=== PATIENT | female | born 1985 | race Caucasian/White ===

== ENCOUNTER → 2018-11-24 16:16 | Outpatient (CLI) | payer SELFPAY ==
[2018-10-25 13:57] VITALS: BMI 22.2
--- NOTE | 2018-11-24 16:20 | US_ITS ---
STUDY: SECOND AND THIRD TRIMESTER OBSTETRICAL ULTRASOUND REASON FOR EXAM: Female, 33 years old. 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 LMP: July 03, 2018. TECHNIQUE: Transabdominal TECHNICAL QUALITY: Adequate. PRIOR ULTRASOUND: None. FINDINGS: There is a single intrauterine fetus. The fetus is in a transverse lie with the head on the maternal right side. There is demonstrated cardiac activity with a heart rate of 167 bpm. There is a normal amniotic fluid volume. The placenta is posterior in location and is not low lying. There are Grade 0 placental changes. The cervix measures 4.6 cm in length. The bilateral adnexal regions are normal. BIOMETRY: BPD: 4.88 cm: 20 weeks, 6 days HC: 18.32 cm: 20 weeks, 5 days AC: 15.75 cm: 21 weeks, 0 days FL: 3.58 cm: 21 weeks, 3 days CI: FL/BPD: 73 FL/HC: FL/AC: 23 HC/AC: 1.16 age by current US: 21 weeks, 0 days. KASHIF by current US: April 06, 2019. Estimated weight: 395 grams, +/- 58 grams, 71 %. Age by LMP: 20 weeks, 4 days. KASHIF by LMP: April 09, 2019. ANATOMY: Gender: Male Cranium: Normal lateral ventricles. Normal choroid plexus. Normal cerebellum. Normal cisterna magna. Normal face, nose and lips. Chest: Normal 4-chamber heart. Abdomen/Pelvis: Normal diaphragm. Normal stomach. Normal abdominal wall. Normal cord insertion. Normal 3 vessel cord. Normal kidneys. Normal bladder. Spine: Normal cervical spine. Normal thoracic spine. Normal lumbar spine. Normal sacrum. Extremities: Normal bilateral upper extremities. Normal bilateral lower extremities. US/OB Anatomy Scan IMPRESSION: 1. Live single intrauterine at 21 weeks, 0 days. KASHIF is April 06, 2019. 2. EFW 395 g. 3. Anterior grade 0 placenta. 4. Adequate amniotic fluid. 5. Transverse lie with head to maternal right. 6. No visualized anatomic abnormality. Electronically Signed: Richard Enlgand DO at 9:47 EDT Tel [phone], Service support ,
== END ==
PROVIDERS: Referring Provider Nurse Practitioner Women's Health; Visit Provider Nurse Practitioner Women's Health
DX: Z34.02 Encounter for supervision of normal first pregnancy, second trimester (principal)
CPT/HCPCS: 76805

== ENCOUNTER → 2019-01-21 | Outpatient (CLI) | payer SELFPAY ==
[2019-01-21 10:27] VITALS: BMI 22.2
[2019-01-21 11:51] LABS: Absolute Neutrophil Count 7.5 X10^3/uL (2.0-7.7); Basophil# 0.02 X10^3/uL; Basophil% 0.2 % (0-1); Eosinophil# 0.29 X10^3/uL; Eosinophils% 2.9 % (0-5); Hematocrit 33.1 % (37-47); Hemoglobin 11.2 g/dl (12.0-15.0); Lymphocyte % 14.2 % (19-41); Mean Corp Hgb Conc 33.8 g/gl (32-36); Mean Corpuscular Hgb 30.4 pg (27.0-32.0); Mean Corpuscular Volume 89.7 fL (81-99); Mean Platelet Vol. 9.2 fl (6.2-12.0); Monocyte# 0.63 X10^3/uL; Monocyte% 6.4 % (0-10); Neutrophil # 7.52 X10^3/uL (2.7-7.7); Platelet Count 285 K/mm3 (150-450); RBC Distribution Width CV 12.8 % (11.6-14.6); RBC Distribution Width SD 41.1 fl (35.1-43.9); Red Blood Count 3.69 M/mm3 (4.2-5.4); White Blood Count 9.9 K/mm3 (4.4-11.0)
[2019-01-21 11:56] LABS: POSITIVE COUNT NO; POSITIVE DIFFERENTIAL NO; POSITIVE MORPHOLOGY NO
[2019-01-21 12:05] LABS: Glucose Challenge Gest 1H 50g 90 mg/dL (70-140)
[2019-01-22 12:33] LABS: HEPATITIS B SURFACE AG Negative (Negative)
[2019-01-28 01:44] LABS: Rapid Plasmin Reagin (RPR) NONREACTIVE (NONREACTIVE)
== END | disposition home or self-care (01) ==
LOC: LAB 10:36
PROVIDERS: Referring Provider Nurse Practitioner Women's Health; Visit Provider Nurse Practitioner Women's Health
DX: Z34.90 Encounter for supervision of normal pregnancy, unspecified, unspecified trimester (principal)
CPT/HCPCS: 36415; 82950; 85025; 86592; 87340

== ENCOUNTER → 2019-03-16 | Outpatient (CLI) | payer SELFPAY ==
[2019-03-16 11:36] VITALS: BMI 22.2
== END | disposition home or self-care (01) ==
PROVIDERS: Referring Provider Obstetrics & Gynecology; Visit Provider Obstetrics & Gynecology
DX: Z34.90 Encounter for supervision of normal pregnancy, unspecified, unspecified trimester (principal)
CPT/HCPCS: 87081

== ENCOUNTER 2019-04-04 05:23 | Inpatient (IN) | payer SELFPAY ==
[2018-10-25 13:57] VITALS: BMI 22.2
[2019-03-30 12:02] VITALS: BMI 22.2
--- NOTE | 2019-04-04 05:50 | HP.PCM_ITS ---
- Problem List (1) Active labor at term Status: Acute (2) Susceptible to varicella (non-immune), currently Status: Acute Comment: had disease as a child, negative immunity, discussed avoidance (3) Rubella non-immune status, antepartum Status: Acute Comment: can't maintain immunity, given vaccine (4) Status: Acute Qualifiers: Comment: carrier screening negative, normal anatomy, reviewed [facility] records (5) Supervision of normal Status: Acute Qualifiers: Comment: PRR KASHIF 04/09/19 Arvind History Date of Admission: 04/04/19 Final KASHIF: 04/09/19 Gestational age: 39 Weeks and 2 Days History of this : This is a 33 year-old, , at 39w2d weeks gestational age comes in active labor 5 cm dilated. She has had some bloody show and regular contractions since 3 AM. Patient denies any loss of fluid and admits good movement. Patient has had an uncomplicated so far with a history of infertility.. Medical History: Medical History (Last Reviewed 03/23/19 @ 11:49 by Alondra Alston) Infertility Surgical History: Surgical History (Last Reviewed 03/23/19 @ 11:49 by Alondra Alston) H/O wisdom tooth extraction K08.409 History of hysteroscopy Z98.890 Allergies No Known Allergies Allergy (Verified 03/23/19 11:48) Home Medications: Home Medications vitamin#30 30 mg iron-10 mg iron-folic acid 1 mg-omg3 capsule cap PO cap 03/02/19 Smoking Status: Never smoker Alcohol: None Number of Fetus(es): 1 Heart Tracing: fht 130 moderate variability reactive no decelerations category I tracing [facility]: regular History Past Pregnancies: Past Pregnancies Delivery Date Name GA/Weeks Outcome Route Weight Gender Labor Length Anesthesia Delivery Location Provider FOB Labs: Social History Smoking Status Never smoker Expected Delivery Method: Spontaneous Vaginal Review of Systems Constitutional: Denies: Fever, Malaise Eyes: Denies: Blurred vision, Vision Change HEENT: Denies: Head Aches, Visual Changes Cardiovascular: Denies: Chest Pain, Palpitations Respiratory: Denies: Cough, Shortness of Breath, Wheezing Gastrointestinal: Denies: Abdominal Pain, Diarrhea, Nausea, Vomiting Genitourinary: Denies: Dysuria, Hematuria Musculoskeletal: Denies: Joint Pain, Muscle pain Skin: Denies: Lesions, Rash Neurological: Denies: Blurred vision, Focal weakness, Headaches Psychiatric: Denies: Anxiety, Depression Endocrine: Denies: Heat/ Cold Intolerance Hematologic/ Lymphatic: Denies: Easy Bruising, Easy Bleeding Physical Exam General: Alert, Cooperative, No apparent distress HEENT: Atraumatic, Normocephalic. Negative for: Thyromegaly, Lymphadenopathy Cardiovascular: Regular rate Lungs: Normal air movement Abdomen: Soft, Non Tender, Gravid Neurological: Deep Tendon Reflexes 2+/4 and Symmetrical, Neuro grossly intact. 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 Negative for: Vulvar lesions Estimated gestational size: Appropriate for gestational size Presentation: Cephalic Cervix Dilation (cm): 5 Station: 0 Effacement (%): 80 Assessment/Plan All Active Problems (Last Reviewed 03/23/19 @ 11:49 by Alondra Alston) Active labor at term (Acute) Susceptible to varicella (non-immune), currently (Acute) Rubella non-immune status, antepartum (Acute) (Acute) Supervision of normal (Acute) This is a 33 year-old, , at 39 weeks gestational age presents IAL. Patient presents IAL, plan expectant management for , pitocin/AROM PRN if needed. Pain management: Prefers minimal intervention but open . GBS negative. Management of any complications: None I have reviewed the [facility] and made any clinically relevant updates.
[2019-04-04 05:53] VITALS: BMI 27.1
[2019-04-04] MEDS: Lactated Ringers 1,000 ML 50 ML IV ×2 (05:56→07:06)
[2019-04-04 06:19] LABS: Absolute Lymphocyte Count 2.01 X10^3/uL (0.83-4.51); Absolute Neutrophil Count 6.4 X10^3/uL (2.0-7.7); Basophil# 0.04 X10^3/uL; Basophil% 0.4 % (0-1); Eosinophil# 0.32 X10^3/uL; Eosinophils% 3.4 % (0-5); Hematocrit 37.3 % (37-47); Hemoglobin 12.8 g/dL (12.0-15.0); Lymphocyte # 2.01 X10^3/ul (4.0); Lymphocyte % 21.2 % (19-41); Mean Corp Hgb Conc 34.3 g/dL (32-36); Mean Corpuscular Hgb 31.6 pg (27.0-32.0); Mean Corpuscular Volume 92.1 fL (81-99); Monocyte# 0.69 X10^3/uL; Monocyte% 7.3 % (0-10); NRBC Flagged by Analyzer 0 % (0-5); Neutrophil # 6.35 X10^3/uL (2.7-7.7); Neutrophil % 67.2 % (47-70); Platelet Count 247 K/mm3 (150-450); RBC Distribution Width CV 12.3 % (11.6-14.6); Red Blood Count 4.05 M/mm3 (4.2-5.4); White Blood Count 9.5 K/mm3 (4.4-11.0)
[2019-04-04] MEDS: Nalbuphine 10 MG/ML Ampul IV (07:06)
[2019-04-04] MEDS: 0.9% Saline Lock 10 ML Syringe IV (07:06)
[2019-04-04] MEDS: Oxytocin 30 units/NS 500 ml 30 UNITS/500 ML IV.SOLN 334 UNITS IV (10:05)
--- NOTE | 2019-04-04 10:31 | OP.PCM_ITS ---
Problem List (1) Active labor at term Status: Acute (2) Susceptible to varicella (non-immune), currently Status: Acute Comment: had disease as a child, negative immunity, discussed avoidance (3) Rubella non-immune status, antepartum Status: Acute Comment: can't maintain immunity, given vaccine (4) Status: Acute Qualifiers: Comment: carrier screening negative, normal anatomy, reviewed [facility] records (5) Supervision of normal Status: Acute Qualifiers: Comment: PRR KASHIF 04/09/19 Arvind Vaginal Delivery Maternal Presentation: Active Labor ial 39 weeks Amniotic Membrane Rupture Type: Spontaneous Amniotic Fluid Description: Clear Final KASHIF: 04/09/19 Gestational age: 39 Weeks and 2 Days Date of Procedure: 04/04/19 Pre-Operative Diagnosis: ial Post-Operative Diagnosis: same Surgery/ Procedure Performed: Spontaneous Vaginal Delivery Type of Anesthesia: Local with 1% lidocaine Description of Procedure: Patient began pushing and delivered the head in the LIZ presentation. The head was delivered atraumatically. The anterior and posterior shoulders delivered without complication followed by the rest of the infant and the was placed on the maternal abdomen. Delayed cord clamping was employed for approximately 60 seconds. Cord was clamped and cut and gentle traction was applied to the cord and the placenta delivered spontaneously immediately following it was noted to be intact with three-vessel cord. The perineum and vagina were inspected and to have a second-degree perineal laceration was repair ed in the usual fashion with 3-0 Vicryl repeat. EBL was 100 cc. Patient and infant tolerated delivery well. Presentation: LIZ Placental Delivery Description: Spontaneous Cord Vessel Description: 3 Vessels Cord Entanglement: None Estimated Blood Loss: 100 A gender: Male Episiotomy Description: None Laceration: Perineal Extension/lac, 2nd degree Medications given after delivery: IV Pitocin Complications: None
[2019-04-04] MEDS: Oxytocin 30 units/NS 500 ml 30 UNITS/500 ML IV.SOLN 167 UNITS IV (10:35)
[2019-04-04] MEDS: Naproxen 250 MG Tablet 500 MG PO ×2 (12:05→21:43)
[2019-04-04 14:51] VITALS: BP 107/74; PULSE 85; RESP 16; TEMP 36.4; O2SAT 95
[2019-04-04 15:30] VITALS: BP 107/63; PULSE 78; RESP 15; TEMP 36.8
[2019-04-04 20:20] VITALS: BP 130/79; PULSE 75; RESP 16; TEMP 36.9; O2SAT 100
[2019-04-04 23:41] VITALS: BP 117/63; PULSE 67; RESP 16; TEMP 36.9; O2SAT 98
[2019-04-05 03:50] VITALS: BP 120/61; PULSE 74; RESP 18; TEMP 36.7; O2SAT 99
[2019-04-05 08:25] VITALS: BP 108/62; PULSE 69; RESP 16; TEMP 36.9; O2SAT 96
--- NOTE | 2019-04-05 09:49 | PCM.PN.OB ---
Patient Problems: Active and Suspected Problems (Last Reviewed 03/23/19 @ 11:49 by Alondra Alston) Active labor at term (Acute) Subjective: doing well no complaints pain controlled no CP SOB N V ambulating well tolerating po lochia moderate, going well - Physical Exam General: Alert, Oriented x3 Vital Signs Temp Pulse Resp BP Pulse Ox 98.4 F 69 16 108/62 96 04/05/19 08:25 04/05/19 08:25 04/05/19 08:25 04/05/19 08:25 04/05/19 08:25 Oxygen Delivery Method Room Air Weight: 162 lb 12.8 oz Body Mass Index (BMI) 27.1 Medical Necessity - Tobacco Use Smoking Status: Never smoker Assessment/Plan All Active Problems (Last Reviewed 03/23/19 @ 11:49 by Alondra Alston) Active labor at term (Acute) Susceptible to varicella (non-immune), currently (Acute) Rubella non-immune status, antepartum (Acute) (Acute) Supervision of normal (Acute) s/p PPD # 1 1. routine post delivery care 2. breast feeding- support given 3. rh positive 4. rubella vaccine and varicella vaccine to be given
[2019-04-05] MEDS: Naproxen 250 MG Tablet 500 MG PO (13:17)
[2019-04-05 13:43] VITALS: BP 101/69; PULSE 84; RESP 16; TEMP 36.9; O2SAT 97
[2019-04-05 20:23] VITALS: BP 105/75; PULSE 77; RESP 18; TEMP 36; O2SAT 97
[2019-04-05] MEDS: Acetaminophen 500 MG Tablet 1000 MG PO (20:28)
[2019-04-06 01:38] VITALS: BP 104/60; PULSE 69; RESP 16; TEMP 36.6; O2SAT 97
--- NOTE | 2019-04-06 07:38 | PCM.PN.OB ---
Patient Problems: Active and Suspected Problems (Last Reviewed 03/23/19 @ 11:49 by Alondra Alston) Active labor at term (Acute) Subjective: doing well no complaints pain controlled no CP SOB N V ambulating well tolerating po lochia moderate, going well with some assistance, baby is tongue-tied. Seeing ENT later today. - Physical Exam General: Alert, Oriented x3 Abdomen: Soft, Non Tender, - - FF below U Vital Signs Temp Pulse Resp BP Pulse Ox 97.9 F 69 16 104/60 97 04/06/19 01:38 04/06/19 01:38 04/06/19 01:38 04/06/19 01:38 04/06/19 01:38 Oxygen Delivery Method Room Air Weight: 162 lb 12.8 oz Body Mass Index (BMI) 27.1 Medical Necessity - Tobacco Use Smoking Status: Never smoker Assessment/Plan All Active Problems (Last Reviewed 03/23/19 @ 11:49 by Alondra Alston) Active labor at term (Acute) Susceptible to varicella (non-immune), currently (Acute) Rubella non-immune status, antepartum (Acute) (Acute) Supervision of normal (Acute) s/p PPD # 2 1. routine post delivery care 2. breast feeding- support given 3. rh positive 4. rubella nonimmune 5. 2nd degree perineal lac-enc stool softener 6. home today
--- NOTE | 2019-04-06 07:40 | DCINST_ITS ---
Additional Instructions: If you experience any of the following, contact your healthcare provider. * Bleeding that soaks a pad every hour for 2 hours * Fever 100.4 or higher * Unrelieved incision or abdominal pain * Swelling, redness, discharge or bleeding from your incision or episiotomy site * Your incision begins to separate * Problems urinating (including inability to urinate or burning while urinating). * Visual changes * Severe headache * Flu-like symptoms * Pain or redness in one of both of your breasts * Pain, warmth, tenderness or swelling in your legs, especially the calf area * Frequent nausea and vomiting * Symptoms of depression or anxiety If you experience any of the following, call 911 or go to the nearest Emergency Room. * Chest pain * Problems breathing * Seizure activity * Partial or complete paralysis of a body part, slurred speech, weakness or drooping of the face, or a sudden inability to walk or hold your balance Allergies/Adverse Reactions: Allergies No Known Allergies Allergy (Verified 04/04/19 05:54) Medications to take at Discharge vitamin#30 30 mg iron-10 mg iron-folic acid 1 mg-omg3 capsule 1 cap PO DAILY cap 03/02/19 Primary Care Physician: Care Physician,No Primary [Primary Care Provider] - Test Results: Test results from this visit will be discussed in further detail at your follow- up appointment, if applicable.
--- NOTE | 2019-04-06 07:40 | PCM.DCVAG ---
Additional Instructions: If you experience any of the following, contact your healthcare provider. Bleeding that soaks a pad every hour for 2 hours Fever 100.4 or higher Unrelieved incision or abdominal pain Swelling, redness, discharge or bleeding from your incision or episiotomy site Your incision begins to separate Problems urinating (including inability to urinate or burning while urinating). Visual changes Severe headache Flu-like symptoms Pain or redness in one of both of your breasts Pain, warmth, tenderness or swelling in your legs, especially the calf area Frequent nausea and vomiting Symptoms of depression or anxiety If you experience any of the following, call 911 or go to the nearest Emergency Room. Chest pain Problems breathing Seizure activity Partial or complete paralysis of a body part, slurred speech, weakness or drooping of the face, or a sudden inability to walk or hold your balance Allergies/Adverse Reactions: Allergies No Known Allergies Allergy (Verified 04/04/19 05:54) Medications to take at Discharge vitamin#30 30 mg iron-10 mg iron-folic acid 1 mg-omg3 capsule 1 cap PO DAILY cap 03/02/19 Primary Care Physician: Care Physician,No Primary [Primary Care Provider] - Test Results: Test results from this visit will be discussed in further detail at your follow-up appointment, if applicable.
[2019-04-06 08:40] VITALS: BP 113/70; PULSE 74; RESP 15; TEMP 36.9; O2SAT 96
[2019-04-06] MEDS: Senna/Docusate Sodium 1 Tablet PO (09:16)
[2019-04-06 13:38] VITALS: PULSE 74; RESP 15
== END 2019-04-06 13:25 | disposition home or self-care (01) | DRG 807 ==
PROVIDERS: Admitting Provider Obstetrics & Gynecology; Referring Provider Obstetrics & Gynecology; Visit Provider Obstetrics & Gynecology
DX: O70.1 Second degree perineal laceration during delivery (principal); Z37.0 Single live birth; Z3A.39 39 weeks gestation of pregnancy
CPT/HCPCS: 59025; 59050; 85025; 86850; 86900; 99218; J7120; 90716; A4216; G0378

== ENCOUNTER → 2019-05-24 | Outpatient (CLI) | payer SELFPAY ==
[2019-05-24 10:15] VITALS: BMI 27.1
[2019-05-29 13:36] LABS: HPV APTIMA, High Risk Negative (Negative)
== END | disposition home or self-care (01) ==
PROVIDERS: Referring Provider Obstetrics & Gynecology; Visit Provider Obstetrics & Gynecology
DX: Z12.4 Encounter for screening for malignant neoplasm of cervix (principal)
CPT/HCPCS: 87624; 88175; G0145

== ENCOUNTER → 2020-02-22 | Outpatient (CLI) | payer SELFPAY ==
[2020-02-22 12:07] VITALS: BMI 27.1
[2020-02-22 17:04] LABS: Amphetamine Urine VISTA NEGATIVE (<1000 ng/mL); Barbiturate Urine VISTA NEGATIVE (< 200 ng/mL); Benzodiazepine Urine VISTA NEGATIVE (< 200 ng/mL); Cocaine Urine VISTA NEGATIVE (< 300 ng/mL); Ecstacy Urine VISTA NEGATIVE (< 500 ng/mL); Methadone Urine VISTA NEGATIVE (< 300 ng/mL); PCP Urine VISTA NEGATIVE (< 25 ng/mL); THC Urine VISTA NEGATIVE (< 50 ng/mL); Vista UDS pH Range 6
[2020-02-22 18:59] LABS: Chlamydia Trachomatis by PCR Negative (Negative); Neisserai gonorrhoeae by PCR Negative (Negative); Probe Check PASS; Sample Adequacy Control PASS; Specimen Processing Control PASS
== END | disposition home or self-care (01) ==
LOC: LABSPEC 15:19
PROVIDERS: PCP Nurse Practitioner Family; Referring Provider Obstetrics & Gynecology; Visit Provider Obstetrics & Gynecology
DX: O09.90 Supervision of high risk pregnancy, unspecified, unspecified trimester (principal); Z3A.00 Weeks of gestation of pregnancy not specified
CPT/HCPCS: 80307; 87086; 87088; 87491; 87591

== ENCOUNTER → 2020-03-22 13:58 | Outpatient (CLI) | payer SELFPAY ==
[2020-03-22 13:51] VITALS: BMI 27.1
[2020-03-22 14:36] LABS: Absolute Lymphocyte Count 1.74 X10^3/uL (0.83-4.51); Absolute Neutrophil Count 6.4 X10^3/uL (2.0-7.7); Basophil# 0.03 X10^3/uL; Basophil% 0.3 % (0-1); Eosinophil# 0.28 X10^3/uL; Eosinophils% 3.1 % (0-5); Hematocrit 37.4 % (37-47); Hemoglobin 12.5 g/dL (12.0-15.0); Lymphocyte # 1.74 X10^3/ul (4.0); Lymphocyte % 19.4 % (19-41); Mean Corp Hgb Conc 33.4 g/dL (32-36); Mean Corpuscular Hgb 30.4 pg (27.0-32.0); Mean Platelet Vol. 9.1 fl (6.2-12.0); Monocyte# 0.49 X10^3/uL; Monocyte% 5.5 % (0-10); NRBC Flagged by Analyzer 0 % (0-5); Neutrophil % 71.4 % (47-70); Platelet Count 294 K/mm3 (150-450); RBC Distribution Width CV 12.3 % (11.6-14.6); RBC Distribution Width SD 40.3 fl (35.1-43.9); Red Blood Count 4.11 M/mm3 (4.2-5.4)
[2020-03-24 09:31] LABS: HIV - WCH Non-Reactive (Nonreactive); Hepatitis B Surface Antigen Non-Reactive (Nonreactive); Hepatitis C Antibody Non-Reactive (Nonreactive); Rubella IgG 16.4 IU/mL
[2020-03-29 02:01] LABS: Rapid Plasmin Reagin (RPR) NONREACTIVE (NONREACTIVE)
== END ==
PROVIDERS: PCP Nurse Practitioner Family; Referring Provider Obstetrics & Gynecology; Visit Provider Obstetrics & Gynecology
DX: O09.90 Supervision of high risk pregnancy, unspecified, unspecified trimester (principal); Z3A.00 Weeks of gestation of pregnancy not specified
CPT/HCPCS: 36415; 85025; 86592; 86703; 86762; 86803; 86850; 86900; 86901; 87340

== ENCOUNTER → 2020-05-03 15:51 | Outpatient (CLI) | payer SELFPAY ==
[2020-03-22 13:51] VITALS: BMI 27.1
[2020-04-19 13:55] VITALS: BMI 27.1
--- NOTE | 2020-05-03 15:54 | US_ITS ---
STUDY: SECOND AND THIRD TRIMESTER OBSTETRICAL ULTRASOUND REASON FOR EXAM: Female, 34 years old ANATOMY LMP: 12/20/2019 TECHNIQUE: Transabdominal TECHNICAL QUALITY: Adequate. PRIOR ULTRASOUND: None. FINDINGS: There is a single intrauterine fetus. The fetus is in a cephalic presentation. There is demonstrated cardiac activity with a heart rate of 156 bpm. There is a normal amniotic fluid volume. The largest amniotic fluid pocket measures 2.4 cm. The placenta is anterior in location and is not low lying. There are Grade 0 placental changes. Placental lakes are seen. The cervix measures 3.4 cm in length. The bilateral adnexal regions are normal. BIOMETRY: BPD: 4.3: 18 weeks, 6 days HC: 16.3: 19 weeks, 0 days AC: 13.9: 19 weeks, 1 days FL: 2.9: 18 weeks, 5 days CI: FL/BPD: FL/HC: FL/AC: HC/AC: age by current US: 19 weeks, 0 days. KASHIF by current US: 09/27/2020. Estimated weight: 271 grams, +/- grams, 48 %. age by prior US: weeks, days. KASHIF by prior US: . Age by LMP: 19 weeks, 2 days. KASHIF by LMP: 09/25/2020. ANATOMY: Gender: Male Cranium: Normal lateral ventricles. Normal choroid plexus. Normal cerebellum. Normal cisterna magna. Normal face, nose and lips. Chest: Normal 4-chamber heart. Abdomen/Pelvis: Normal diaphragm. Normal stomach. Normal abdominal wall. Normal cord insertion. Normal 3 vessel cord. Normal kidneys. Normal bladder. Spine: Normal cervical spine. Normal thoracic spine. Normal lumbar spine. Normal sacrum. Extremities: Normal bilateral upper extremities. Normal bilateral lower extremities. US/OB Anatomy Scan IMPRESSION: Single live fetus in a vertex presentation. No demonstrated anatomic abnormality. Placenta is grade 0 and is not low-lying. Cervix is closed. age by current US: 19 weeks, 0 days. KASHIF by current US: 09/27/2020. Estimated weight: 271 grams, +/- grams, 48 %. Electronically Signed: Angus Talley MD at 20:00 EDT , Service support ,
== END ==
LOC: OPUS 15:54 → US 15:56
PROVIDERS: PCP Nurse Practitioner Family; Referring Provider Nurse Practitioner Women's Health; Visit Provider Nurse Practitioner Women's Health
DX: O09.90 Supervision of high risk pregnancy, unspecified, unspecified trimester (principal); Z3A.00 Weeks of gestation of pregnancy not specified
CPT/HCPCS: 76805

== ENCOUNTER → 2020-06-21 12:32 | Outpatient (CLI) | payer SELFPAY ==
[2020-05-17 13:35] VITALS: BMI 27.1
[2020-06-21 13:36] LABS: Absolute Lymphocyte Count 1.55 X10^3/uL (0.83-4.51); Absolute Neutrophil Count 7.1 X10^3/uL (2.0-7.7); Basophil# 0.04 X10^3/uL; Basophil% 0.4 % (0-1); Eosinophil# 0.39 X10^3/uL; Hematocrit 35.7 % (37-47); Hemoglobin 11.5 g/dL (12.0-15.0); Lymphocyte # 1.55 X10^3/ul (4.0); Lymphocyte % 16.1 % (19-41); Mean Corp Hgb Conc 32.2 g/dL (32-36); Mean Corpuscular Hgb 30.2 pg (27.0-32.0); Mean Corpuscular Volume 93.7 fL (81-99); Mean Platelet Vol. 9.3 fl (6.2-12.0); Monocyte# 0.51 X10^3/uL; Monocyte% 5.3 % (0-10); NRBC Flagged by Analyzer 0 % (0-5); Neutrophil # 7.11 X10^3/uL (2.7-7.7); Neutrophil % 73.9 % (47-70); Platelet Count 275 K/mm3 (150-450); RBC Distribution Width CV 13.1 % (11.6-14.6); RBC Distribution Width SD 44.9 fl (35.1-43.9); Red Blood Count 3.81 M/mm3 (4.2-5.4); White Blood Count 9.6 K/mm3 (4.4-11.0)
[2020-06-21 13:52] LABS: Glucose Challenge Gest 1H 50g 89 mg/dL (70-140)
== END ==
PROVIDERS: Obstetrics & Gynecology; PCP Nurse Practitioner Family; Referring Provider Obstetrics & Gynecology; Visit Provider Obstetrics & Gynecology
DX: O09.90 Supervision of high risk pregnancy, unspecified, unspecified trimester (principal); Z13.1 Encounter for screening for diabetes mellitus; Z3A.00 Weeks of gestation of pregnancy not specified
CPT/HCPCS: 36415; 82950; 85025; 86850; 86900; 86901

== ENCOUNTER → 2020-08-28 | Outpatient (CLI) | payer SELFPAY ==
[2020-08-28 13:40] VITALS: BMI 27.0
== END | disposition home or self-care (01) ==
PROVIDERS: PCP Nurse Practitioner Family; Visit Provider Obstetrics & Gynecology
DX: O09.90 Supervision of high risk pregnancy, unspecified, unspecified trimester (principal); Z3A.00 Weeks of gestation of pregnancy not specified
CPT/HCPCS: 87077; 87081; 87186

== ENCOUNTER 2020-09-24 12:50 | Inpatient (IN) | payer SELFPAY ==
[2020-09-24] VITALS (28 sets, daily range): BP systolic 100–122; BP diastolic 56–72; PULSE 68–86; RESP 16; TEMP 36.6–37.4; O2SAT 93–100; BMI 27.6
[2020-09-24] MEDS: Lactated Ringers 1,000 ML 50 ML IV (13:15)
[2020-09-24 13:24] LABS: Absolute Lymphocyte Count 1.56 X10^3/uL (0.83-4.51); Basophil# 0.04 X10^3/uL; Basophil% 0.3 % (0-1); Eosinophil# 0.15 X10^3/uL; Eosinophils% 1.2 % (0-5); Hematocrit 37.2 % (37-47); Hemoglobin 12.5 g/dL (12.0-15.0); Lymphocyte # 1.56 X10^3/ul (4.0); Lymphocyte % 12.5 % (19-41); Mean Corp Hgb Conc 33.6 g/dL (32-36); Mean Corpuscular Hgb 30.9 pg (27.0-32.0); Mean Corpuscular Volume 91.9 fL (81-99); Mean Platelet Vol. 9.5 fl (6.2-12.0); Monocyte# 0.73 X10^3/uL; Monocyte% 5.8 % (0-10); NRBC Flagged by Analyzer 0 % (0-5); Neutrophil # 9.95 X10^3/uL (2.7-7.7); Neutrophil % 79.7 % (47-70); Platelet Count 269 K/mm3 (150-450); RBC Distribution Width CV 12.7 % (11.6-14.6); RBC Distribution Width SD 42.5 fl (35.1-43.9); Red Blood Count 4.05 M/mm3 (4.2-5.4); White Blood Count 12.5 K/mm3 (4.4-11.0)
[2020-09-24] MEDS: Lactated Ringers 500 ML 999 ML IV (14:17)
[2020-09-24] MEDS: Oxytocin 30 units/NS 500 ml 30 UNITS/500 ML IV.SOLN 334 UNITS IV (14:46)
[2020-09-24] MEDS: Naproxen 250 MG Tablet 500 MG PO (15:43)
[2020-09-24] MEDS: Acetaminophen 500 MG Tablet 1000 MG PO (20:04)
[2020-09-24] MEDS: Senna/Docusate Sodium 1 Tablet PO (20:05)
[2020-09-25] MEDS: Naproxen 250 MG Tablet 500 MG PO (02:30)
[2020-09-25 04:30] VITALS: BP 106/64; PULSE 70; RESP 16; TEMP 37.2; O2SAT 95
--- NOTE | 2020-09-25 08:01 | HP.PCM_ITS ---
- Problem List (1) Active labor at term Status: Acute (2) 37 weeks gestation of Status: Acute Comment: electronic test ordered 09/04/20 (scheduled 09/20/20 @ 9:40) (3) AMA (advanced maternal age) multigravida 35+ Status: Acute Qualifiers: Comment: genetic counseling provided and declined. Discussed growth at 36 weeks - patient undecided on if wants to have this done as she is self pay (4) GBS (group B Streptococcus carrier), +RV culture, currently Status: Acute Comment: GBS positive plan pcn (5) Status: Acute Qualifiers: Comment: declines carrier, ntd, and genetic screening. Anatomy US normal (6) Rubella non-immune status, antepartum Status: Acute Comment: can't maintain immunity, given vaccine in past, states had disease as a child. 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 Lisa Heard MD) adopted: No household members: spouse housing: house number of children: 1 pets and animals: No history of recent travel: Yes Smoking Status: Never smoker second hand exposure: No alcohol intake: never substance use type: does not use lorenzo/rastafarian: Mennonite seatbelt use: always do you feel safe at home: Yes additional social history: Arvind- works at a [employer] [place] Pregancy History 2 Elective abortions Hx Para 1 Spontaneous abortions Hx # Term Pregnancies Ectopic pregnancies Hx # Pregnancies Multiple births # of living children 1 Past Pregnancies Del. Date Name GA/Weeks Outcome Route Bth Weight Infant Gen Labor Lgth Anesthesia Del Locatn Provider FOB 04/04/19 Beau 39 live - full term 7lbs Male local [facility] Delivery Date: 04/04/19 2 degree laceration Digna Sampson HPI est ob PER SM 40w: Details: ALEJANDRA RUSH is a 35 year old G2, P1 at 39 weeks 6 days presents in active labor OB Visit KASHIF Calculator Estimated Delivery Date Method Current WG Current Estimate 09/25/20 LMP (Certain) 39w 6d Other Estimates 09/27/20 Ultrasound #1 39w 4d Expected Delivery Route/Plan by 41 weeks. Labor Preferences- labor support person: Arvind pain management options preferred: plan natural, open to epidural labor intervention preferences: open to standard interventions, considering tub or shower in labor cut cord/dad catch: cord : yes PP control planned: discussed possible routes of delivery and associated risks: special requests: none Specific Issue/Plans flu vaccine: given 06/21 tdap vaccine: declines rhogam: NA LARC form signed: 07/30 movement and labor precautions reviewed. Problem list reviewed and updated with the most current plan of care details and appropriate orders placed. Relevant counseling for the gestational age provided. Continue routine care and follow up unless otherwise noted in visit notes/problem list details Initial Weight: 138 lb Date EGA Weight BP Urine Prot Glucose FHR FuHt Pres Dilation Effaced St Visit Note 03/22/20 13w 2d 139 lb 4 oz (+1 lb 4 oz) 108/66 Negative Negative 165 MH-No VB, lof. Will get labs today. Mother in law with covid-she has not been with her. 04/19/20 17w 2d 141 lb (+3 lb) 120/64 Negative Negative 150 SM- no vb lof good fm no regular ctx 05/17/20 21w 2d 144 lb (+6 lb) 104/72 150 SM- no vb cramping had US 06/21/20 26w 2d 151 lb 8 oz (+13 lb 8 oz) 110/72 Negative Negative 155 26 GP - no cramping, LOF, VB, DFM. Denies complaints. Recently returned from trip to [place]. Glucose test done today. GP - no cramping, LOF, VB, DFM. Denies complaints. Recently returned from trip to [place]. GCT done today. 07/13/20 29w 3d 155 lb (+17 lb) 116/62 Negative Negative 150 SM- no vb lof good fm no regular ctx 07/30/20 31w 6d 162 lb (+24 lb) 100/70 Negative Negative 155 GP - no LOF, VB, DFM, ctx. Denies complaints. Discussed labor preferences. LARC form signed. 08/13/20 33w 6d 164 lb (+26 lb) 116/88 150 33 SM- no vb lof good fm no regular ctx 08/28/20 36w 0d 167 lb 6 oz (+29 lb 6 oz) 120/80 Negative Negative 145 36 Cephalic 2 60 -2 GP - no LOF, VB, DFM, ctx . GBS done today. Discussed growth for AMA - patient unsure if wants to have this done. Patient to discuss with . 09/03/20 36w 6d 167 lb (+29 lb) 100/70 Negative Negative 155 37 Cephalic SMno vb lof good fm no regular ctx 09/10/20 37w 6d 167 lb (+29 lb) 110/68 Negative Negative 150 38 Cephalic 3 60 Sm- no vb lof good fm no regular ctx 09/20/20 39w 2d 169 lb (+31 lb) 102/60 Negative Negative 145 38 Cephalic 4 70 -1 SM- no vb lof good fm no regular ctx, discussed expectant management at this time 09/24/20 39w 6d 171 lb (+33 lb) 100/72 Negative Negative 150 35 Cephalic 4 70 0 SM- no vb lof good fm no r egular ctx plan IOL tomorrow if no spontaneous labor bedside [facility] WNL ACOG First Trimester First Trimester: Diagnostics Diagnostics Diagnostics Blood Type B POSITIVE 09/24/20 Antibody Screen NEGATIVE 09/24/20 Glucose 1 Hr 50 gm 89 mg/dL (70-140) 06/21/20 Hgb 12.5 g/dL (12.0-15.0) 09/24/20 Hct 37.2 % (37-47) 09/24/20 Details: HIV: Urine Culture: Sequential Screen: NIPT Screen: ROS Const Reports system reviewed and no additional complaints, except as docu Card Reports system reviewed and no additional complaints, except as docu Resp Reports system reviewed and no additional complaints, except as docu GI Reports system reviewed and no additional complaints, except as docu, Reports nausea Reports system reviewed and no additional complaints, except as docu Musc Reports system reviewed and no additional complaints, except as docu Exam Const General: cooperative, healthy appearing, comfortable, anxious HENMT Head: normal to inspection Nose: external nose normal Face and sinus: normal facial exam Neck Neck: normal visual inspection, full ROM, no lymphadenopathy Thyroid: thyroid normal Chest Chest palpation & inspection: normal inspection of the chest Resp Effort & Inspection: normal respiratory effort GI Inspection: normal to inspection Palpation: soft, other (gravid uterus) Other: infant vertex and appropriate size for gestational age Other: Cervical Exam: Extrem General: pedal edema Results POC Urinalysis 2 Dip (Clinic) Office Urine Glucose Negative Last Edit by Alondra Alston on 09/24/20 08:2 9 Office Urine Protein Negative Last Edit by Alondra Alston on 09/24/20 08:2 9 Assessment & Plan Problems 1. Rubella non-immune status, antepartum O99.891; Z28.3 can't maintain immunity, given vaccine in past, states had disease as a child. recommend avoidance 2. Z34.90 declines carrier, ntd, and genetic screening. Anatomy US normal 3. AMA (advanced maternal age) multigravida 35+ O09.529 genetic counseling provided and declined. Discussed growth at 36 weeks - patient undecided on if wants to have this done as she is self pay 4. Supervision of high risk , antepartum O09.90 PRR KASHIF 09/25/2020 boy:[place] PC:Chadd Spouse: Arvind 5. GBS (group B Streptococcus carrier), +RV culture, currently O99.820 GBS positive plan pcn 6. 37 weeks gestation of Z3A.37 electronic test ordered 09/04/20 (scheduled 09/20/20 @ 9:40) Orders Orders: POC Urinalysis 2 Dip (Clinic) Today Coding Level of Care Code OB Routine Diagnoses Rubella non-immune status, antepartum O99.891; Z28.3 Z34.90 AMA (advanced maternal age) multigravida 35+ O09.529 Supervision of high risk , antepartum O09.90 GBS (group B Streptococcus carrier), +RV culture, currently O99.820 37 weeks gestation of Z3A.37 Patient presents IAL, plan expectant management for , pitocin/AROM PRN if needed. Pain management: Minimal intervention GBS positive plan IV PCN. Management of any complications: None I have reviewed the [facility] and made any clinically relevant updates.
--- NOTE | 2020-09-25 08:02 | PCM.OPRPT ---
Problem List (1) Active labor at term Status: Acute (2) 37 weeks gestation of Status: Acute Comment: electronic test ordered 09/04/20 (scheduled 09/20/20 @ 9:40) (3) AMA (advanced maternal age) multigravida 35+ Status: Acute Qualifiers: Comment: genetic counseling provided and declined. Discussed growth at 36 weeks - patient undecided on if wants to have this done as she is self pay (4) GBS (group B Streptococcus carrier), +RV culture, currently Status: Acute Comment: GBS positive plan pcn (5) Status: Acute Qualifiers: Comment: declines carrier, ntd, and genetic screening. Anatomy US normal (6) Rubella non-immune status, antepartum Status: Acute Comment: can't maintain immunity, given vaccine in past, states had disease as a child. recommend avoidance (7) Supervision of high risk , antepartum Status: Acute Comment: PRR KASHIF 09/25/2020 boy:[place] PC:Chadd Spouse: Arvind Vaginal Delivery Maternal Presentation: Active Labor Amniotic Membrane Rupture Type: Artificial Amniotic Fluid Description: Clear Final KASHIF: 09/25/20 Gestational age: 40 Weeks and 0 Days Date of Procedure: 09/24/20 Pre-Operative Diagnosis: ial Post-Operative Diagnosis: same Surgery/ Procedure Performed: Spontaneous Vaginal Delivery Type of Anesthesia: Local with 1% lidocaine Description of Procedure: Patient began pushing and delivered the head in the LIZ presentation. The head was delivered atraumatically. The anterior and posterior shoulders delivered without complication followed by the rest of the and the was placed on the maternal abdomen. Delayed cord clamping was employed for approximately 60 seconds. Cord was clamped and cut and gentle traction was applied to the cord and the placenta delivered spontaneously immediately following it was noted to be intact with three-vessel cord. The perineum and vagina were inspected and noted to have a second-degree perineal laceration that was injected with 1% lidocaine and repaired in the usual fashion with 3-0 Vicryl repeat. EBL was 100 cc. Patient and tolerated delivery well. Presentation: LIZ Placental Delivery Description: Spontaneous Placenta Disposition: [facility] Cord Vessel Description: 3 Vessels Cord Entanglement: None Estimated Blood Loss: 100 Infant A gender: Male Episiotomy Description: None Laceration: Perineal Extension/lac, 2nd degree Medications given after delivery: IV Pitocin Complications: None Multi Select Codes - Urinary/Genital Urinary/Genital CPT Codes: 89771 Vaginal Delivery [facility]
--- NOTE | 2020-09-25 08:04 | PCM.PN.OB ---
Patient Problems: Active and Suspected Problems (Last Reviewed 09/24/20 @ 08:25 by Alondra Alston) Active labor at term (Acute) 37 weeks gestation of (Acute) electronic test ordered 09/04/20 (scheduled 09/20/20 @ 9:40) GBS (group B Streptococcus carrier), +RV culture, currently (Acute) GBS positive plan pcn Supervision of high risk , antepartum (Acute) PRR KASHIF 09/25/2020 boy:[place] PC:Chadd Spouse: Arvind REECE (advanced maternal age) multigravida 35+ (Acute) genetic counseling provided and declined. Discussed growth at 36 weeks - patient undecided on if wants to have this done as she is self pay (Acute) declines carrier, ntd, and genetic screening. Anatomy US normal Rubella non-immune status, antepartum (Acute) can't maintain immunity, given vaccine in past, states had disease as a child. recommend avoidance Subjective: Patient doing well without complaints. Tolerating PO. Ambulating and voiding without difficulty. feeding well. Denies chest pain, shortness of breath, calf pain/swelling, fevers, chills, lightheadedness. - Physical Exam Vitals/I&O's: Vital Signs Temp Pulse Resp BP Pulse Ox 99.0 F 70 16 106/64 95 09/25/20 04:30 09/25/20 04:30 09/25/20 04:30 09/25/20 04:30 09/25/20 04:30 Oxygen Delivery Method Room Air Weight: 171 lb 6 oz Body Mass Index (BMI) 27.6 Intake and Output for Last 24 Hours 09/23/20 09/24/20 09/25/20 23:59 23:59 23:59 Intake Total 1008.43 / 1008.43 Output Total 600 / 600 Balance 408.43 / 408.43 General: Alert, Oriented x3 Microbiology Past 72 Hours 09/24/20 13:20 Mucosa - Nose SARS-CoV-2 Antigen (Rapid) - Final Laboratory Results 09/24/20 13:12: WBC 12.5 H, RBC 4.05 L, Hgb 12.5, Hct 37.2, MCV 91.9, MCH 30.9, MCHC 33.6, RDW Std Deviation 42.5, RDW Coeff of Sp 12.7, Plt Count 269, MPV 9.5, Immature Gran % (Auto) 0.500, Neut % (Auto) 79.7 H, Lymph % (Auto) 12.5 L, [place] % (Auto) 5.8, Eos % (Auto) 1.2, Baso % (Auto) 0.3, Absolute Neuts (auto) 10.0 H, Absolute Lymphs (auto) 1.56, Nucleated RBC % 0 09/24/20 13:12: Blood Type B POSITIVE, Antibody Screen NEGATIVE Current Medications Acetaminophen (Acetaminophen 500 Mg Tablet) 1,000 mg PO Q8H PRN PRN PRN Reason: Pain Score 1-3 Last Admin: 09/24/20 20:04 Dose: 1,000 mg Documented by: Bisacodyl (Bisacodyl 10 Mg Suppository) 10 mg RECTAL UD PRN PRN Reason: If no BM Dibucaine (Dibucaine 30 Gm Tube) 1 applic TOPICAL TID PRN PRN; Protocol PRN Reason: Discomfort Hydrocortisone (Hydrocortisone 2.5% Crm) 1 applic TOPICAL TID PRN PRN; Protocol PRN Reason: Discomfort Methylergonovine Maleate (Methylergonovine 0.2 Mg/Ml Ampul) 0.2 mg IM X1 PRN PRN Reason: Excess bleeding/uterine atony Naproxen (Naproxen 250 Mg Tablet) 500 mg PO Q8H PRN PRN PRN Reason: Pain Score 1-3 Last Admin: 09/25/20 02:30 Dose: 500 mg Documented by: Ondansetron HCl (Ondansetron 4 Mg/2 Ml Vial) 4 mg IV Q4H PRN PRN PRN Reason: Nausea Oxycodone HCl (Oxycodone 5 Mg Tablet) 5 - 10 mg PO Q4H PRN PRN PRN Reason: Pain Score 4-10 Senna/Docusate Sodium (Senna/Docusate Sodium 1 Tablet) 1 - 2 tablet PO DAILY PRN PRN PRN Reason: Constipation Last Admin: 09/24/20 20:05 Dose: 2 tablet Documented by: Simethicone (Simethicone 80 Mg Tablet) 80 mg PO PCHS PRN PRN Reason: Indigestion/Stomach pain Sodium Chloride (0.9% Saline Lock 10 Ml Syringe) 5 - 15 ml IV UD PRN PRN Reason: SALINE FLUSH Medical Necessity - Tobacco Use Smoking Status: Never smoker Assessment/Plan All Active Problems (Last Reviewed 09/24/20 @ 08:25 by Alondra Alston) Active labor at term (Acute) 37 weeks gestation of (Acute) GBS (group B Streptococcus carrier), +RV culture, currently (Acute) Supervision of high risk , antepartum (Acute) AMA (advanced maternal age) multigravida 35+ (Acute) (Acute) Rubella non-immune status, antepartum (Acute) Active labor at term (Resolved) Cellulitis (Resolved) Normal glucose level (Resolved) (Resolved) Supervision of normal (Resolved) Susceptible to varicella (non-immune), currently (Resolved) s/p PPD # 1 1. routine post delivery care 2. breast feeding- support given 3. rh positive 4. rubella immune
--- NOTE | 2020-09-25 08:05 | DCINST_ITS ---
Discharge Diet: No Restrictions Discharge Activity: Return to Normal Activity, May not drive while taking narcotic pain medications., May Shower May resume sexual activity in: 4-6 weeks Call your doctor if your incision/area has: Continuous Slow Oozing, Sudden Increased Bleeding, Increased Pain/ Swelling, Increased Redness, Foul Smelling Discharge Additional Instructions: If you experience any of the following, contact your healthcare provider. * Bleeding that soaks a pad every hour for 2 hours * Fever 100.4 or higher * Unrelieved incision or abdominal pain * Swelling, redness, discharge or bleeding from your incision or episiotomy site * Your incision begins to separate * Problems urinating (including inability to urinate or burning while urinating). * Visual changes * Severe headache * Flu-like symptoms * Pain or redness in one of both of your breasts * Pain, warmth, tenderness or swelling in your legs, especially the calf area * Frequent nausea and vomiting * Symptoms of depression or anxiety If you experience any of the following, call 911 or go to the nearest Emergency Room. * Chest pain * Problems breathing * Seizure activity * Partial or complete paralysis of a body part, slurred speech, weakness or drooping of the face, or a sudden inability to walk or hold your balance Allergies/Adverse Reactions: Allergies No Known Allergies Allergy (Verified 09/24/20 08:25) Medications to take at Discharge vitamin#30 30 mg iron-10 mg iron-folic acid 1 mg-omg3 capsule 1 cap PO DAILY cap 03/02/19 Naproxen [Naprosyn] 250 - 500 mg PO Q8H PRN PRN #30 tab 09/25/20 The following prescriptions were given: Naproxen [Naprosyn] 250 - 500 mg PO Q8H PRN PRN #30 tab PRN Reason: MILD PAIN Transmission Status: Pending to [facility] Please Follow Up With: Lisa Heard MD - [phone] When: Call to make an appointment with your doctor in 6 weeks. If you had elevated Blood pressure or 4th degree laceration you will need to be seen in 2 weeks. Primary Care Physician: Aster Starr MEDICAL TRANSLATOR, MEDICAL TRANSLATOR-C [Primary Care Provider] - Test Results: Test results from this visit will be discussed in further detail at your follow- up appointment, if applicable.
--- NOTE | 2020-09-25 08:05 | PCM.DCVAG ---
Discharge Diet: No Restrictions Discharge Activity: Return to Normal Activity, May not drive while taking narcotic pain medications., May Shower May resume sexual activity in: 4-6 weeks Call your doctor if your incision/area has: Continuous Slow Oozing, Sudden Increased Bleeding, Increased Pain/ Swelling, Increased Redness, Foul Smelling Discharge Additional Instructions: If you experience any of the following, contact your healthcare provider. Bleeding that soaks a pad every hour for 2 hours Fever 100.4 or higher Unrelieved incision or abdominal pain Swelling, redness, discharge or bleeding from your incision or episiotomy site Your incision begins to separate Problems urinating (including inability to urinate or burning while urinating). Visual changes Severe headache Flu-like symptoms Pain or redness in one of both of your breasts Pain, warmth, tenderness or swelling in your legs, especially the calf area Frequent nausea and vomiting Symptoms of depression or anxiety If you experience any of the following, call 911 or go to the nearest Emergency Room. Chest pain Problems breathing Seizure activity Partial or complete paralysis of a body part, slurred speech, weakness or drooping of the face, or a sudden inability to walk or hold your balance Allergies/Adverse Reactions: Allergies No Known Allergies Allergy (Verified 09/24/20 08:25) Medications to take at Discharge vitamin#30 30 mg iron-10 mg iron-folic acid 1 mg-omg3 capsule 1 cap PO DAILY cap 03/02/19 Naproxen [Naprosyn] 250 - 500 mg PO Q8H PRN PRN #30 tab 09/25/20 The following prescriptions were given: Naproxen [Naprosyn] 250 - 500 mg PO Q8H PRN PRN #30 tab PRN Reason: MILD PAIN Transmission Status: Pending to [facility] Please Follow Up With: Lisa Heard MD - [phone] When: Call to make an appointment with your doctor in 6 weeks. If you had elevated Blood pressure or 4th degree laceration you will need to be seen in 2 weeks. Primary Care Physician: Aster Starr TWITCHELL OPERATOR, TWITCHELL OPERATOR-C [Primary Care Provider] - Test Results: Test results from this visit will be discussed in further detail at your follow-up appointment, if applicable.
[2020-09-25 08:31] VITALS: BP 105/63; PULSE 76; RESP 16; TEMP 36.9; O2SAT 94
[2020-09-25 12:27] VITALS: BP 106/63; PULSE 73; RESP 16; TEMP 36.6; O2SAT 96
[2020-09-25 17:44] VITALS: BP 117/70; PULSE 68; RESP 15; TEMP 36.7
[2020-09-25 20:29] VITALS: BP 112/64; PULSE 80; RESP 16; TEMP 36.9; O2SAT 95
[2020-09-26 01:33] VITALS: BP 101/56; PULSE 76; RESP 18; TEMP 36.4
--- NOTE | 2020-09-26 07:33 | PCM.PN.OB ---
Patient Problems: Active and Suspected Problems (Last Reviewed 09/25/20 @ 10:59 by Lee Ann Sims) Rubella non-immune status, antepartum (Acute) can't maintain immunity, given vaccine in past, states had disease as a child. recommend avoidance Subjective: Patient doing well without complaints. Tolerating PO. Ambulating and voiding without difficulty. Breast feeding well. Denies chest pain, shortness of breath, calf pain/swelling, fevers, chills, lightheadedness. - Physical Exam Vitals/I&O's: Vital Signs Temp Pulse Resp BP Pulse Ox 97.5 F L 76 18 101/56 L 95 09/26/20 01:33 09/26/20 01:33 09/26/20 01:33 09/26/20 01:33 09/25/20 20:29 Oxygen Delivery Method Room Air Weight: 171 lb 6 oz Body Mass Index (BMI) 27.6 Intake and Output for Last 24 Hours 09/24/20 09/25/20 09/26/20 23:59 23:59 23:59 Intake Total 1008.43 / 1008.43 Output Total 600 / 600 Balance 408.43 / 408.43 General: Alert, Oriented x3 Abdomen: Soft, Non Tender, - - FF below U Microbiology Past 72 Hours 09/24/20 13:20 Mucosa - Nose SARS-CoV-2 Antigen (Rapid) - Final Current Medications Acetaminophen (Acetaminophen 500 Mg Tablet) 1,000 mg PO Q8H PRN PRN PRN Reason: Pain Score 1-3 Last Admin: 09/24/20 20:04 Dose: 1,000 mg Documented by: Bisacodyl (Bisacodyl 10 Mg Suppository) 10 mg RECTAL UD PRN PRN Reason: If no BM Dibucaine (Dibucaine 30 Gm Tube) 1 applic TOPICAL TID PRN PRN; Protocol PRN Reason: Discomfort Hydrocortisone (Hydrocortisone 2.5% Crm) 1 applic TOPICAL TID PRN PRN; Protocol PRN Reason: Discomfort Methylergonovine Maleate (Methylergonovine 0.2 Mg/Ml Ampul) 0.2 mg IM X1 PRN PRN Reason: Excess bleeding/uterine atony Naproxen (Naproxen 250 Mg Tablet) 500 mg PO Q8H PRN PRN PRN Reason: Pain Score 1-3 Last Admin: 09/25/20 02:30 Dose: 500 mg Documented by: Ondansetron HCl (Ondansetron 4 Mg/2 Ml Vial) 4 mg IV Q4H PRN PRN PRN Reason: Nausea Oxycodone HCl (Oxycodone 5 Mg Tablet) 5 - 10 mg PO Q4H PRN PRN PRN Reason: Pain Score 4-10 Senna/Docusate Sodium (Senna/Docusate Sodium 1 Tablet) 1 - 2 tablet PO DAILY PRN PRN PRN Reason: Constipation Last Admin: 09/24/20 20:05 Dose: 2 tablet Documented by: Simethicone (Simethicone 80 Mg Tablet) 80 mg PO PCHS PRN PRN Reason: Indigestion/Stomach pain Sodium Chloride (0.9% Saline Lock 10 Ml Syringe) 5 - 15 ml IV UD PRN PRN Reason: SALINE FLUSH Medical Necessity - Tobacco Use Smoking Status: Never smoker Assessment/Plan All Active Problems (Last Reviewed 09/25/20 @ 10:59 by Lee Ann Sims) Rubella non-immune status, antepartum (Acute) 37 weeks gestation of (Resolved) AMA (advanced maternal age) multigravida 35+ (Resolved) Active labor at term (Resolved) GBS (group B Streptococcus carrier), +RV culture, currently (Resolved) (Resolved) Supervision of high risk , antepartum (Resolved) Active labor at term (Resolved) Cellulitis (Resolved) Normal glucose level (Resolved) (Resolved) Supervision of normal (Resolved) Susceptible to varicella (non-immune), currently (Resolved) s/p PPD # 2 1. routine post delivery care 2. breast feeding- support given 3. rh positive 4. rubella nonimmune 5. home today
[2020-09-26 07:41] VITALS: BP 108/63; PULSE 76; RESP 16; TEMP 36.7; O2SAT 99
== END 2020-09-26 11:45 | disposition home or self-care (01) | DRG 807 ==
LOC: WPOUT 12:52 → WP 12:52
PROVIDERS: Admitting Provider Obstetrics & Gynecology; PCP Nurse Practitioner Family; Referring Provider Obstetrics & Gynecology; Visit Provider Obstetrics & Gynecology
DX: O99.824 Streptococcus B carrier state complicating childbirth (principal); Z37.0 Single live birth; Z3A.40 40 weeks gestation of pregnancy; O70.1 Second degree perineal laceration during delivery
CPT/HCPCS: 59025; 59050; 85025; 86850; 86900; 86901; 87426; 99218; J7120; G0378

== ENCOUNTER → 2023-05-14 | Outpatient (CLI) | payer SELFPAY ==
[2023-05-19 08:11] LABS: Chlamydia By Nucleic Acid AMP Negative (Negative); Gonococcus By Nucleic Acid AMP Negative (Negative)
[2023-05-19 15:08] LABS: HPV APTIMA, High Risk Negative (Negative)
== END | disposition home or self-care (01) ==
PROVIDERS: PCP Nurse Practitioner Family; Referring Provider Advanced Practice Midwife; Visit Provider Advanced Practice Midwife
DX: Z34.90 Encounter for supervision of normal pregnancy, unspecified, unspecified trimester (principal)
CPT/HCPCS: 87086; 87088; 87491; 87591; 87624; 88175; G0145

== ENCOUNTER → 2023-05-14 | Outpatient (CLI) | payer SELFPAY ==
[2023-05-14 14:45] LABS: Absolute Lymphocyte Count 2.15 X10^3/uL (0.83-4.51); Absolute Neutrophil Count 6.8 X10^3/uL (2.0-7.7); Basophil# 0.04 X10^3/uL; Basophil% 0.4 % (0-1); Eosinophil# 0.27 X10^3/uL; Eosinophils% 2.7 % (0-5); Hematocrit 39.2 % (37-47); Hemoglobin 12.8 g/dL (12.0-15.0); Lymphocyte # 2.15 X10^3/ul (0.83-4.51); Lymphocyte % 21.6 % (19-41); Mean Corp Hgb Conc 32.7 g/dL (32-36); Mean Corpuscular Hgb 29.4 pg (27.0-32.0); Mean Corpuscular Volume 90.1 fL (81-99); Mean Platelet Vol. 8.7 fl (6.2-12.0); Monocyte# 0.66 X10^3/uL; Monocyte% 6.6 % (0-10); NRBC Flagged by Analyzer 0 % (0-5); Neutrophil % 68.5 % (47-70); Platelet Count 362 K/mm3 (150-450); RBC Distribution Width SD 39.5 fl (35.1-43.9); Red Blood Count 4.35 M/mm3 (4.2-5.4); White Blood Count 9.9 K/mm3 (4.4-11.0)
[2023-05-14 15:42] LABS: HIV - WCH Non-Reactive (Nonreactive); Hepatitis B Surface Antigen Non-Reactive (Nonreactive); Hepatitis C Antibody Non-Reactive (Nonreactive); Rubella IgG Equiv (Nonreactive); Syphilis Antibodies Non-reactive
== END | disposition home or self-care (01) ==
PROVIDERS: PCP Nurse Practitioner Family; Referring Provider Advanced Practice Midwife; Visit Provider Advanced Practice Midwife
DX: Z34.90 Encounter for supervision of normal pregnancy, unspecified, unspecified trimester (principal)
CPT/HCPCS: 36415; 85025; 86703; 86762; 86780; 86803; 86850; 86900; 86901; 87340

== ENCOUNTER → 2023-07-16 | Outpatient (CLI) | payer SELFPAY ==
--- NOTE | 2023-07-16 12:21 | US_ITS ---
INDICATION: supervision of high risk EXAMINATION: Ultrasound US OB Greater Than 14 Weeks TECHNIQUE: Transabdominal pelvic ultrasound was performed. COMPARISON: No relevant prior comparison study available LMP: 03/02/2023. Beta-hCG: Unknown. Provided EGA: None. FINDINGS: INTRAUTERINE GESTATION(s): Single. HEART MOTION is 152 bpm. BIOMETRIC MEASUREMENTS: HEAD CIRCUMFERENCE: Extreme 0.2 cm which corresponds to 19 weeks. BIPARIETAL DIAMETER: 4.3 cm which corresponds to 19 weeks and 1 day. ABDOMINAL CIRCUMFERENCE: 14 cm which corresponds to 19 weeks and 3 days. FEMORAL LENGTH: 3 cm which corresponds to 19 weeks and 1 day. ESTIMATED DUE DATE (KASHIF): 12/08/2023 ESTIMATED WEIGHT: 282 g +/- 42 g. PRESENTATION: Transverse presentation with the head on the maternal right side. AMNIOTIC FLUID INDEX (LUKE): Within normal limits. Largest pocket measures 5.8 cm. BIOPHYSICAL PROFILE (BPP): Not assessed. PLACENTA: Posterior. There is no placenta previa or abruption. CERVIX: The cervix is closed measuring about 3.3 cm in length. MATERNAL OVARIES: Not seen. FREE FLUID: None. ANATOMY: LATERAL VENTRICLES: Not dilated. CHOROID PLEXUS: Choroid plexus cyst seen measuring about 5 mm. MIDLINE FALX: Visualized. CAVUM SEPTUM PELLUCIDI: Not visualized. CEREBELLUM: Unremarkable CISTERNA MAGNA: 5 mm. UPPER LIP: Grossly intact. FOUR CHAMBER HEART VIEW: Visualized. STOMACH: Visualized. KIDNEYS: Visualized, no hydronephrosis. URINARY BLADDER: Visualized. UMBILICAL CORD INSERTION into the abdomen: Unremarkable. UMBILICAL CORD vessel number: Normal three vessel cord. SPINE: Grossly unremarkable. No posterior spinal defect observed. UPPER AND LOWER EXTREMITIES: Present. GENDER: Male. IMPRESSION: 1. Single live intrauterine with an estimated gestational age of 19 weeks and 2 days. The KASHIF is 12/08/2023. 2. Choroid plexus cyst. Follow-up exam is recommended. Electronically Signed: Tamir Galindo MD at 10:55 [facility] , INDICATION: supervision of high risk EXAMINATION: Ultrasound US OB Greater Than 14 Weeks TECHNIQUE: Transabdominal pelvic ultrasound was performed. COMPARISON: No relevant prior comparison study available LMP: 03/02/2023. Beta-hCG: Unknown. Provided EGA: None. FINDINGS: INTRAUTERINE GESTATION(s): Single. HEART MOTION is 152 bpm. BIOMETRIC MEASUREMENTS: HEAD CIRCUMFERENCE: Extreme 0.2 cm which corresponds to 19 weeks. BIPARIETAL DIAMETER: 4.3 cm which corresponds to 19 weeks and 1 day. ABDOMINAL CIRCUMFERENCE: 14 cm which corresponds to 19 weeks and 3 days. FEMORAL LENGTH: 3 cm which corresponds to 19 weeks and 1 day. ESTIMATED DUE DATE (KASHIF): 12/08/2023 ESTIMATED WEIGHT: 282 g +/- 42 g. PRESENTATION: Transverse presentation with the head on the maternal right side. AMNIOTIC FLUID INDEX (LUKE): Within normal limits. Largest pocket measures 5.8 cm. BIOPHYSICAL PROFILE (BPP): Not assessed. PLACENTA: Posterior. There is no placenta previa or abruption. CERVIX: The cervix is closed measuring about 3.3 cm in length. MATERNAL OVARIES: Not seen. FREE FLUID: None. ANATOMY: LATERAL VENTRICLES: Not dilated. CHOROID PLEXUS: Choroid plexus cyst seen measuring about 5 mm. MIDLINE FALX: Visualized. CAVUM SEPTUM PELLUCIDI: Not visualized. CEREBELLUM: Unremarkable CISTERNA MAGNA: 5 mm. UPPER LIP: Grossly intact. FOUR CHAMBER HEART VIEW: Visualized. STOMACH: Visualized. KIDNEYS: Visualized, no hydronephrosis. URINARY BLADDER: Visualized. UMBILICAL CORD INSERTION into the abdomen: Unremarkable. UMBILICAL CORD vessel number: Normal three vessel cord. SPINE: Grossly unremarkable. No posterior spinal defect observed. UPPER AND LOWER EXTREMITIES: Present. GENDER: Male. US/OB Anatomy w/ Transvaginal IMPRESSION: 1. Single live intrauterine with an estimated gestational age of 19 weeks and 2 days. The KASHIF is 12/08/2023. 2. Choroid plexus cyst. Follow-up exam is recommended. Electronically Signed: Tamir Galindo MD at 10:55 EST ,
== END | disposition home or self-care (01) ==
PROVIDERS: PCP Nurse Practitioner Family; Referring Provider Registered Nurse; Visit Provider Registered Nurse
DX: O09.90 Supervision of high risk pregnancy, unspecified, unspecified trimester (principal); Z3A.00 Weeks of gestation of pregnancy not specified
CPT/HCPCS: 76805; 76817

== ENCOUNTER → 2023-09-11 | Outpatient (CLI) | payer SELFPAY ==
[2023-09-11 11:48] LABS: Absolute Lymphocyte Count 1.83 X10^3/uL (0.83-4.51); Absolute Neutrophil Count 7.4 X10^3/uL (2.0-7.7); Basophil# 0.02 X10^3/uL; Basophil% 0.2 % (0-1); Eosinophil# 0.13 X10^3/uL; Eosinophils% 1.3 % (0-5); Hematocrit 34.5 % (37-47); Hemoglobin 11.6 g/dL (12.0-15.0); Lymphocyte # 1.83 X10^3/ul (0.83-4.51); Lymphocyte % 18.5 % (19-41); Mean Corp Hgb Conc 33.6 g/dL (32-36); Mean Corpuscular Hgb 30.8 pg (27.0-32.0); Mean Corpuscular Volume 91.5 fL (81-99); Mean Platelet Vol. 8.8 fl (6.2-12.0); Monocyte# 0.48 X10^3/uL; Monocyte% 4.8 % (0-10); NRBC Flagged by Analyzer 0 % (0-5); Neutrophil # 7.41 X10^3/uL (2.7-7.7); Neutrophil % 74.9 % (47-70); Platelet Count 294 K/mm3 (150-450); RBC Distribution Width CV 13.3 % (11.6-14.6); Red Blood Count 3.77 M/mm3 (4.2-5.4); White Blood Count 9.9 K/mm3 (4.4-11.0)
--- OUTSIDE RECORDS SUMMARY | 2023-09-11 11:50 | XMS RPT_ITS | CCD ---
Author Name Unknown Address [address] [place] [address] Organization [facility] Care Team Providers Care Envelope Sealing Machine Operator Name Role Phone CAMILO TORRES Unavailable Unavailable CAMILO TORRES Unavailable Unavailable CAMILO TORRES Unavailable Unavailable LORAINE FORD Unavailable Unavailable LORAINE FORD Unavailable Unavailable Problems Problem Classification Problem Date Documented Da te Episodic/Chronic Contraceptive and procreative management (2 sources) Encounter for other general counseling and advice on procreation; Translations: [Encounter for other general counseling and advice on procreation] Onset: 11-11-2017 Episodic Unclassified (2 sources) Encounter for screening for malignant neoplasm of cervix; Translations: [Encounter for screening for malignant neoplasm of cervix] Onset: 11-11-2017 Episodic Results Test Name Value Interpretation Reference Range Facil ity Encounters Encounter Date Encounter Type Care Provider Facility Start: 02-02-2018 End: 02-02-2018 Ambulatory CAMILO TORRES [facility] ital Start: 11-11-2017 End: 11-16-2017 Ambulatory LORAINE FORD Facility:[facility] Payers Date Payer Category Payer Self-pay 1959 Unknown [id number] Summary Purpose Family History No Family History Records FoundNo Family History Records Found Advance Directives No Advanced Directives Records FoundNo Advanced Directives Records Found Additional Source Comments INFORMATION SOURCE (unrecogn ized section and content) DATE CREATED AUTHOR AUTHOR'S ORGANIZ ATION 02/19/[facility] FOR RECORDS PERTAINING TO PATIENTS WHO ARE OR HAVE BEEN ENROLLED IN A CHEMICAL DEPENDENCY/SUBSTANCEABUSE PROGRAM, SOME INFORMATION MAY BE OMITTED. This clinical summary was aggregated from multiple sources. Caution should be exercised in using it in the provision of clinical care. This summary normalizes information from multiple sources, and as a consequence, information in this document may materially change the coding, format and clinical context of patient data. In addition, data may be omitted in some cases. CLINICAL DECISIONS SHOULD BE BASED ON THE PRIMARY CLINICAL RECORDS. [facility] [place] [facility]. provides no warranty or guarantee of the accuracy or completeness of information in this document.
[2023-09-11 12:22] LABS: Glucose Challenge Gest 1H 50g 129 mg/dL (70-140)
[2023-09-11 12:56] LABS: HIV - WCH Non-Reactive (Nonreactive); Syphilis Antibodies Non-reactive
== END | disposition home or self-care (01) ==
LOC: PAVLAB 11:25
PROVIDERS: PCP Nurse Practitioner Family; Referring Provider Obstetrics & Gynecology; Visit Provider Obstetrics & Gynecology
DX: O09.90 Supervision of high risk pregnancy, unspecified, unspecified trimester (principal); Z13.1 Encounter for screening for diabetes mellitus; Z3A.22 22 weeks gestation of pregnancy
CPT/HCPCS: 36415; 82950; 85025; 86703; 86780

== ENCOUNTER → 2023-11-05 | Outpatient (CLI) | payer SELFPAY ==
--- NOTE | 2023-11-05 09:25 | US_ITS ---
STUDY: SECOND AND THIRD TRIMESTER OBSTETRICAL ULTRASOUND - LIMITED REASON FOR EXAM: Female, 38 years old AMA, GROWTH LMP: PRIOR ULTRASOUND: 07/16/2023. TECHNIQUE: Transabdominal TECHNICAL QUALITY: Adequate. FINDINGS: There is a single intrauterine fetus. The fetus is in a cephalic presentation. There is demonstrated cardiac activity with a heart rate of 130 bpm. There is a normal amniotic fluid volume. The largest amniotic fluid pocket measures 5.6 cm. The amniotic fluid index (LUKE) is 14.9 cm. The placenta is posterior in location and is not low lying. There are Grade 1 placental changes. The cervix is not visualized BIOMETRY: BPD: 9.2: 37 weeks, 1 days HC: 32.6: 36 weeks, 6 days AC: 31.8: 35 weeks, 5 days FL: 7.0: 35 weeks, 5 days Age by LMP: 35 weeks, 3 days. KASHIF by LMP: 12/07/2023. age by prior US: weeks, days. KASHIF by prior US: . age by current US: 36 weeks, 2 days. KASHIF by current US: 12/01/2023. Estimated weight: 2854 grams, +/- 428 grams, 68 percentile. Gender: US/OB Limited With Biometrics IMPRESSION: Single live fetus in a vertex presentation. survey not performed on this exam. Placenta is grade 1 and is not low-lying. Cervix is closed. age by current US: 36 weeks, 2 days. KASHIF by current US: 12/01/2023. Estimated weight: 2854 grams, +/- 428 grams, 68 percentile. Electronically Signed: Angus Talley MD at 16:29 EST ,
--- OUTSIDE RECORDS SUMMARY | 2023-11-05 10:13 | XMS RPT_ITS | CCD ---
Author Name Unknown Address [address] [place] [address] Organization [facility] Care Team Providers Care Production Broacher Name Role Phone CAMILO TORRES Unavailable Unavailable [...] Start: 02-02-2018 End: 02-02-2018 Ambulatory CAMILO TORRES [facility] Start: 11-11-2017 End: 11-16-2017 Ambulatory LORAINE АНДРЕЙZAHNE Facility:[facility] Payers Date Payer Category Payer Self-pay 1959 Unknown [id number] Summary Purpose Family History No Family History Records FoundNo Family History Records Found Advance Directives No Advanced Directives Records FoundNo Advanced Directives Records Found Additional Source Comments INFORMATION SOURCE (unrecogn ized section and content) DATE CREATED AUTHOR AUTHOR'S ORGANIZ ATION 02/19/2018 [facility]DS PERTAINING TO [...] BE BASED ON THE PRIMARY CLINICAL RECORDS. [facility]. provides no warranty or guarantee of the accuracy or completeness of information in this document.
== END | disposition home or self-care (01) ==
LOC: US 09:24
PROVIDERS: PCP Nurse Practitioner Family; Referring Provider Advanced Practice Midwife; Visit Provider Advanced Practice Midwife
DX: O09.529 Supervision of elderly multigravida, unspecified trimester (principal); Z3A.00 Weeks of gestation of pregnancy not specified
CPT/HCPCS: 76816

== ENCOUNTER → 2023-11-17 | Outpatient (CLI) | payer SELFPAY | END | disposition home or self-care (01) | LOC: LABSPEC 12:04 | PROVIDERS: PCP Nurse Practitioner Family; Referring Provider Advanced Practice Midwife; Visit Provider Advanced Practice Midwife | DX: Z34.90 Encounter for supervision of normal pregnancy, unspecified, unspecified trimester (principal) | CPT/HCPCS: 87081 ==

== ENCOUNTER 2023-12-08 07:15 | Inpatient (IN) | payer SELFPAY ==
[2023-12-08] VITALS (16 sets, daily range): BP systolic 105–137; BP diastolic 56–79; PULSE 78–100; RESP 16–18; TEMP 36.1–37.3; O2SAT 97–98; BMI 28.8
[2023-12-08 08:15] LABS: Absolute Neutrophil Count 6.9 X10^3/uL (2.0-7.7); Basophil# 0.03 X10^3/uL; Basophil% 0.3 % (0-1); Eosinophil# 0.18 X10^3/uL; Eosinophils% 1.9 % (0-5); Hematocrit 35.5 % (37-47); Hemoglobin 11.7 g/dL (12.0-15.0); Lymphocyte % 17.9 % (19-41); Mean Corpuscular Hgb 29.6 pg (27.0-32.0); Mean Corpuscular Volume 89.9 fL (81-99); Mean Platelet Vol. 9.3 fl (6.2-12.0); Monocyte% 6.3 % (0-10); NRBC Flagged by Analyzer 0 % (0-5); Neutrophil # 6.93 X10^3/uL (2.7-7.7); Neutrophil % 73.1 % (47-70); Platelet Count 286 K/mm3 (150-450); RBC Distribution Width CV 13.3 % (11.6-14.6); RBC Distribution Width SD 43.8 fl (35.1-43.9); Red Blood Count 3.95 M/mm3 (4.2-5.4); White Blood Count 9.5 K/mm3 (4.4-11.0)
[2023-12-08] MEDS: Oxytocin 15 Units/NS 250ml 15 UNITS/250 ML IV.SOLN 2 UNITS IV (08:44)
[2023-12-08] MEDS: Lactated Ringers 1,000 ML 50 ML IV (08:44)
--- NOTE | 2023-12-08 09:08 | HP.PCM.OB_ITS ---
HPI - General General Date of Admission: 12/08/23 HPI Narrative ALEJANDRA RUSH, is a 38 F who presents for IOL secondary to AMA and postdates. she denies any bleeding or LOF admits good fm. irregular ctx Maternal Data Information KASHIF Calculator Estimated Delivery Date Method Current WG Current Estimate 12/07/23 Ultrasound #1 40w 1d Other Estimates 12/14/23 LMP (Certain) [address] [facility] Medical History Choroid plexus cyst Infertility Home Medications vitamin#30 30 mg iron-10 mg iron-folic acid 1 mg-omg3 capsule 1 cap PO DAILY 03/02/19 [History Last Taken 04/03/19 08:00] ondansetron 4 mg disintegrating tablet 4 mg PO Q8H nausea #20 tabs 06/11/23 [Rx Last Taken Unknown] Allergy/AdvReac Type Severity Reaction Status Date / Time No Known Allergies Allergy Verified 12/08/23 08:05 Family History Father Anxiety Surgical History H/O wisdom tooth extraction History of hysteroscopy Social History adopted: No household members: spouse housing: house number of children: 2 pets and animals: No history of recent travel: Yes sexually active: Yes Smoking Status: Never smoker second hand exposure: No alcohol intake: never substance use type: does not use caffeine: No lorenzo/baptist: Mennonite seatbelt use: always do you feel safe at home: Yes additional social history: Arvind- works at a [employer] History 3 Elective abortions Hx Para 2 Spontaneous abortions Hx # Term Pregnancies Ectopic pregnancies Hx # Pregnancies Multiple births # of living children 2 Past Pregnancies Del. Date Name GA/Weeks Outcome Route Bth Weight Gen Labor Lgth Anesthesia Del Locatn Provider FOB 04/04/19 Beau 39 live - full term 7lbs Male [facility] AMBAR 09/25/20 [place] 39 live - full term Male [facility] Félix Delivery Date: 04/04/19 Last Updated by: Digna Sampson 2 degree laceration Delivery Date: 09/25/20 Last Updated by: Maria E Lang IOL Visit Details Expected Delivery Route/Plan Labor Preferences- CB/BF classes: [] labor support person: [] labor intervention preferences: [] pain management options preferred: [] cut cord/dad catch: [] : [] PP control planned: [] discussed possible routes of delivery and associated risks: [] special requests: [] Plans Covid status: declined Flu vaccine: got at health dept Tdap vaccine: [] Rhogam: [] LARC form signed: [] Problem list reviewed and updated with the most current plan of care details and appropriate orders placed. Relevant counseling for the gestational age provided. Continue routine care and follow up unless otherwise noted in visit notes/problem list details OB Flowsheet Initial Weight: 159 lb Date -?-?-?-?-?-?-?-?-?-?-?-?- EGA Weight BP Urine Prot -?-?-?-?-?-?-?-?-?-?-?-?- Glucose FHR FuHt Pres Dilation -?-?-?-?-?-?-?-?-?-?-?-?- Effaced St Visit Note 05/14/23 -?-?-?-?-?-?-?-?-?-?-?-?- 10w 3d 159 lb (+0 oz) 130/83 -?-?-?-?-?-?-?-?-?-?-?-?- 175 -?-?-?-?-?-?-?-?-?-?-?-?- KW-CRL not cons with LMP. reviewed with SM. KASHIF changed 06/11/23 -?-?-?-?-?-?-?-?-?-?-?-?- 14w 3d 157 lb 6 oz (-1 lb 10 oz) 91/64 Trace -?-?-?-?-?-?-?-?-?-?-?-?- Negative 155 -?-?-?-?-?-?-?-?-?-?-?-?- LC- no vb/crampi ng. declines afp. anatomy ordered. 07/08/23 -?-?-?-?-?-?-?-?-?-?-?-?- 18w 2d 161 lb 6 oz (+2 lb 6 oz) 121/73 Negative -?-?-?-?-?-?-?-?-?-?-?-?- Negative 153 -?-?-?-?-?-?-?-?-?-?-?-?- JV- no lof, vagi nal bleeding, or cramping. wants flu shot but will get at health department. 08/06/23 -?-?-?-?-?-?-?-?-?-?-?-?- 22w 3d 168 lb 4 oz (+9 lb 4 oz) 119/79 -?-?-?-?-?-?-?-?-?-?-?-?- 145 -?-?-?-?-?-?-?-?-?-?-?-?- SM- no vb lof go od fm no regualr ctx 09/11/23 -?-?-?-?-?-?-?-?-?-?-?-?- 27w 4d 171 lb (+12 lb) 110/66 110/66 Negative -?-?-?-?-?-?-?-?-?-?-?-?- Negative 145 27 -?-?-?-?-?-?-?-?-?-?-?-?- SM- no vb lof go od fm nor egular ctx cbc gct today and pending 10/05/23 -?-?-?-?-?-?-?-?-?-?-?-?- 31w 0d 173 lb 8 oz (+14 lb 8 oz) 119/75 Negative -?-?-?-?-?-?-?-?-?-?-?-?- Negative 140 31 -?-?-?-?-?-?-?-?-?-?-?-?- KW- no vb/crampi ng. good fm. getting Tdap at health department. LARC done. may want PP tubal. KW- no vb/cramping. good fm. getting Tdap at health department. LARC done. may want PP tubal. 36 week growth US ordered 10/21/23 -?-?-?-?-?-?-?-?-?-?-?-?- 33w 2d 175 lb 4 oz (+16 lb 4 oz) 104/74 Negative -?-?-?-?-?-?-?-?-?-?-?-?- Negative 145 33 -?-?-?-?-?-?-?-?-?-?-?-?- JV- having some stress at home due to not communicating well. 11/05/23 -?-?-?-?-?-?-?-?-?-?-?-?- 35w 3d 175 lb (+16 lb) 119/82 Negative -?-?-?-?-?-?-?-?-?-?-?-?- Negative 140 35 -?-?-?-?-?-?-?-?-?-?-?-?- SM- no vb lof go od fm n oregular ctx 11/17/23 -?-?-?-?-?-?-?-?-?-?-?-?- 37w 1d 178 lb 2 oz (+19 lb 2 oz) 125/76 -?-?-?-?-?-?-?-?-?-?-?-?- 140 37 -?-?-?-?-?-?-?-?--?-?-?-?- KW- no vb/lof/ct x. good fm. GBS today. labor precautions 11/24/23 -?-?-?-?-?-?-?-?-?-?-?-?- 38w 1d 178 lb (+19 lb) 112/78 Negative -?-?-?-?-?-?-?-?-?-?-?-?- Negative 140 37 -?-?-?-?-?-?-?-?-?-?-?-?- SM- no vb lof go od fm no regular ctx 12/03/23 -?-?-?-?-?-?-?-?-?-?--?-?- 39w 3d 177 lb (+18 lb) 115/80 -?-?-?-?-?-?-?-?-?-?-?-?- 140 39 Cephalic 4 -?-?-?-?-?-?-?-?-?-?-?-?- 60 -1 SM- no vb lof good fm no regualr ctx discussed IOL NST FHR Rate Baby A Baseline: 130 Variability:: Moderate Accelerations:: 15 x 15 Decelerations:: None NST Reactive:: Yes FHR Category:: Category I Uterine Activity:: irregular ROS Constitutional Constitutional: Reports systems reviewed and no addt'l complaints, except as documented Eyes Eyes: Denies change in vision ENT HEENT: Reports systems reviewed and no addt'l complaints, except as documented; Denies headache(s) Cardiovascular Cardiovascular: Reports systems reviewed and no addt'l complaints, except as documented; Denies chest pain or dyspnea Respiratory/Chest Respiratory/Chest: Reports systems reviewed and no addt'l complaints, except as documented Gastrointestinal Gastrointestinal: Reports systems reviewed and no addt'l complaints, except as documented; Denies abdominal pain Genitourinary Genitourinary: Reports systems reviewed and no addt'l complaints, except as documented, contractions Details: present (irregular) and movement Details: present; Denies dysuria or genital lesions Musculoskeletal Musculoskeletal: Reports systems reviewed and no addt'l complaints, except as documented Neurologic Neurologic: Reports systems reviewed and no addt'l complaints, except as documented Endocrine Endocrinology: Reports systems reviewed and no addt'l complaints, except as documented Vital Signs Vital Signs Vital Signs: 12/08/23 07:39 12/08/23 07:39 Pulse Rate 93 Blood Pressure 124/61 H BP Systolic 124 BP Diastolic 61 Weight Weight: 179 lb 4 oz Body Mass Index (BMI) 28.8 Physical Exam Const alert, oriented x3, no apparent distress and healthy appearing HEENT normocephalic and moist oral mucous membranes Head and Scalp: atraumatic Neck full ROM, no lymphadenopathy, supple and thyroid normal General: trachea midline Lymph Lymphatic: no lymphadenopathy noted Chest inspection of chest normal Resp normal respiratory effort Cardio regular rate GI normal to inspection, nondistended, normoactive bowel sounds, soft to palpation and non-tender Inspection: gravid external exam normal Manual OB Exam: estimated gestational size appropriate, presentation cephalic, dilated, effaced and station Extremity normal to inspection General Extremity: Negative for edema Skin no rashes or lesions noted Neuro no focal motor deficits and deep tendon reflexes 2+ bilaterally Motor Exam: strength 5/5 throughout and clonus absent Psych mental status grossly normal Labs Labs Labs: Blood Type B POSITIVE Antibody Screen NEGATIVE Hct 35.5 % (37-47) L Hgb 11.7 g/dL (12.0-15.0) L Obstetrics Ultrasound Syphilis Total Ab Non-reactive Rubella IgG Antibody Equiv (Nonreactive) Hep Bs Antigen Non-Reactive (Nonreactive) Hepatitis C Antibody Non-Reactive (Nonreactive) Chlamydia DNA (ANDREA) Negative (Negative) N.gonorrhoeae DNA (ANDREA) Negative (Negative) HIV 1&2 Antibody Non-Reactive (Nonreactive) Glucose 1 Hr 50 gm 129 mg/dL (70-140) Rhogam given: No Assessment & Plan (1) Choroid plexus cyst: COMMENT: offered NIPT, patient declined. (2) Family history of hemophilia: COMMENT: update peds at delivery father in law has it, FOB not affected (3) AMA (advanced maternal age) multigravida 35+: COMMENT: genetic counseling provided and will consider, growth US at 36 weeks. (68%) (4) Supervision of high risk , antepartum: COMMENT: PRR KASHIF 12/18/2023 boy PC: [place] Florentino Spouse: Arvind (5) : QUALIFIERS: Weeks of gestation: 39 weeks Qualified Code(s): Z3A.39 - 39 weeks gestation of COMMENT: GBS neg, Discussed NIPT, afp and carrier screening declined. anatomy reveiwed. (6) Rubella non-immune status, antepartum: COMMENT: can't maintain immunity, given vaccine in past, states had disease as a child. recommend avoidance PLAN: Plan Patient presents IOL, plan management for with pitocin/AROM. Pain management: minimal intervention. GBS negative. Management of any complications: ama I have reviewed the [facility] and made any clinically relevant updates.
[2023-12-08 09:42] LABS: Syphilis Antibodies Non-reactive
[2023-12-08] MEDS: Oxytocin 15 Units/NS 250ml 15 UNITS/250 ML IV.SOLN 83 UNITS IV (15:30)
--- NOTE | 2023-12-08 17:39 | EX.PCM.OBRPT ---
Assessment & Plan (1) Choroid plexus cyst: COMMENT: offered NIPT, patient declined. (2) Family history of hemophilia: COMMENT: update peds at delivery father in law has it, FOB not affected (3) AMA (advanced maternal age) multigravida 35+: COMMENT: genetic counseling provided and will consider, growth US at 36 weeks. (68%) (4) Supervision of high risk , antepartum: COMMENT: PRR KASHIF 12/18/2023 boy PC: [place] Florentino Spouse: Arvind (5) : QUALIFIERS: Weeks of gestation: 39 weeks Qualified Code(s): Z3A.39 - 39 weeks gestation of COMMENT: GBS neg, Discussed NIPT, afp and carrier screening declined. anatomy reveiwed. (6) Rubella non-immune status, antepartum: COMMENT: can't maintain immunity, given vaccine in past, states had disease as a child. recommend avoidance (7) Vaginal delivery: COMMENT: boy Madi SM 40 IOL AMA Maternal Data Information KASHIF Calculator Estimated Delivery Date Method Current WG Current Estimate 12/07/23 Ultrasound #1 40w 1d Other Estimates 12/14/23 LMP (Certain) 39w 1d Vaginal Delivery Operative Information Pre-Operative Diagnosis: see a/p diagnoses Post-Operative Diagnosis: same Surgery / Procedure Performed: Spontaneous Vaginal Delivery Type of Anesthesia: Local with 1% Lidocaine Special Medications: none Estimated Blood Loss: 200 Fluids Replaced: crystalloid Findings Description of Procedure: Patient began pushing and delivered the head in the LIZ presentation. The head was delivered atraumatically . The anterior and posterior shoulders delivered without complication followed by the rest of the infant and the was placed on the maternal abdomen. Delayed cord clamping was employed for approximately 60 seconds. Cord was clamped and cut and gentle traction was applied to the cord and the placenta delivered spontaneously immediately following it was noted to be intact with three-vessel cord. The perineum and vagina were inspected and noted to have a first degree perineal laceration which was repaired in the usual fashion after injecting with lidocaine with 3-0 vicryl rapide. EBL was 200 cc. Patient and infant tolerated delivery well. Amniotic Fluid Description: Clear Placental Delivery Description: Spontaneous Placenta Disposition: [facility] Cord Vessel Description: 3 Vessels Cord Entanglement: None Delayed Cord Clamping: Yes Post Vaginal Delivery Medications Given After Delivery: IV Pitocin Episiotomy Description: None Complication Complications: None Procedures Urinary/Genital [id number]: [id number] Vaginal Delivery [facility]
--- NOTE | 2023-12-08 17:41 | DCINST_ITS ---
Discharge Instructions Diet Discharge Diet: No restrictions Activity Discharge Activity: Return to Normal Activity, May Not Drive (while taking narcotic pain medications.) and May Shower May resume sexual activity in: 4-6 weeks Dressing / Incision Call your doctor if your incision/area has: Continuous Slow Oozing, Sudden Increased Bleeding, Increased Pain/ Swelling, Increased Redness and Foul Smelling Discharge Follow Up Care Please Follow Up With: Lisa Heard MD When: Call [phone] to make an appointment with your doctor in 6 weeks. If you had elevated blood pressure or 4th degree laceration, you will need to be seen in 2 weeks. Test Results: Test results from this visit will be discussed in further detail at your follow- up appointment, if applicable. Discharge Plan Admission Admit Date/Time: 12/08/23 07:15 Attending Provider: Lisa Heard Primary Care Provider: Aster Starr NP Discharge Orders/Prescriptions Prescriptions: No Action vitamin#30 30 mg iron-10 mg iron-folic acid 1 mg-omg3 capsule 30 mg iron-10 mg iron-1 mg capsule 1 cap PO DAILY ondansetron 4 mg tablet,disintegrating 4 mg PO Q8H Qty: 20 0RF Hold Instructions: pt not using] Referrals / Follow Up: Aster Starr NP, [employer] [Primary Care Provider] - Disposition Disposition (needs filled in before D/C Order can be placed): Home, Self Care
[2023-12-08] MEDS: Naproxen 500 MG Tablet PO (22:18)
[2023-12-09] VITALS (8 sets, daily range): BP systolic 108–125; BP diastolic 58–76; PULSE 77–85; RESP 14–16; TEMP 36.6–37.2; O2SAT 96–99
--- NOTE | 2023-12-09 00:03 | NURSING ---
Provider states in patient chart patient cannot maintain immunity, given vaccine in past, states had disease as a child. recommend avoidance. MMR not given
--- NOTE | 2023-12-09 08:20 | PCM.PN.OB ---
Subjective Subjective Patient doing well without complaints. Tolerating PO. Ambulating and voiding without difficulty. Feeding well. Denies chest pain, shortness of breath, calf pain/swelling, fevers, chills, lightheadedness. Objective Data Objective Data Vital Signs: Vital Signs Temp Pulse Resp BP Pulse Ox O2 Del Method 98.5 F 83 16 112/58 L 97 Room Air 12/09/23 04:32 12/09/23 04:32 12/09/23 04:32 12/09/23 04:32 12/09/23 04:32 12/09/23 04:32 Oxygen Delivery Method Room Air Weight: 179 lb 4 oz Body Mass Index (BMI) 28.8 Intake & Output: Intake and Output for Last 24 Hours 12/07/23 12/08/23 12/09/23 23:59 23:59 23:59 Intake Total 1500.00 / 1500.00 Output Total 600 / 600 Balance 900.00 / 900.00 Lab / Micro Data 12/08/23 08:00 Labs: Laboratory Results - last 24 hr 12/08/23 08:00: Syphilis Total Ab Non-reactive, Blood Type B POSITIVE, Antibody Screen NEGATIVE Assessment & Plan (1) Vaginal delivery: COMMENT: ron Madi SM 40 IOL AMA PLAN: s/p PPD # 1 1. routine post delivery care 2. breast feeding- support given 3. rh positive 4. rubella immune 5. considering d/c today.
== END 2023-12-09 17:00 | disposition home or self-care (01) | DRG 806 ==
PROVIDERS: Admitting Provider Obstetrics & Gynecology; PCP Nurse Practitioner Family; Referring Provider Obstetrics & Gynecology; Visit Provider Obstetrics & Gynecology
DX: O48.0 Post-term pregnancy (principal); Z37.0 Single live birth; O99.354 Diseases of the nervous system complicating childbirth; G93.0 Cerebral cysts; O70.0 First degree perineal laceration during delivery; Z83.2 Family history of diseases of the blood and blood-forming organs and certain disorders involving the immune mechanism; Z3A.40 40 weeks gestation of pregnancy
CPT/HCPCS: 59025; 59050; 85025; 86780; 86850; 86900; 86901; 99221; J7120; G0378

== ENCOUNTER → 2025-01-26 | Outpatient (CLI) | payer SELFPAY ==
[2025-01-26 12:14] LABS: Absolute Neutrophil Count 3.3 X10^3/uL (2.0-7.7); Basophil# 0.04 X10^3/uL; Basophil% 0.7 % (0-1); Eosinophil# 0.13 X10^3/uL; Eosinophils% 2.4 % (0-5); Hematocrit 41.1 % (37-47); Hemoglobin 13.6 g/dL (12.0-15.0); Mean Corp Hgb Conc 33.1 g/dL (32-36); Mean Corpuscular Hgb 29.8 pg (27.0-32.0); Mean Corpuscular Volume 90.1 fL (81-99); Mean Platelet Vol. 8.8 fl (6.2-12.0); Monocyte% 7.5 % (0-10); NRBC Flagged by Analyzer 0 % (0-5); Neutrophil # 3.26 X10^3/uL (2.7-7.7); Platelet Count 324 K/mm3 (150-450); RBC Distribution Width CV 12.4 % (11.6-14.6); RBC Distribution Width SD 40.6 fl (35.1-43.9); Red Blood Count 4.56 M/mm3 (4.2-5.4); White Blood Count 5.4 K/mm3 (4.4-11.0)
[2025-01-26 13:05] LABS: Thyroid Stim Hormone (TSH) 0.963 uIU/mL (0.300-4.200)
== END | disposition home or self-care (01) ==
PROVIDERS: PCP Nurse Practitioner Family; Referring Provider Obstetrics & Gynecology; Visit Provider Obstetrics & Gynecology
DX: Z00.00 Encounter for general adult medical examination without abnormal findings (principal); Z13.29 Encounter for screening for other suspected endocrine disorder
CPT/HCPCS: 36415; 84443; 85025

== ENCOUNTER → 2025-06-21 | Outpatient (CLI) | payer SELFPAY ==
--- NOTE | 2025-06-21 10:30 | BI_ITS ---
EXAM: SCRN MAMM (CAD)W/ELGIN BILAT DATE: 06/21/2025 CLINICAL HISTORY: F, Age 40 y/o , SCREENING MAMMOGRAM No family history. TECHNIQUE: Procedure Code: BISMWCADBTOM Modality: MG Procedure: SCRN MAMM (CAD)W/ELGIN BILAT COMPARISON: Baseline examination. FINDINGS: TISSUE DENSITY: The breasts are extremely dense, which lowers the sensitivity of mammography. Bilateral Breast Mammographic Findings: No significant masses, calcifications or other abnormalities are identified. No suspicious masses, areas of developing architectural distortion, or suspicious calcifications. BI/SCRN MAMM (CAD)W/ELGIN BILAT IMPRESSION: Unremarkable bilateral screening mammogram. OVERALL FINAL ASSESSMENT BI-RADS 1: NEGATIVE. RECOMMENDATION: Routine annual follow-up in 1 Year Additional Recommendation none A letter with findings and recommendations will be mailed to the patient. Reading Location: [place] [id number]
--- NOTE | 2025-06-21 10:30 | BI_ITS ---
EXAM: SCRN MAMM (CAD)W/ELGIN BILAT DATE: 06/21/2025 CLINICAL HISTORY: F, Age 40 y/o , SCREENING MAMMOGRAM No family history. TECHNIQUE: Procedure Code: BISMWCADBTOM Modality: MG Procedure: SCRN MAMM (CAD)W/ELGIN BILAT COMPARISON: Baseline examination. FINDINGS: TISSUE DENSITY: The breasts are extremely dense, which lowers the sensitivity of mammography. Bilateral Breast Mammographic Findings: No significant masses, calcifications or other abnormalities are identified. No suspicious masses, areas of developing architectural distortion, or suspicious calcifications. BI/SCRN MAMM (CAD)W/ELGIN BILAT IMPRESSION: Unremarkable bilateral screening mammogram. OVERALL FINAL ASSESSMENT BI-RADS 1: NEGATIVE. RECOMMENDATION: Routine annual follow-up in 1 Year Additional Recommendation none A letter with findings and recommendations will be mailed to the patient. Reading Location: [place] [id number]
--- OUTSIDE RECORDS SUMMARY | 2025-06-21 10:42 | XMS RPT_ITS | CCD ---
Author Organization [facility] Care Team Providers Care Assistant Hvac Mechanic Name Role Phone CAMILO JAMES Unavailable Unavailable CAMILO JAMES Unavailable Unavailable CAMILO JAMES Unavailable Unavailable ASTER FORD Unavailable Unavailable ASTER FORD Unavailable Unavailable [place] MOLDING PROCESS TECHNICIAN, MOLDING PROCESS TECHNICIAN-C Aster Primary Care Provider [place] MOLDING PROCESS TECHNICIAN, MOLDING PROCESS TECHNICIAN-C Aster Referring Provider [phone] ) SANDHYA Macario Attending Provider 1(330) [place] MOLDING PROCESS TECHNICIAN, MOLDING PROCESS TECHNICIAN-C Aster Primary Care Provider [place] MOLDING PROCESS TECHNICIAN, MOLDING PROCESS TECHNICIAN-C Aster Referring Provider 1(330 ) SANDHYA Macario Attending Provider 1(330) SANDHYA Hanson Attending Provider 1(330) Dr. Lissa Wu Attending Provider [phone] [place] MOLDING PROCESS TECHNICIAN, MOLDING PROCESS TECHNICIAN-C Aster Primary Care Provider [phone] [place] MOLDING PROCESS TECHNICIAN, MOLDING PROCESS TECHNICIAN-C Aster Referring Provider 1(330 ) Dr. Lisa Heard Attending Provider 1(330 ) SANDHYA Macario Attending Provider 1(330) Dr. Lissa Wu Attending Provider [phone] Matty MOLDING PROCESS TECHNICIAN, MOLDING PROCESS TECHNICIAN-C Aster Primary Care Provider [phone] [place] MOLDING PROCESS TECHNICIAN, MOLDING PROCESS TECHNICIAN-C Aster Referring Provider 1(330 ) Dr. Lisa Heard Attending Provider 1(330 ) SANDHYA Macario Admit Provider 1(330) SANDHYA Macario Referring Provider 1(330) SANDHYA Macario Other Provider 1(330) Dr. Lisa Heard Admit Provider [phone] Dr. Lisa Heard Referring Provider [phone] Dr. Lisa Heard Other Provider [phone] SANDHYA Hanson Attending Provider [phone] Matty MOLDING PROCESS TECHNICIAN-C, [place] Primary Care Provider [phone] Matty MOLDING PROCESS TECHNICIAN-C, Aster Referring Provider [phone] Félix SERVIN, Dr. Gonzalez Attending Provider Dr. Lisa Heard MD Referring Provider [phone] Lisa Heard Attending Unavailable Matty MOLDING PROCESS TECHNICIAN, [place] Primary Care Unavailable Matty MOLDING PROCESS TECHNICIAN, Aster Referring Unavailable Lisa Heard Attending Unavailable Lisa Heard Referring Unavailable Matty MOLDING PROCESS TECHNICIAN, [place] Primary Care Unavailable Lisa Heard Attending Unavailable Lisa Heard Referring Unavailable Matty MOLDING PROCESS TECHNICIAN, [facility] Care Unavailable Medications Current Medications Medication Drug Class(es) Dates Sig (Normalized) Sig (Original) citalopram 20 mg oral tablet (2 sources) Serotonin Reuptake Inhibitor Start: 01-26-2025 take 1 tablet by mouth once daily Citalopram 20 mg tablet Active 20 mg PO DAILY January 26, 2025 12:00am Pnv #[id number] Acid-Omega3 30 mg iron-10 mg iron-1 mg capsule (2 sources) Start: 03-02-2019 Pnv #[id number] Acid-Omega3 30 mg iron-10 mg iron-1 mg capsule Active 1 NMA PO DAILY March 02, 2019 12:00am vitamin#30 30 mg iron-10 mg iron-folic acid 1 mg-omg3 capsule (6 sources) Start: 03-02-2019 take 1 capsule by mouth once daily vitamin#30 30 mg iron-10 mg iron-folic acid 1 mg-omg3 capsule Active 1 CAP PO DAILY March 01, 2019 11:00pm Start: 03-02-2019 take 1 capsule by [facility] once daily vitamin#30 30 mg iron-10 mg iron-folic acid 1 mg-omg3 capsule Active 1 CAP PO DAILY March 02, 2019 12:00am Completed/Discontinued Medications Medication Drug Class(es) Dates Sig (Normalized) Sig (Original) cephalexin 500 mg oral capsule (8 sources) Cephalosporin Antibacterial Start: 04-19-2020 End: 05-03-2020 take 1 capsule by mouth three times daily Cephalexin (Keflex) 500 mg capsule Discontinued 500 mg PO THREE TIMES A DAY April 19, 2020 12:00am May 02, 2020 12:00am May 03, 2020 12:02am space evenly during waking hours Norgestimate-Ethi nyl Estradiol (8 sources) Progestin, Estrogen Start: 04-03-2022 End: 05-14-2023 Norgestimate-Ethin yl Estradiol (Sprintec (28)) 0.25-35 mg-mcg tablet Discontinued 1 {tbl} PO DAILY April 03, 2022 12:00am May 14, 2023 1:28pm Start: 04-03-2022 End: 05-14-2023 take 1 tablet by mouth once daily Norgestimate-Ethinyl Estradiol (Sprintec (28)) 0.25-35 mg-mcg tablet Discontinued 1 TABLET PO DAILY April 02, 2022 11:00pm May 14, 2023 12:28pm Start: 04-03-2022 End: 05-14-2023 take 1 tablet by mouth once daily Norgestimate-Ethinyl Estradiol (Sprintec (28)) 0.25-35 mg-mcg tablet Discontinued 1 TABLET PO DAILY April 03, 2022 12:00am May 14, 2023 1:28pm naproxen 250 mg oral tablet (8 sources) Nonsteroidal Anti-inflammatory Drug Start: 09-25-2020 End: 11-08-2020 take 250-500 mg by mouth every eight hours as needed for pain Naproxen 250 MG tablet Discontinued 250 - 500 mg PO EVERY 8 HOURS NEEDED as needed for MILD PAIN September 25, 2020 1:00am November 08, 2020 3:28pm norethindrone 0.35 mg oral tablet (20 sources) Start: 11-08-2020 End: 05-14-2023 take 1 tablet by mouth once daily Norethindrone (Contraceptive) (Ortho Micronor) 0.35 mg tablet Discontinued 0.35 mg PO DAILY December 24, 2021 5:45am May 14, 2023 1:28pm start day 1 of menstrual cycle ondansetron 4 mg disintegrating oral tablet (14 sources) Serotonin-3 Receptor Antagonist Start: 04-24-2023 End: 01-26-2024 take 1 tablet by mouth every eight hours Ondansetron 4 mg tablet,disintegra ting Discontinued 4 mg PO Q8H June 11, 2023 11:05am January 26, 2024 10:06am On Hold: pt not using] Problems Active Problems Problem Classification Problem Date Documented Date Episodic/Chronic Other complications of (8 sources) Rubella non-immune; Translations: [Supervision of other high risk pregnancies, unspecified trimester] 02-23-2020 Episodic Comment on above: can't maintain immun ity, given vaccine in past, states had disease as a child. recommend avoidance Other complications of (8 sources) Multigravida of advanced maternal age; Translations: [Supervision of elderly multigravida, unspecified trimester] 05-14-2023 Episodic Comment on above: genetic counseling p rovided and will consider, growth US at 36 weeks. (68%) Other complications of (8 sources) High risk ; Translations: [Supervision of high risk , unspecified, unspecified trimester] 05-14-2023 Episodic Comment on above: PRR KASHIF 12/18/19 24 boy PC: Israel Florentino Spouse: Arvind Other complications of (8 sources) Varicella non-immune; Translations: [Supervision of other high risk pregnancies, unspecified trimester] 02-22-2020 Episodic Comment on above: had disease as a chi ld, negative immunity, discussed avoidance Other complications of (8 sources) Group B Streptococcus carrier; Translations: [Streptococcus B carrier state complicating ] 09-25-2020 Episodic Comment on above: GBS positive plan pc n Other complications of (20 sources) Supervision of elderly multigravida, unspecified trimester; Translations: [Elderly multigravida, unspecified as to episode of care or not applicable] 05-14-2023 Episodic Other complications of (20 sources) Supervision of other high risk pregnancies, unspecified trimester; Translations: [Other specified complications of , antepartum condition or complication] 05-14-2023 Episodic Other complications of (20 sources) Supervision of high risk , unspecified, unspecified trimester; Translations: [Supervision of unspecified high-risk ] 05-14-2023 Episodic Other nervous system disorders (5 sources) Choroid plexus cyst; Translations: [Cerebral cysts] 08-06-2023 Chronic Comment on above: offered NIPT, patien t declined. Other nervous system disorders (20 sources) Cerebral cysts; Translations: [Cerebral cysts] 08-06-2023 Chronic Other and delivery including normal (20 sources) Normal ; Translations: [Encounter for supervision of normal , unspecified, unspecified trimester] 02-22-2020 Episodic Comment on above: boy Madi SM 40 IOL AMA PRR KASHIF 04/09/19 Arvind carrier screening ne gative, normal anatomy, reviewed [facility] records declines carrier, nt d, and genetic screening. Anatomy US normal GBS neg, Discussed N IPT, afp and carrier screening declined. anatomy reveiwed. Residual codes; unclassified (8 sources) Gestation period, 37 weeks; Translations: [37 weeks gestation of ] 09-25-2020 Episodic Comment on above: electronic test orde red 09/04/20 (scheduled 09/20/20 @ 9:40) Residual codes; unclassified (6 sources) FH: Hemophilia; Translations: [Family history of diseases of the blood and blood-forming organs and certain disorders involving the immune mechanism] 07-08-2023 Episodic Comment on above: update [facility] father in law has it, FOB not affected Residual codes; unclassified (20 sources) Family history of diseases of the blood and blood-forming organs and certain disorders involving the immune mechanism; Translations: [Family history of other blood disorders] 08-06-2023 Episodic Skin and subcutaneous tissue infections (8 sources) Cellulitis; Translations: [Cellulitis, unspecified] 09-25-2020 Episodic Comment on above: keflex 14 days. Unclassified (5 sources) Encounter for screening for malignant neoplasm of cervix; Translations: [Encounter for screening mammogram for malignant neoplasm of breast] Onset: 11-11-2017 Episodic Past or Other Problems Problem Classification Problem Date Documented Da te Episodic/Chronic Contraceptive and procreative management (2 sources) Encounter for other general counseling and advice on procreation; Translations: [Encounter for other general counseling and advice on procreation] Onset: 11-11-2017 Episodic Unclassified (12 sources) Normal labor; Translations: [Active labor at term] 09-25-2020 Unclassified (8 sources) Normal glucose level; Translations: [Normal glucose level] 07-13-2020 Results Test Name Value Interpretation Reference Range Facility Absolute lymphocyte countOrd ered By: Lisa Heard on 01-26-2025 Lymphocytes Auto (Unsp spec) [#/Vol] 1.50 10*3/uL 0.83-4.51 [facility] Absolute neutrophil countOrd ered By: Lisa Heard on 01-26-2025 Neutrophils (Bld) [#/Vol] 3.3 10*3/uL 2.0-7.7 [facility] Automated lymphocyte count a s percentage of total leukocytesOrdered By: Lisa Heard on 01-26-2025 Lymphocytes/100 WBC Auto (Unsp spec) 28.0 % 19-41 [facility] Basophil percentageOrdered B y: Lisa Heard on 01-26-2025 Basophils/100 WBC (Bld) 0.7 % 0-1 [facility] CBC W/Diff, Automatedon 12-30 Absolute Lymph 1.50 X10 3/uL Normal 0.83-4.51 [facility] Comment on above: Performed By: #### L [id number], L100.0100 #### [facility] [address] [place], [address] Absolute Neut 3.3 X10 3/uL Normal 2.0-7.7 [facility] Comment on above: Performed By: #### L [id number], [id number] #### [facility] [address] [facility] [place], [address] Basophils/100 WBC (Bld) 0.7 % Normal 0-1 [facility] Comment on above: Performed By: #### L [id number], [id number] #### [facility] [address] [facility] [place], [address] Eosinophils/100 WBC (Bld) 2.4 % Normal 0-5 [facility] Comment on above: Performed By: #### L [id number], [id number] #### [facility] [address] [place], [address] Erythrocyte distribution width (RBC) [Ratio] 12.4 % Normal 11.6-14.6 [facility] Comment on above: Performed By: #### L [id number], [id number] #### [facility] [address] [place], [address] Hematocrit (Bld) [Volume fraction] 41.1 % Normal 37-47 [facility] Comment on above: Performed By: #### L [id number], [id number] #### [facility] [address] [place], [address] Hemoglobin (Bld) [Mass/Vol] 13.6 g/dL Normal 12.0-15.0 [facility] Comment on above: Performed By: #### L [id number], L100.0100 #### [facility] [address] [place], [address] IG% 0.400 Normal 0.0-0.9 [facility] Comment on above: Result Comment: IG% - Immature Granulocytes (promyelocytes, myelocytes and metamyelocytes) > 1% indicates that a LEFT SHIFT is Present. Performed By: #### L [id number], L100.0100 #### [facility] [address] [place], [address] Lymphocytes/100 WBC (Bld) 28.0 % Normal 19-41 [facility] Comment on above: Performed By: #### L [id number], L100.0100 #### [facility] [address] [place], [address] MCH (RBC) [Entitic mass] 29.8 pg Normal 27.0-32.0 [facility] Comment on above: Performed By: #### L [id number], [id number] #### [facility] [address] [place], [address] MCHC (RBC) [Mass/Vol] 33.1 g/dL Normal 32-36 [facility] Comment on above: Performed By: #### L [id number], L100.0100 #### [facility] [address] [place], [address] MCV (RBC) [Entitic vol] 90.1 fL Normal 81-99 [facility] Comment on above: Performed By: #### L [id number], [id number] #### [facility] [address] [place], [address] Monocytes/100 WBC (Bld) 7.5 % Normal 0-10 [facility] Comment on above: Performed By: #### L 501.95, L100.0100 #### [facility] [address] [place], [address] Neutrophils/100 WBC (Bld) 61.0 % Normal 47-70 [facility] Comment on above: Performed By: #### L [id number], [id number] #### [facility] [address] [place], [address] Nucleated RBC (Bld) [#/Vol] 0 10*3/uL Normal 0-5 [facility] Comment on above: Performed By: #### L [id number], [id number] #### [facility] [address] [place], [address] Platelet mean volume (Bld) [Entitic vol] 8.8 fL Normal 6.2-12.0 [facility] Comment on above: Performed By: #### L [id number], L100.0100 #### [facility] [address] [place], [address] Platelets (Bld) [#/Vol] 324 10*3/uL Normal 150-450 [facility] Comment on above: Performed By: #### L [id number], [id number] #### [facility] [address] [place], [address] RBC (Bld) [#/Vol] 4.56 10*6/uL Normal 4.2-5.4 [facility] Comment on above: Performed By: #### L [id number], [id number] #### [facility] [address] [place], [address] RDW SD 40.6 fl Normal 35.1-43.9 [facility] Comment on above: Performed By: #### L [id number], [id number] #### [facility] [address] [place], [address] WBC (Bld) [#/Vol] 5.4 10*3/uL Normal 4.4-11.0 [facility] Comment on above: Performed By: #### L [id number], [id number] #### [facility] [address] [place], [address] Eosinophil percentageOrdered By: Lisa Heard on 01-26-2025 Eosinophils/100 WBC (Bld) 2.4 % 0-5 [facility] Erythrocyte distribution wid th ratioOrdered By: Lisa Heard on 01-26-2025 Erythrocyte distribution width (RBC) [Ratio] 12.4 % 11.6-14.6 [facility] Erythrocyte distribution wid th standard deviationOrdered By: Lisa Heard on 01-26-2025 Erythrocyte distribution width (RBC) [Ratio] 40.6 fl 35.1-43.9 [facility] Hematocrit Auto (Bld) [Volum e fraction]Ordered By: Lisa Heard on 01-26-2025 Hematocrit (Bld) [Volume fraction] 41.1 % 37-47 [facility] Hemoglobin measurementOrdere d By: Lisa Heard on 01-26-2025 Hemoglobin (Bld) [Mass/Vol] 13.6 g/dL 12.0-15.0 [facility] Immature granulocytes/100 WB C Auto (Bld)Ordered By: Lisa Heard on 01-26-2025 Immature granulocytes/100 WBC (Bld) 0.400 % 0.0-0.9 [facility] Comment on above: IG% - Immature Granu locytes (promyelocytes, myelocytes and metamyelocytes) > 1% indicates that a LEFT SHIFT is Present. MCV (mean corpuscular volume ) determinationOrdered By: Lisa Heard on 01-26-2025 MCV (RBC) [Entitic vol] 90.1 fL 81-99 [facility] Mean corpuscular hemoglobin (MCH) determinationOrdered By: Lisa Heard on 01-26-2025 MCH (RBC) [Entitic mass] 29.8 pg 27.0-32.0 [facility] Mean corpuscular hemoglobin concentration (MCHC) determinationOrdered By: Lisa Heard on 01-26-2025 MCHC (RBC) [Mass/Vol] 33.1 g/dL 32-36 [facility] Mean platelet volume determi nationOrdered By: Lisa Heard on 01-26-2025 Platelet mean volume (Bld) [Entitic vol] 8.8 fL 6.2-12.0 [facility] Monocyte percentageOrdered B y: Lisa Heard on 01-26-2025 Monocytes/100 WBC (Bld) 7.5 % 0-10 [facility] Neutrophil percentageOrdered By: Lisa Heard on 01-26-2025 Neutrophils/100 WBC (Bld) 61.0 % 47-70 [facility] Nucleated red blood cell per centageOrdered By: Lisa Heard on 01-26-2025 Nucleated RBC/100 WBC (Bld) [Ratio] 0 % 0-5 [facility] Senior Litigation Paralegal Office Visit Reporton 01-26-2025 Senior Litigation Paralegal Office Visit Report [facility]'[address], [address] [place] [address] OFFICE VISIT Date of Service: 01/26/25 MR#: [id number] Acct: [id number] Name: ALEJANDRA RUSH Rep #: [id number] : 1985 Provider: Dr. 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 Nurse Required: No Is patient in pain?: Yes (left leg aching during the night) Allergies No Known Allergies Allergy (Verified 01/26/25 11:15) Medications ???Medication ???Instructions ???Recorded ???Confirmed ???Type vitamin#30 30 mg iron-10 1 cap PO DAILY 03/02/19 01/26/25 History mg iron-folic acid 1 mg-omg3 capsule citalopram 20 mg tablet 20 mg PO DAILY #30 tabs 01/26/25 0 01/26/25 Rx Is last menstrual period known: Yes Last Menstrual Period: 01/23/25 Post menopausal: No Patient : No : No PFSH Medical History Vaginal delivery Choroid plexus cyst Infertility Surgical History History of hysteroscopy H/O wisdom tooth extraction Family History Father Anxiety Social History adopted: No household members: spouse housing: house number of children: 3 pets and animals: No history of recent travel: Yes sexually active: Yes Smoking Status: Never smoker second hand exposure: No alcohol intake: never substance use type: does not use caffeine: No lorenzo/catholic: Mennonite seatbelt use: always do you feel safe at home: Yes additional social history: Arvind- works at a [employer] History 3 Elective abortions Hx Para 3 Spontaneous abortions Hx # Term Pregnancies Ectopic pregnancies Hx # Pregnancies Multiple births # of living children 3 Past Pregnancies Del. Date Name GA/Weeks Outcome Route Bth Weight Gen Labor Lgth Anesthesia Del Locatn Provider FOB 04/04/19 Beau 39 live - full term 7lbs Male [facility] AMBAR 09/25/20 Israel 39 live - full term Male [facility] Uriel nya 12/08/23 Madi 40 live - full term 8#4 Male [facility] Uriel fay Delivery Date: 04/04/19 Last Updated by: Digna Sampson 2 degree laceration Delivery Date: 09/25/20 Last Updated by: Maria E HOWARD Delivery Date: 12/08/23 Last Updated by: Maria E GREEN AMSamina HPI Encounter for routine gynecological examination Details: ALEJANDRA RUSH is a 39 year old who presents for 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 she is feeling fatigued, her son is waking her up at night and this may be contributing Last PAP: 05/14/2023 - normal History of abnormal PAP: Last mammogram: due this year - order placed History of abnormal mammogram: Colon cancer screening: not due Other preventative health care screenings: PCP [facility] [place] Female Reproductive History Last Menstrual Period: 01/23/25 Cycle Length: 21-35 Bleeding Duration: 5 Questions: metorrhagia: No, sexually active: Yes, dyspareunia: No and PCB: No Menopausal Symptoms: No hot flashes, No night sweats, No weight change, No mood changes, No difficulty concentrating, No sleep problems and No change in libido ROS Const Constitutional: Reports as per HPI, fatigue and increased appetite; Denies poor appetite, night sweats, weight gain or weight loss Cardio Card: Denies chest pain Resp Resp: Denies cough or dyspnea GI GI: Reports as per HPI; Denies abdominal pain, bloating, constipation, nausea or vomiting : Reports as per HPI, nipple discharge (breast feeding) and other; Denies difficulty voiding, dysuria, hematuria, hot flashes, pelvic pain, prolapse symptoms, urinary frequency, urinary incontinence, urinary urgency, vaginal discharge, vaginal dryness, vaginal odor or vaginal pruritus Skin Skin/Breast: Reports nipple discharge (breast feeding); Denies changing lesions, breast mass, breast pain or breast skin changes Psych Psych: Reports depression; Denies anxiety, change in libido or difficulty concentrating Exam Const General: cooperative, healthy appearing, comfortable, no acute distress, well developed and well groomed [facility] Head: normal to inspection and normocephalic Ears: hearing grossly normal bilaterally and external ears normal Nose: external nose normal Face and sinus: normal facial exam Neck Neck: normal visual inspection, full ROM and no lymphadenopathy Thyroid: thyroid normal Chest Chest palpation inspection: normal inspecti (more content not included)... Normal [facility] Platelet countOrdered By: Vivi Heard on 01-26-2025 Platelets (Bld) [#/Vol] 324 10*3/uL 150-450 [facility] RBC Auto (Bld) [#/Vol]Ordere d By: Lisa Heard on 01-26-2025 RBC (Bld) [#/Vol] 4.56 10*6/uL 4.2-5.4 [facility] TSH DL <= 0.005 mIU/L QnOrde red By: Lisa Heard on 01-26-2025 TSH Qn 0.963 uIU/mL 0.300-4.200 [facility] Thyroid Stim Hormone (TSH)on 01-26-2025 TSH 0.963 uIU/mL Normal 0.300-4.200 [facility] Comment on above: Performed By: #### L [id number], L100.0100 #### [facility] [address] [place], [place], [id number] White blood cell (WBC) count Ordered By: Lisa Heard on 01-26-2025 WBC (Bld) [#/Vol] 5.4 10*3/uL 4.4-11.0 [facility] Absolute lymphocyte countOrd ered By: Lisa Heard on 12-08-2023 Lymphocytes Auto (Unsp spec) [#/Vol] 1.70 10*3/uL 0.83-4.51 [facility] Automated lymphocyte count a s percentage of total leukocytesOrdered By: Lisa Heard on 12-08-2023 Lymphocytes/100 WBC Auto (Unsp spec) 17.9 % 19-41 [facility] Basophil percentageOrdered B y: Lisa Heard on 12-08-2023 Basophils/100 WBC (Bld) 0.3 % 0-1 [facility] Eosinophils/100 WBC (Bld) 1.9 % 0-5 [facility] Hemoglobin (Bld) [Mass/Vol] 11.7 g/dL 12.0-15.0 [facility] Monocytes/100 WBC (Bld) 6.3 % 0-10 [facility] Neutrophils (Bld) [#/Vol] 6.9 10*3/uL 2.0-7.7 [facility] Neutrophils/100 WBC (Bld) 73.1 % 47-70 [facility] WBC (Bld) [#/Vol] 9.5 10*3/uL 4.4-11.0 [facility] Determination of erythrocyte mean corpuscular volume (MCV)Ordered By: Lisa Heard on 12-08-2023 MCV (RBC) [Entitic vol] 89.9 fL 81-99 [facility] Erythrocyte distribution wid th ratioOrdered By: Lisa Heard on 12-08-2023 Erythrocyte distribution width (RBC) [Ratio] 13.3 % 11.6-14.6 [facility] Erythrocyte distribution wid th standard deviationOrdered By: Lisa Heard on 12-08-2023 Erythrocyte distribution width (RBC) [Entitic vol] 43.8 fL 35.1-43.9 [facility] Hematocrit Auto (Bld) [Volum e fraction]Ordered By: Lisa Heard on 12-08-2023 Hematocrit (Bld) [Volume fraction] 35.5 % 37-47 [facility] Immature granulocytes/100 WB C Auto (Bld)Ordered By: Lisa Heard on 12-08-2023 Immature granulocytes/100 WBC (Bld) 0.500 % 0.0-0.9 [facility] Comment on above: IG% - Immature Granu locytes (promyelocytes, myelocytes and metamyelocytes) > 1% indicates that a LEFT SHIFT is Present. Laboratory - Hematology and Cell countsOrdered By: Lisa Heard on 12-08-2023 MCH (RBC) [Entitic mass] 29.6 pg 27.0-32.0 [facility] MCHC (RBC) [Mass/Vol] 33.0 g/dL 32-36 [facility] Nucleated RBC/100 WBC (Bld) [Ratio] 0 % 0-5 [facility] Platelet mean volume (Bld) [Entitic vol] 9.3 fL 6.2-12.0 [facility] Platelets (Bld) [#/Vol] 286 10*3/uL 150-450 [facility] RBC Auto (Bld) [#/Vol]Ordere d By: Lisa Heard on 12-08-2023 RBC (Bld) [#/Vol] 3.95 10*6/uL 4.2-5.4 [facility] Serum Treponema species anti body detectionOrdered By: Lisa Heard on 12-08-2023 Treponema sp Ab Ql (S) Non-Reactive [facility] Laboratory - Chemistry and C hemistry - challengeon 11-24-2023 Glucose Ql (U) Negative [facility] Laboratory - Urinalysison Protein Ql (U) Negative [facility] No Panel InformationOrdered By: Erica Macario on 11-17-2023 Group B Streptococcus Culture Group B Beta Streptococcus is not isolated. [facility] Laboratory - Chemistry and C hemistry - challengeon 11-05-2023 Glucose Ql (U) Negative [facility] Laboratory - Urinalysison Protein Ql (U) Negative [facility] Laboratory - Chemistry and C hemistry - challengeon 10-21-2023 Glucose Ql (U) Negative [facility] Laboratory - Urinalysison Protein Ql (U) Negative [facility] Laboratory - Chemistry and C hemistry - challengeon 10-05-2023 Glucose Ql (U) Negative [facility] Laboratory - Urinalysison Protein Ql (U) Negative [facility] Absolute lymphocyte countOrd ered By: Lisa Heard on 09-11-2023 Lymphocytes Auto (Unsp spec) [#/Vol] 1.83 10*3/uL 0.83-4.51 [facility] Basophil percentageOrdered B y: Lisa Heard on 09-11-2023 Basophils/100 WBC (Bld) 0.2 % 0-1 [facility] Eosinophils/100 WBC (Bld) 1.3 % 0-5 [facility] Neutrophils (Bld) [#/Vol] 7.4 10*3/uL 2.0-7.7 [facility] Neutrophils/100 WBC (Bld) 74.9 % 47-70 [facility] WBC (Bld) [#/Vol] 9.9 10*3/uL 4.4-11.0 [facility] Blood erythrocytes count (nu mber/volume)Ordered By: Lisa Heard on 09-11-2023 RBC (Bld) [#/Vol] 3.77 10*6/uL 4.2-5.4 [facility] Blood hemoglobin measurement (mass/volume)Ordered By: Lisa Heard on 09-11-2023 Hemoglobin (Bld) [Mass/Vol] 11.6 g/dL 12.0-15.0 [facility] Blood lymphocytes/100 leukoc ytesOrdered By: Lisa Heard on 09-11-2023 Lymphocytes/100 WBC (Bld) 18.5 % 19-41 [facility] Blood monocytes/100 leukocyt esOrdered By: Lisa Heard on 09-11-2023 Monocytes/100 WBC (Bld) 4.8 % 0-10 [facility] Blood platelet mean volumeOr dered By: Lisa Heard on 09-11-2023 Platelet mean volume (Bld) [Entitic vol] 8.8 fL 6.2-12.0 [facility] Determination of erythrocyte mean corpuscular volume (MCV)Ordered By: Lisa Heard on 09-11-2023 MCV (RBC) [Entitic vol] 91.5 fL 81-99 [facility] Gestational diabetes screen 1-hour screen with 50g oral glucose loadOrdered By: Lisa Heard on 09-11-2023 Glucose 1 Hr post 50 g glucose PO [Mass/Vol] 129 mg/dL 70-140 [facility] HIV 1 and HIV-2 antibody ass ay with HIV-1 p24 antigen detectionOrdered By: Lisa Heard on 09-11-2023 HIV 1+2 Ab+HIV1 p24 Ag IA Ql Non-Reactive Nonreactive [facility] Hematocrit Auto (Bld) [Volum e fraction]Ordered By: Lisa Heard on 09-11-2023 Hematocrit (Bld) [Volume fraction] 34.5 % 37-47 [facility] Laboratory - Chemistry and C hemistry - challengeon 09-11-2023 Glucose Ql (U) Negative [facility] Laboratory - Hematology and Cell countsOrdered By: Lisa Heard on 09-11-2023 Erythrocyte distribution width (RBC) [Entitic vol] 44.0 fL 35.1-43.9 [facility] Erythrocyte distribution width (RBC) [Ratio] 13.3 % 11.6-14.6 [facility] Immature granulocytes/100 WBC (Bld) 0.300 % 0.0-0.9 [facility] Comment on above: IG% - Immature Granu locytes (promyelocytes, myelocytes and metamyelocytes) > 1% indicates that a LEFT SHIFT is Present. MCH (RBC) [Entitic mass] 30.8 pg 27.0-32.0 [facility] Nucleated RBC/100 WBC (Bld) [Ratio] 0 % 0-5 [facility] Laboratory - Urinalysison Protein Ql (U) Negative [facility] MCHC Auto (RBC) [Mass/Vol]Or dered By: Lisa Heard on 09-11-2023 MCHC (RBC) [Mass/Vol] 33.6 g/dL 32-36 [facility] Platelets bldOrdered By: Savage Heard on 09-11-2023 Platelets (Bld) [#/Vol] 294 10*3/uL 150-450 [facility] Serum Treponema species anti body detectionOrdered By: Lisa Heard on 09-11-2023 Treponema sp Ab Ql (S) Non-Reactive [facility] Laboratory - Chemistry and C hemistry - challengeon 07-08-2023 Glucose Ql (U) Negative [facility] Laboratory - Urinalysison Protein Ql (U) Negative [facility] Laboratory - Chemistry and C hemistry - challengeon 06-11-2023 Glucose Ql (U) Negative [facility] Laboratory - Urinalysison Protein Ql (U) Trace [facility] Absolute lymphocyte countOrd ered By: Erica Macario on 05-14-2023 Lymphocytes Auto (Unsp spec) [#/Vol] 2.15 10*3/uL 0.83-4.51 [facility] Basophil percentageOrdered B y: Erica Macario on 05-14-2023 Basophils/100 WBC (Bld) 0.4 % 0-1 [facility] Eosinophils/100 WBC (Bld) 2.7 % 0-5 [facility] Neutrophils (Bld) [#/Vol] 6.8 10*3/uL 2.0-7.7 [facility] Neutrophils/100 WBC (Bld) 68.5 % 47-70 [facility] WBC (Bld) [#/Vol] 9.9 10*3/uL 4.4-11.0 [facility] Blood erythrocytes count (nu mber/volume)Ordered By: Erica Macario on 05-14-2023 RBC (Bld) [#/Vol] 4.35 10*6/uL 4.2-5.4 [facility] Blood hemoglobin measurement (mass/volume)Ordered By: Erica Macario on 05-14-2023 Hemoglobin (Bld) [Mass/Vol] 12.8 g/dL 12.0-15.0 [facility] Blood lymphocytes/100 leukoc ytesOrdered By: Erica Macario on 05-14-2023 Lymphocytes/100 WBC (Bld) 21.6 % 19-41 [facility] Blood monocytes/100 leukocyt esOrdered By: Erica Macario on 05-14-2023 Monocytes/100 WBC (Bld) 6.6 % 0-10 [facility] Blood platelet mean volumeOr dered By: Erica Macario on 05-14-2023 Platelet mean volume (Bld) [Entitic vol] 8.7 fL 6.2-12.0 [facility] Cervical or vagninal specime n microscopic examination by cytology stain (reported asOrdered By: Erica Macario on 05-14-2023 Cytology report Cyto stain Doc (Cvx/Vag) Comment . [facility] Comment on above: The Pap smear is a s creening test designed to aid in thedetection of premalignant and malignant conditions of theuterine cervix. It is not a diagnostic procedure andshould not be used as the sole means of detecting cervicalcancer. Both false-positive and false-negative reports dooccur. Chlamydia trachomatis rRNA d etection by probe and target amplification methodOrdered By: Erica Macario on 09-14-2023 C. trachomatis rRNA ANDREA+probe Ql (Unsp spec) Negative Negative [facility] Culture, urineOrdered By: Trell Macario on 05-14-2023 Bacteria identified Cx Nom (U) Mixed Gram Pos & Gram Neg Org [facility] Bacteria identified Cx Nom (U) Mixed Gram Pos & Gram Neg Org [facility] Detection in cervical specim en of any of human papilloma virus (HPV) 16, 18, 31, 33,Ordered By: Erica Macario on 05-14-2023 HPV 16+18+31+33+35+39+45+51+5 2+56+58+59+66+68 DNA Probe+sig amp Ql (Cvx) Negative Negative [facility] Comment on above: This nucleic acid am plification test detects fourteen high-risk HPV types (16,18,31,33,35,39,45,51,52,56,58,59,66,68)without differentiation. Determination of erythrocyte mean corpuscular volume (MCV)Ordered By: Erica Macario on 05-14-2023 MCV (RBC) [Entitic vol] 90.1 fL 81-99 [facility] HIV 1 and HIV-2 antibody ass ay with HIV-1 p24 antigen detectionOrdered By: Erica Macario on 05-14-2023 HIV 1+2 Ab+HIV1 p24 Ag IA Ql Non-Reactive Nonreactive [facility] Hematocrit Auto (Bld) [Volum e fraction]Ordered By: Erica Macario on 05-14-2023 Hematocrit (Bld) [Volume fraction] 39.2 % 37-47 [facility] Laboratory - CytologyOrdered By: Erica Macario on 05-14-2023 Clearance Cutter Cyto stain Nom (Cvx/Vag) [ID] Comment . [facility] Comment on above: Bret Alfaro totechnologist (ASCP) Laboratory - Hematology and Cell countsOrdered By: Erica Macario on 05-14-2023 Erythrocyte distribution width (RBC) [Entitic vol] 39.5 fL 35.1-43.9 [facility] Erythrocyte distribution width (RBC) [Ratio] 12.0 % 11.6-14.6 [facility] Immature granulocytes/100 WBC (Bld) 0.200 % 0.0-0.9 [facility] Comment on above: IG% - Immature Granu locytes (promyelocytes, myelocytes and metamyelocytes) > 1% indicates that a LEFT SHIFT is Present. MCH (RBC) [Entitic mass] 29.4 pg 27.0-32.0 [facility] Nucleated RBC/100 WBC (Bld) [Ratio] 0 % 0-5 [facility] Laboratory - Microbiology an d Antimicrobial susceptibilityOrdered By: Erica Macario on 05-14-2023 N. gonorrhoeae DNA ANDREA+probe Ql (Unsp spec) Negative Negative [facility] Comment on above: Performed at: =G - [facility] [address] [id number] Director: Latricia Hayes MD, Phone: [phone] Laboratory - Miscellaneous t estsOrdered By: Erica Macario on 05-14-2023 Service comment (Unsp spec) [Interp] Comment . [facility] Comment on above: This liquid based Th inPrep(R) pap test was screened withthe use of an image guided system. Service comment (Unsp spec) [Interp] . . [facility] Liquid-based cerv Pap + CT/G C by ANDREA w reflex to high-risk HPV for ASCUSOrdered By: Erica Macario on 05-14-2023 Cytology report Cyto stain.thin prep Doc (Cvx/Vag) Comment . [facility] Comment on above: Criteria not met, HP V Genotype not performed.Performed at: - [facility] [address] [id number] Director: Latricia Hayes MD, Phone: [phone] at: =G - [facility] [address] [id number] Director: Latricia Hayes MD, Phone: [phone] MCHC Auto (RBC) [Mass/Vol]Or dered By: Erica Macario on 05-14-2023 MCHC (RBC) [Mass/Vol] 32.7 g/dL 32-36 [facility] No Panel InformationOrdered By: Erica Macario on 05-14-2023 Pathology report final diagnosis Narrative Comment . [facility] Comment on above: NEGATIVE FOR INTRAEP ITHELIAL LESION OR MALIGNANCY. Hepatitis B Surface Antigen Non-Reactive Nonreactive [facility] Hepatitis C Antibody Non-Reactive Nonreactive [facility] Comment on above: Non Reactive: < 0.8 Equivocal: >/= 0.8 to < 1.0 Reactive: >/= 1.0The CDC recommends that a reactive/equivocal HCV antibody result be followed up by the HCV Nucleic Acid Amplificationtest (080576) Rubella IgG Antibody Equiv Nonreactive [facility] Comment on above: Antibody Results Int erpretation of Immune Status Non Reactive Presumed Non-Immune Equivocal Equivocal Reactive Presumed Immune Platelets bldOrdered By: Bob Macario on 05-14-2023 Platelets (Bld) [#/Vol] 362 10*3/uL 150-450 [facility] Serum Treponema species anti body detectionOrdered By: Erica Macario on 05-14-2023 Treponema sp Ab Ql (S) Non-Reactive [facility] XR Injection Hysterosalpingo graphyon 02-02-2018 XR Injection Hysterosalpingography Fluoro Time Indication: Infertility 0.6 minutes of fluoro was provided to Dr. James. Read by: Approved by: ZULEYKA SCHMITZ MD Date: 02/02/2018 10:[address] [facility] HPVon 11-18-2017 HPV Interp Normal See Interp HPVN [facility] ([place]) Comment on above: Order Comment: Order placed by AP_HPV_ORDER rule from [id number] Result Comment: High Risk HPV Typing: NEGATIVEHPV types 16, 18, 31, 33, 35, 39, 45, 51, 52, 56, 58, 59, 66 and 68 DNA were undetectable or below the pre-set threshold.The toma High-Risk HPV DNA Test is not intended for use as a screening device for Pap normal women under age 30 and is not intended to substitute for regular Pap screening.The toma High-Risk HPV DNA Test is designed to augment existing methods for the detection of cervical disease and should be used in conjunction with clinical information derived from other diagnostic and screening tests, physical examinations and full medical history in accordance with appropriate patient management procedures.NOTE: A negative result does not preclude the presence of HPV infection because results depend on adequate specimen collection, absence of inhibitors and sufficient DNA to be detected.See Interp HPVN Performed By: #### H PV ####[place] [address] HPV Source Cervix Normal [facility] ([place]) Comment on above: Order Comment: Order placed by AP_HPV_ORDER rule from [id number] Performed By: #### H PV ####[place] [address] Policy Writer Typist Cytology Reporton 2017 Policy Writer Typist Cytology Report . Pathology ReportsAccession: Collected Date/Time: Received Date/Time: Pathologist:[id number] 11/11/2017 15:30 EDT 11/11/2017 18:00 EDT Policy Writer Typist Cytology ReportSPECIMEN:Specime n Description: Liquid Prep w/ HPVSpecimen: Cervical/EndocervicalS creening or Diagnostic: ScreeningRELEVANT HISTORY:LMP: [id number] ADEQUACY:SATISFACTORY FOR EVALUATIONENDOCERVICAL /TRANSFORMATIONAL ZONE COMPONENT PRESENTINTERPRETATION/ RESULTS:NEGATIVE FOR INTRAEPITHELIAL LESION OR MALIGNANCYADJUNCTIVE TESTING:HIGH RISK HPV DNA TESTING ORDERED, REPORT TO FOLLOW UNDER SEPARATE COVERElectronically Signed byPathology report verified by [facility].Screened by: KSElectronically signed by Marely WAKEFIELD (ASCP)Sign-Out Date: 11/13/2017 15:19Performing Lab: [address]DisclaimerThe Pap test is a screening test for cervical cancer. As evidenced by published data, it is subject to both inherent false negative and false positive results. Your patient's results should be interpreted in context with pertinent clinical history including gynecological examination. Normal [facility] ([place]) Comment on above: Performed By: #### G YCR ####[place] [address] TSHon 11-11-2017 Thyroid stimulating hormone (TSH) 1.52 mcIU/mL Normal 0.27-4.20 [facility] ([place]) Comment on above: Performed By: #### T ####[address] [place], [place] [address] Vital Signs Date Time Vital Sign Value Performing Clinician Teresa christianson 01-26-2025 11:12-0400 Body height 167.64 cm Aster HUANG Work Phone: [facility] 01-26-2025 11:12-0400 Body mass index (BMI) [Ratio] 25.9 kg/m2 Aster Ford MOLDING PROCESS TECHNICIAN-C Work Phone: [facility] 01-26-2025 11:12-0400 Body weight 73.02 kg Aster Ford MOLDING PROCESS TECHNICIAN-C Work Phone: [facility] 01-26-2025 11:12-0400 Diastolic blood pressure 80 mm[Hg] Aster Ford MOLDING PROCESS TECHNICIAN-C Work Phone: [facility] 01-26-2025 11:12-0400 Systolic blood pressure 122 mm[Hg] Asetr Ford MOLDING PROCESS TECHNICIAN-C Work Phone: [facility] 12-09-2023 15:20-0400 Heart rate 83 /min MOLDING PROCESS TECHNICIAN-C Aster Ford MOLDING PROCESS TECHNICIAN Work Phone: [facility] 12-09-2023 15:20-0400 SaO2% (BldA) [Mass fraction] 96 % MOLDING PROCESS TECHNICIAN-C Aster Ford MOLDING PROCESS TECHNICIAN Work Phone: [facility] 12-09-2023 15:18-0400 Diastolic blood pressure 67 mm[Hg] MOLDING PROCESS TECHNICIAN-C Aster Ford MOLDING PROCESS TECHNICIAN Work Phone: [facility] 12-09-2023 15:18-0400 Systolic blood pressure 116 mm[Hg] MOLDING PROCESS TECHNICIAN-C Aster Ford MOLDING PROCESS TECHNICIAN Work Phone: [facility] 12-09-2023 15:17-0400 Body temperature 97.9 [degF] MOLDING PROCESS TECHNICIAN-C Aster Ford MOLDING PROCESS TECHNICIAN Work Phone: [facility] 12-09-2023 15:17-0400 Respiratory rate 15 /min MOLDING PROCESS TECHNICIAN-C Aster Ford MOLDING PROCESS TECHNICIAN Work Phone: [facility] 12-08-2023 07:45-0400 Body height 168 cm MOLDING PROCESS TECHNICIAN-C Aster Ford MOLDING PROCESS TECHNICIAN Work Phone: [facility] 12-08-2023 07:45-0400 Body mass index (BMI) [Ratio] 28.8 kg/m2 MOLDING PROCESS TECHNICIAN-C Aster Ford MOLDING PROCESS TECHNICIAN Work Phone: [facility] 12-08-2023 07:45-0400 Body weight 81.3 kg MOLDING PROCESS TECHNICIAN-C Aster Ford MOLDING PROCESS TECHNICIAN Work Phone: [facility] 12-07-2023 11:09-0400 Body mass index (BMI) [Ratio] 28.8 kg/m2 MOLDING PROCESS TECHNICIAN-C Aster Lorson MOLDING PROCESS TECHNICIAN Work Phone: [facility] 12-07-2023 11:09-0400 Body weight 81.19 kg MOLDING PROCESS TECHNICIAN-C Aster Lorson MOLDING PROCESS TECHNICIAN Work Phone: [facility] 12-07-2023 11:09-0400 Diastolic blood pressure 89 mm[Hg] MOLDING PROCESS TECHNICIAN-C Asterfreddie Ford MOLDING PROCESS TECHNICIAN Work Phone: [facility] 12-07-2023 11:09-0400 Systolic blood pressure 130 mm[Hg] MOLDING PROCESS TECHNICIAN-C Aster Valentinoson MOLDING PROCESS TECHNICIAN Work Phone: [facility] 12-03-2023 10:52-0400 Body mass index (BMI) [Ratio] 28.5 kg/m2 MOLDING PROCESS TECHNICIAN-C Aster Ford MOLDING PROCESS TECHNICIAN Work Phone: [facility] 12-03-2023 10:52-0400 Body weight 80.28 kg MOLDING PROCESS TECHNICIAN-C Aster Ford MOLDING PROCESS TECHNICIAN Work Phone: [facility] 12-03-2023 10:52-0400 Diastolic blood pressure 80 mm[Hg] MOLDING PROCESS TECHNICIAN-C Aster Ford MOLDING PROCESS TECHNICIAN Work Phone: [facility] 12-03-2023 10:52-0400 Systolic blood pressure 115 mm[Hg] MOLDING PROCESS TECHNICIAN-C Aster Ford MOLDING PROCESS TECHNICIAN Work Phone: [facility] 11-24-2023 10:23-0400 Body mass index (BMI) [Ratio] 28.7 kg/m2 MOLDING PROCESS TECHNICIAN-C Aster Lorson MOLDING PROCESS TECHNICIAN Work Phone: [facility] 11-24-2023 10:23-0400 Body weight 80.73 kg MOLDING PROCESS TECHNICIAN-C Aster Ford MOLDING PROCESS TECHNICIAN Work Phone: [facility] 11-24-2023 10:23-0400 Diastolic blood pressure 78 mm[Hg] MOLDING PROCESS TECHNICIAN-C Aster Ford MOLDING PROCESS TECHNICIAN Work Phone: [facility] 11-24-2023 10:23-0400 Systolic blood pressure 112 mm[Hg] MOLDING PROCESS TECHNICIAN-C Aster Lorson MOLDING PROCESS TECHNICIAN Work Phone: [facility] 11-17-2023 10:22-0400 Body height 167.64 cm MOLDING PROCESS TECHNICIAN-C Aster Ford MOLDING PROCESS TECHNICIAN Work Phone: [facility] 11-17-2023 10:22-0400 Body mass index (BMI) [Ratio] 28.7 kg/m2 MOLDING PROCESS TECHNICIAN-C Aster Ford MOLDING PROCESS TECHNICIAN Work Phone: [facility] 11-17-2023 10:22-0400 Body weight 80.79 kg MOLDING PROCESS TECHNICIAN-C Aster Ford MOLDING PROCESS TECHNICIAN Work Phone: [facility] 11-17-2023 10:22-0400 Diastolic blood pressure 76 mm[Hg] MOLDING PROCESS TECHNICIAN-C Aster Ford MOLDING PROCESS TECHNICIAN Work Phone: [facility] 11-17-2023 10:22-0400 Systolic blood pressure 125 mm[Hg] MOLDING PROCESS TECHNICIAN-C Aster Ford MOLDING PROCESS TECHNICIAN Work Phone: [facility] 11-05-2023 10:25-0500 Body height 167.64 cm MOLDING PROCESS TECHNICIAN-C Aster Ford MOLDING PROCESS TECHNICIAN Work Phone: [facility] 11-05-2023 10:23-0500 Body mass index (BMI) [Ratio] 28.2 kg/m2 MOLDING PROCESS TECHNICIAN-C Aster Ford MOLDING PROCESS TECHNICIAN Work Phone: [facility] 11-05-2023 10:230500 Body weight 79.37 kg MOLDING PROCESS TECHNICIAN-C Aster Ford MOLDING PROCESS TECHNICIAN Work Phone: [facility] 11-05-2023 10:23-0500 Diastolic blood pressure 82 mm[Hg] MOLDING PROCESS TECHNICIAN-C Aster Ford MOLDING PROCESS TECHNICIAN Work Phone: [facility] 11-05-2023 10:23-0500 Systolic blood pressure 119 mm[Hg] MOLDING PROCESS TECHNICIAN-C Aster Ford MOLDING PROCESS TECHNICIAN Work Phone: [facility] 10-21-2023 09:54-0500 Body mass index (BMI) [Ratio] 28.3 kg/m2 MOLDING PROCESS TECHNICIAN-C Aster Ford MOLDING PROCESS TECHNICIAN Work Phone: [facility] 10-21-2023 09:54-0500 Body weight 79.49 kg MOLDING PROCESS TECHNICIAN-C Aster Ford MOLDING PROCESS TECHNICIAN Work Phone: [facility] 10-21-2023 09:54-0500 Diastolic blood pressure 74 mm[Hg] MOLDING PROCESS TECHNICIAN-C Aster Ford MOLDING PROCESS TECHNICIAN Work Phone: [facility] 10-21-2023 09:54-0500 Systolic blood pressure 104 mm[Hg] MOLDING PROCESS TECHNICIAN-C Aster Ford MOLDING PROCESS TECHNICIAN Work Phone: [facility] 10-05-2023 10:56-0500 Body mass index (BMI) [Ratio] 28 kg/m2 MOLDING PROCESS TECHNICIAN-C Aster Ford MOLDING PROCESS TECHNICIAN Work Phone: [facility] 10-05-2023 10:56-0500 Body weight 78.69 kg MOLDING PROCESS TECHNICIAN-C Aster Ford MOLDING PROCESS TECHNICIAN Work Phone: [facility] 10-05-2023 10:56-0500 Diastolic blood pressure 75 mm[Hg] MOLDING PROCESS TECHNICIAN-C Aster Ford MOLDING PROCESS TECHNICIAN Work Phone: [facility] 10-05-2023 10:56-0500 Systolic blood pressure 119 mm[Hg] MOLDING PROCESS TECHNICIAN-C Aster Ford MOLDING PROCESS TECHNICIAN Work Phone: [facility] 09-11-2023 11:48-0500 Diastolic blood pressure 66 mm[Hg] MOLDING PROCESS TECHNICIAN-C Aster Ford MOLDING PROCESS TECHNICIAN Work Phone: [facility] 09-11-2023 11:48-0500 Systolic blood pressure 110 mm[Hg] MOLDING PROCESS TECHNICIAN-C Aster Ford MOLDING PROCESS TECHNICIAN Work Phone: [facility] 09-11-2023 11:43-0500 Body mass index (BMI) [Ratio] 27.6 kg/m2 MOLDING PROCESS TECHNICIAN-C Aster Ford MOLDING PROCESS TECHNICIAN Work Phone: [facility] 09-11-2023 11:43-0500 Body weight 77.56 kg MOLDING PROCESS TECHNICIAN-C Aster Ford MOLDING PROCESS TECHNICIAN Work Phone: [facility] 08-06-2023 09:53-0500 Body mass index (BMI) [Ratio] 27.1 kg/m2 MOLDING PROCESS TECHNICIAN-C Aster Lorson MOLDING PROCESS TECHNICIAN Work Phone: [facility] 08-06-2023 09:53-0500 Body weight 76.31 kg MOLDING PROCESS TECHNICIAN-C Asterfreddie Ford MOLDING PROCESS TECHNICIAN Work Phone: [facility] 08-06-2023 09:53-0500 Diastolic blood pressure 79 mm[Hg] MOLDING PROCESS TECHNICIAN-C Aster Valentinoson MOLDING PROCESS TECHNICIAN Work Phone: [facility] 08-06-2023 09:53-0500 Systolic blood pressure 119 mm[Hg] MOLDING PROCESS TECHNICIAN-C Aster Ford MOLDING PROCESS TECHNICIAN Work Phone: [facility] 07-08-2023 09:42-0500 Body height 167.64 cm MOLDING PROCESS TECHNICIAN-C Aster Ford MOLDING PROCESS TECHNICIAN Work Phone: [facility] 07-08-2023 09:40-0500 Body mass index (BMI) [Ratio] 26 kg/m2 MOLDING PROCESS TECHNICIAN-C Aster Valentinoson MOLDING PROCESS TECHNICIAN Work Phone: [facility] 07-08-2023 09:40-0500 Body weight 73.19 kg MOLDING PROCESS TECHNICIAN-C Aster Ford MOLDING PROCESS TECHNICIAN Work Phone: [facility] 07-08-2023 09:40-0500 Diastolic blood pressure 73 mm[Hg] MOLDING PROCESS TECHNICIAN-C Aster Ford MOLDING PROCESS TECHNICIAN Work Phone: [facility] 07-08-2023 09:40-0500 Systolic blood pressure 121 mm[Hg] MOLDING PROCESS TECHNICIAN-C Aster Valentinoson MOLDING PROCESS TECHNICIAN Work Phone: [facility] 06-11-2023 10:28-0400 Body mass index (BMI) [Ratio] 25.4 kg/m2 MOLDING PROCESS TECHNICIAN-C Aster Valentinoson MOLDING PROCESS TECHNICIAN Work Phone: [facility] 06-11-2023 10:28-0400 Body weight 71.38 kg MOLDING PROCESS TECHNICIAN-C Astre Ford MOLDING PROCESS TECHNICIAN Work Phone: [facility] 06-11-2023 10:28-0400 Diastolic blood pressure 64 mm[Hg] MOLDING PROCESS TECHNICIAN-C Aster Valentinoson MOLDING PROCESS TECHNICIAN Work Phone: [facility] 06-11-2023 10:28-0400 Systolic blood pressure 91 mm[Hg] MOLDING PROCESS TECHNICIAN-C Aster Valentinoson MOLDING PROCESS TECHNICIAN Work Phone: [facility] 05-14-2023 13:35-0400 Body height 167.64 cm MOLDING PROCESS TECHNICIAN-C Aster Ford MOLDING PROCESS TECHNICIAN Work Phone: [facility] 05-14-2023 13:29-0400 Body mass index (BMI) [Ratio] 25.7 kg/m2 MOLDING PROCESS TECHNICIAN-C Aster Valentinoson MOLDING PROCESS TECHNICIAN Work Phone: [facility] 05-14-2023 13:29-0400 Body weight 72.12 kg MOLDING PROCESS TECHNICIAN-C Aster Ford MOLDING PROCESS TECHNICIAN Work Phone: [facility] 05-14-2023 13:29-0400 Diastolic blood pressure 83 mm[Hg] MOLDING PROCESS TECHNICIAN-C Aster Valentinoson MOLDING PROCESS TECHNICIAN Work Phone: [facility] 05-14-2023 13:29-0400 Systolic blood pressure 130 mm[Hg] MOLDING PROCESS TECHNICIAN-C Aster Ford MOLDING PROCESS TECHNICIAN Work Phone: [facility] Encounters Encounter Date Encounter Type Care Provider Facility Start: 06-21-2025 ambulatory Lisa Moore lity:[facility] Start: 01-31-2025 Encounter for genera l adult medical examination without abnormal findings Lisa Heard [facility] Start: 01-26-2025 Encounter for gynecological examination (general) (routine) without abnormal findings Lisa Heard [facility] Start: 01-26-2025 End: 01-26-[address] Lisa Heard MD -[facility] [place] [facility] Work Phone: Start: 01-26-2025 End: 01-26-[address] Lisa Heard MD [facility] Start: 01-26-2025 End: 01-26-2025 ambulatory Asterfreddie Ford MOLDING PROCESS TECHNICIAN-C Work Phone: [facility] Work Phone: Start: 01-26-2025 End: 01-26-2025 ambulatory Lisa Heard Facility:[facility] Start: 12-09-2023 Non-patient / Non-visit MOLDING PROCESS TECHNICIAN-C Sharmila Ford MOLDING PROCESS TECHNICIAN Work Phone: [facility] Start: 12-08-2023 Non-patient / Non-visit MOLDING PROCESS TECHNICIAN-C Sharmila Ford MOLDING PROCESS TECHNICIAN Work Phone: [facility] Start: 12-08-2023 End: 12-09-2023 Evaluation and management of inpatient MOLDING PROCESS TECHNICIAN-C Aster Ford MOLDING PROCESS TECHNICIAN [facility] Work Phone: Start: 12-07-2023 End: 12-07-2023 Patient encounter procedure MOLDING PROCESS TECHNICIAN-C Aster Ford MOLDING PROCESS TECHNICIAN Work Phone: [facility] Work Phone: Start: 12-03-2023 End: 12-03-2023 Patient encounter procedure MOLDING PROCESS TECHNICIAN-C Aster Lorjaime MOLDING PROCESS TECHNICIAN Work Phone: [facility] Work Phone: Start: 11-24-2023 End: 11-24-2023 Patient encounter procedure MOLDING PROCESS TECHNICIAN-C Aster Ford MOLDING PROCESS TECHNICIAN Work Phone: [facility] Work Phone: Start: 11-17-2023 End: 11-17-2023 ambulatory MOLDING PROCESS TECHNICIAN-C Aster Ford MOLDING PROCESS TECHNICIAN Work Phone: [facility] Work Phone: Start: 11-17-2023 End: 11-17-2023 Patient encounter procedure MOLDING PROCESS TECHNICIAN-C Aster Ford MOLDING PROCESS TECHNICIAN Work Phone: [facility]Laboratory[facility] Specimen Work Phone: Start: 11-17-2023 End: 11-17-2023 Patient encounter procedure MOLDING PROCESS TECHNICIAN-C Aster Ford MOLDING PROCESS TECHNICIAN Work Phone: [facility] Work Phone: Start: 11-05-2023 End: 11-05-2023 ambulatory MOLDING PROCESS TECHNICIAN-C Aster Ford MOLDING PROCESS TECHNICIAN Work Phone: [facility] Work Phone: Start: 11-05-2023 End: 11-05-2023 Patient encounter procedure MOLDING PROCESS TECHNICIAN-C Aster Ford MOLDING PROCESS TECHNICIAN Work Phone: [facility] Work Phone: Start: 10-21-2023 End: 10-21-2023 Patient encounter procedure MOLDING PROCESS TECHNICIAN-C Aster Ford MOLDING PROCESS TECHNICIAN Work Phone: [facility] Work Phone: Start: 10-05-2023 End: 10-05-2023 Patient encounter procedure MOLDING PROCESS TECHNICIAN-C Aster Ford MOLDING PROCESS TECHNICIAN Work Phone: [facility] Start: 09-11-2023 End: 09-11-2023 Patient encounter procedure MOLDING PROCESS TECHNICIAN-C Aster Ford MOLDING PROCESS TECHNICIAN Work Phone: [facility] [place] [facility] Work Phone: Start: 08-06-2023 End: 08-06-2023 Patient encounter procedure MOLDING PROCESS TECHNICIAN-C Aster Ford MOLDING PROCESS TECHNICIAN Work Phone: [facility] Work Phone: Start: 07-16-2023 End: 07-16-2023 ambulatory MOLDING PROCESS TECHNICIAN-C Aster Ford MOLDING PROCESS TECHNICIAN Work Phone: [facility] Work Phone: Start: 07-16-2023 End: 07-16-2023 Patient encounter procedure MOLDING PROCESS TECHNICIAN-C Aster Ford MOLDING PROCESS TECHNICIAN Work Phone: [facility] Work Phone: Start: 07-08-2023 End: 07-08-2023 Patient encounter procedure MOLDING PROCESS TECHNICIAN-C Aster Ford MOLDING PROCESS TECHNICIAN Work Phone: [facility] Work Phone: Start: 06-11-2023 End: 06-11-2023 Patient encounter procedure MOLDING PROCESS TECHNICIAN-C Aster Ford MOLDING PROCESS TECHNICIAN Work Phone: [facility] @ Start: 05-14-2023 End: 05-14-2023 ambulatory MOLDING PROCESS TECHNICIAN-C Aster Ford MOLDING PROCESS TECHNICIAN Work Phone: [facility] Work Phone: Start: 05-14-2023 End: 05-14-2023 Patient encounter procedure MOLDING PROCESS TECHNICIAN-Kely Ford MOLDING PROCESS TECHNICIAN Work Phone: [facility]Laboratory[facility] Specimen Work Phone: Start: 05-14-2023 End: 05-14-2023 Patient encounter procedure MOLDING PROCESS TECHNICIAN-C Aster Ford MOLDING PROCESS TECHNICIAN Work Phone: [facility] Work Phone: Start: 02-02-2018 End: 02-02-2018 Ambulatory [facility] Start: 11-11-2017 End: 11-16-2017 Ambulatory ASTER FORD Facility:[facility] Procedures Date Procedure Procedure Detail Performing Clinician Start: 11-17-2023 Group B Streptococcu s Culture MOLDING PROCESS TECHNICIAN-Kely Ford MOLDING PROCESS TECHNICIAN Work Phone: Start: 11-05-2023 Ultrasound scan for growth MOLDING PROCESS TECHNICIAN-Kely Ford MOLDING PROCESS TECHNICIAN Work Phone: Start: 07-16-2023 Ultrasonography in f irst trimester MOLDING PROCESS TECHNICIAN-Kely Ford MOLDING PROCESS TECHNICIAN Work Phone: Start: 05-14-2023 Urine culture MOLDING PROCESS TECHNICIAN-C Jimena Ford MOLDING PROCESS TECHNICIAN Work Phone: Plan of Treatment Date Care Activity Detail Author Start: 01-26-2025 CBC W Auto Different ial panel - Blood [facility] Start: 01-26-2025 Thyroid stimulating hormone measurement [facility] Start: 12-08-2023 Patient discharge [facility] Start: 12-08-2023 Administration of medication [facility] Start: 12-08-2023 Application of ice c ollar, cap or bag [facility] Start: 12-08-2023 Catheterization of vein [facility] Start: 12-08-2023 Introduction of urinary catheter [facility] Start: 12-08-2023 Measuring intake and output [facility] Start: 12-08-2023 Notification of physician [facility] Start: 12-08-2023 Procedure discontinued [facility] Start: 12-08-2023 Provision of activity privileges [facility] Start: 12-08-2023 Vital signs measurements [facility] Start: 12-08-2023 End: 12-08-2023 [facility] Start: 12-08-2023 Documentation procedure [facility] Start: 12-08-2023 Admission procedure [facility] Erythrocyte mean cor puscular volume determination [facility] Hematocrit [Volume F raction] of Blood [facility] Hemoglobin [Mass/volume] in Blood [facility] Leukocytes [#/volume] in Blood [facility] Mean corpuscular hem oglobin concentration determination [facility] Mean corpuscular hem oglobin determination [facility] MG Breast - bilateral Screening [facility] Neutrophil count [facility] Neutrophil percent d ifferential count [facility] Patient referral [facility] Work Phone: Platelets [#/volume] in Blood [facility] Red blood cell count [facility] Red cell distributio n width determination [facility] Immunizations Immunization Date Immunization Notes Care Provider Musa blanco 06-21-2020 Influenza virus vaccine MOLDING PROCESS TECHNICIAN-Kely Ford MOLDING PROCESS TECHNICIAN Work Phone: [facility] 04-05-2019 measles, mumps and rubella virus vaccine MOLDING PROCESS TECHNICIAN-Kely Ford NP Work Phone: [facility] 04-05-2019 varicella virus vaccine MOLDING PROCESS TECHNICIAN-C Aster Ford MOLDING PROCESS TECHNICIAN Work Phone: [facility] 01-29-2019 tetanus toxoid, redu luis alberto diphtheria toxoid, and acellular pertussis vaccine, adsorbed MOLDING PROCESS TECHNICIAN-C Aster Ford MOLDING PROCESS TECHNICIAN Work Phone: [facility] Payers Date Payer Category Payer Unknown [id number] 2017 Self-pay 1959 Unknown [id number] Unknown [facility] [employer] [id number] Unknown [id number] Unknown [id number] Unknown [id number] Social History Date Type Detail Facility Start: 05-14-2023 End: 12-08-2023 Tobacco smoking status NHIS Unknown if ever smoked [facility] Start: 04-04-2019 None [facility] Start: 1985 Sex Assigned At Female [facility] Start: 01-26-2024 Tobacco smoking stat us NHIS Never smoked tobacco (finding) [facility] Goals Date Patient Goal Desired Activity /State Clinical Notes 05-14-2023 to 01-26-2025 Note Date & Type Note Facility 01-26-2025 Evaluation note Diagnosis Onset Date Resolution Encounter for routine gynecological examination noneactive January 26, 2025 11:00am [facility] Work Phone: 1(400) 967-532105-29-2025 Progress [facility] [address], [address] [place] [address] OFFICE VISIT Date of Service: 01/26/25 MR#: [id number] Acct: [id number] Name: ALEJANDRA RUSH Rep #: [id number] : 1985 Provider: Dr. 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 Nurse Required: No Is patient in pain?: Yes (left leg aching during the night) Allergies No Known Allergies Allergy (Verified 01/26/25 11:15) Medications ?Medication ?Instructions ?Recorded ?Confirmed ?Type vitamin#30 30 mg iron-10 1 cap PO DAILY pregn garima 03/02/19 01/26/25 History mg iron-folic acid 1 mg-omg3 capsule citalopram 20 mg tablet 20 mg PO DAILY #30 tabs 12/3001/26/25 Rx Is last menstrual period known: Yes Last Menstrual Period: 01/23/25 Post menopausal: No Patient : No : [facility] Medical History Vaginal delivery Choroid plexus cyst Infertility Surgical History History of hysteroscopy H/O wisdom tooth extraction Family History Father Anxiety Social History adopted: No household members: spouse housing: house number of children: 3 pets and animals: No history of recent travel: Yes sexually active: Yes Smoking Status: Never smoker second hand exposure: No alcohol intake: never substance use type: does not use caffeine: No lorenzo/catholic: Mennonite seatbelt use: always do you feel safe at home: Yes additional social history: Arvind- works at a [employer] [place] History 3 Elective abortions Hx Para 3 Spontaneous abortions Hx # Term Pregnancies Ectopic pregnancies Hx # Pregnancies Multiple births # of living children 3 Past Pregnancies Del. Date Name GA/Weeks Outcome Route Bth Weight Infant Gen Labor Lgth Anesthesia Del Locatn Provider FOB 04/04/19 Beau 39 live - full term 7lbs Male [facility] AMBAR 09/25/20 Israel 39 live - full term Male [facility] Félix 12/08/23 Madi 40 live - full term 8#4 Male [facility] Félix Delivery Date: 04/04/19 Last Updated by: Digna Sampson 2 degree laceration Delivery Date: 09/25/20 Last Updated by: Maria E GREEN Delivery Date: 12/08/23 Last Updated by: Maria E GREEN AMA HPI Encounter for routine gynecological examination Details: ALEJANDRA RUSH is a 39 year old who presents for 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she is feeling fatigued, her son is waking her up at night and this may be contributing Last PAP: 05/14/2023 - normal History of abnormal PAP: Last mammogram: due this year - order placed History of abnormal mammogram: Colon cancer screening: not due Other preventative health care screenings: PCP [facility] [place] Female Reproductive History Last Menstrual Period: 01/23/25 Cycle Length: 21-35 Bleeding Duration: 5 Questions: metorrhagia: No, sexually active: Yes, dyspareunia: No and PCB: No Menopausal Symptoms: No hot flashes, No night sweats, No weight change, No mood changes, No difficulty concentrating, No sleep problems and No change in libido ROS Const Constitutional: Reports as per HPI, fatigue and increased appetite; Denies poor appetite, night sweats, weight gain or weight loss Cardio Card: Denies chest pain Resp Resp: Denies cough or dyspnea GI GI: Reports as per HPI; Denies abdominal pain, bloating, constipation, nausea or vomiting : Reports as per HPI, nipple discharge (breast feeding) and other; Denies difficulty voiding, dysuria, hematuria, hot flashes, pelvic pain, prolapse symptoms, urinaryfrequency, urinary incontinence, urinary urgency, vaginal discharge, vaginal dryness, vaginal odor or vaginal pruritus Skin Skin/Breast: Reports nipple discharge (breast feeding); Denies changing lesions, breast mass, breast pain or breast skin changes Psych Psych: Reports depression; Denies anxiety, change in libido or difficulty concentrating Exam Const General: cooperative, healthy appearing, comfortable, no acute distress, well developed and well groomed HENCA Head: normal to inspection and normocephalic Ears: hearing grossly normal bilaterally and external ears normal Nose: external nose normal Face and sinus: normal facial exam Neck Neck: normal visual inspection, full ROM and no lymphadenopathy Thyroid: thyroid normal Chest Chest palpation & inspection: normal inspection of the chest Breast inspection: normal inspection of the breasts and normal inspection of theaxillae Breast palpation: normal palpation of the breasts, normal palpation of the axillae and no axillary lymphadenopathy Resp Effort & Inspection: normal respiratory effort GI Inspection: normal to inspection and non-distended Palpation: soft, no hepatosplenomegaly and no guarding General: bladder normal to palpation External Female Exam: normal external appearance, normal appearance of the urethra and no lesions Urethra: normal appearance of the urethra and normal palpation Speculum Exam - Vagina: normal appearance of the vagina and normal vaginal discharge Speculum Exam - Cervix: normal appearance of the cervix, no cervical discharge, no lesions and nontender Bimanual Exam- Vagina & Uterus: normal bimanual exam, uterine size normal, bladder normal to palpation, No tender, uterine mobility normal, consistency normal, non-tender and no cervical motion tenderness Bimanual Exam- Adnexa, other: normal adnexae, no masses and non-tender Skin General: no rashes or lesions noted Neuro General: patient alert, moves all extremities and no focal motor deficits Extrem General: normal to inspection and no pedal edema Psych Appearance: grossly normal Mental Status: mental status grossly normal Affect: normal affect Speech and Movement: speech and movement normal Attitude: cooperative Coding Level of Care Code Off vis,est,prev 18-39yrs Diagnoses Encounter for gynecological examination without abnormal finding Z01.419 Gynecological examination findings: abnormal findings ABSENT Assessment and Plan Assessment and Plan (1) Encounter for routine gynecological examination: Qualifiers: Gynecological examination findings: abnormal findings ABSENT Qualified Code(s): Z01.419 - Encounterfor gynecological examination (general) (routine) without abnormal findings Orders: Orders SCRN MAMM (CAD)W/ELGIN BILAT Today Z12.31 - Encounter for screening mammogram for malignant neoplasmof breast Medications: New citalopram 20 mg PO DAILY 30 tabs 12RF Plan Cervical cancer screening: pap hpv up to date Breast cancer screening: mamm ordered ordered celexa other health maintenance examination reviewed and orders placed if needed. Encouraged maintenance of a healthy weight and active lifestyle and handout given. Annual exam handout including recommendations for good health guidelines, Calcium/vitamin D recommendations, and basic screening information given. Problem list up to date, see problem list details for any additional plan information. Follow up in one year for annual health maintenance exam or sooner if needed. 01/26/25 1150 jordana SERVIN> Date _ Lisa Heard MD [facility] Signature: Date (if applicable) CC: ~ [facility]04-10-2024 Progress note Author Tyra Hanson [facility] December 09, 2023 11:24am Note Date/Time December 09, 2023 8:[address] [facility] Medical Records Department [address] [place] [address] Progress Note - OBGYN 12/09/23819 MR#: [id number] Acct: [id number] Name: ALEJANDRA RUSH Rep #:[id number] : 1985 38 From: Tyra Hanson CNM PCP: [facility] Shipman Status:ADM I N Location: [place] [address] Subjective Subjective Patient doing well without complaints. Tolerating PO. Ambulating and voiding without difficulty. Feeding well. Denies chest pain, shortness of breath, calf pain/swelling, fevers, chills, lightheadedness. Objective Data Objective Data Vital Signs: Vital Signs Temp Pulse Resp BP Pulse Ox O2 Del Method 98.5 F 83 16 112/58 L 97 Room Air 12/09/23 04:32 12/09/23 04:32 12/09/23 04:32 12/09/23 04:32 12/09/23 04:32 12/09/23 04:32 Oxygen Delivery Method Room Air Weight: 179 lb 4 oz Body Mass Index (BMI) 28.8 Intake & Output: Intake and Output for Last 24 Hours 12/07/23 12/08/23 12/09/23 23:59 23:59 23:59 Intake Total 1500.00 / 1500.00 Output Total 600 / 600 Balance 900.00 / 900.00 Lab / Micro Data 12/08/23 08:00 Labs: Laboratory Results - last 24 hr 12/08/23 08:00: Syphilis Total Ab Non-reactive, Blood Type B POSITIVE, Antibody Screen NEGATIVE Assessment & Plan (1) Vaginal delivery: COMMENT: ron Barraza SM 40 IOL AMA PLAN: s/p PPD # 1 1. routine post delivery care 2. breast feeding- support given 3. rh positive 4. rubella immune 5. considering d/c today. 12/09/23 1124 <Electronically signed by Tyra Hanson CNM> Cosigner Signature (if applicable): CC: ~ Signed [facility] Work Phone: 1(642) 817-451504-09-2024 Discharge summary Author Lisa Heard [facility] December 08, 2023 5:41pm Note Date/Time December 08, 2023 5:41 pm [facility] Medical Records Department [address] [place] [address] Instructions for Home/Discharge Instructions 12/08/23 1741 MR#: [id number] Acct: [id number] Name: ALEJANDRA RUSH Rep #:[id number] : 1985 38 From: Lisa amaya MD PCP: Aster Ford NP-C Status:ADM I N Discharge Instructions Diet Discharge Diet: No restrictions Activity Discharge Activity: Return to Normal Activity, May Not Drive (while taking narcotic pain medications.) and May Shower May resume sexual activity in: 4-6 weeks Dressing / Incision Call your doctor if your incision/area has: Continuous Slow Oozing, Sudden Increased Bleeding, Increased Pain/ Swelling, Increased Redness and Foul Smelling Discharge Follow Up Care Please Follow Up With: Lisa Heard MD When: Call [phone] to make an appointment with your doctor in 6 weeks. If you had elevated blood pressure or 4th degree laceration, you will need to be seen in 2 weeks. Test Results: Test results from this visit will be discussed in further detail at your follow- up appointment, if applicable. Discharge Plan Admission Admit Date/Time: 12/08/23 07:15 Attending Provider: Lisa Heard Primary Care Provider: Aster Ford NP Discharge Orders/Prescriptions Prescriptions: No Action vitamin#30 30 mg iron-10 mg iron-folic acid 1 mg-omg3 capsule 30 mg iron-10 mg iron-1 mg capsule 1 cap PO DAILY ondansetron 4 mg tablet,disintegrating 4 mg PO Q8H Qty: 20 0RF Hold Instructions: pt not using] Referrals / Follow Up: Aster Ford NP, MOLDING PROCESS TECHNICIAN-C [Primary Care Provider] - Disposition Disposition (needs filled in before D/C Order can be placed): Home, Self Care 12/08/23 1741<Electronically signed by Lisa Heard MD>Lisa Heard MD CC: MOLDING PROCESS TECHNICIAN-C Aster Ford ~ Signed [facility] Work Phone: 1(810) 373-511204-09-2024 Procedure [facility] 12-08-2023 History and physical note Author Lisa Heard [facility] December 08, 2023 9:11am Note Date/Time December 08, 2023 9:11 am [facility] Medical Records Department [address] [place] [address] H&P Exam - MEMBERSHIP DIRECTOR 12/08/23 0908 MR#: [id number] Acct: [id number] Name: ALEJANDRA RUSH Rep #:[id number] : 1985 38 From: Lisa amaya MD PCP: SAL Shipman Status:ADM I N Location: [id number] HPI - General General Date of Admission: 12/08/23 HPI Narrative ALEJANDRA RUSH, is a 38 F who presents for IOL secondary to AMA and postdates. she denies any bleeding or LOF admits good fm. irregular ctx Maternal Data Information KASHIF Calculator Estimated Delivery Date Method Current WG Current Estimate 12/07/23 Ultrasound #1 40w 1d Other Estimates 12/14/23 LMP (Certain) 39w 1d PFSH PFSH Medical History Choroid plexus cyst Infertility Home Medications vitamin#30 30 mg iron-10 mg iron-folic acid 1 mg-omg3 capsule 1 cap PO DAILY 03/02/19 [History Last Taken 04/03/19 08:00] ondansetron 4 mg disintegrating tablet 4 mg PO Q8H nausea #20 tabs 06/11/23 [Rx Last Taken Unknown] Allergy/AdvReac Type Severity Reaction Status Date / Time No Known Allergies Allergy Verified 12/08/23 08:05 Family History Father Anxiety Surgical History H/O wisdom tooth extraction History of hysteroscopy Social History adopted: No household members: spouse housing: house number of children: 2 pets and animals: No history of recent travel: Yes sexually active: Yes Smoking Status: Never smoker second hand exposure: No alcohol intake: never substance use type: does not use caffeine: No lorenzo/catholic: Mennonite seatbelt use: always do you feel safe at home: Yes additional social history: Arvind- works at a [employer] [place] History 3 Elective abortions Hx Para 2 Spontaneous abortions Hx # Term Pregnancies Ectopic pregnancies Hx # Pregnancies Multiple births # of living children 2 Past Pregnancies Del. Date Name GA/Weeks Outcome Route Bth Weight Gen Labor Lgth Anesthesia Del Locatn Provider FOB 04/04/19 Beau 39 live - full term 7lbs Male [facility] AMBAR 09/25/20 Israel 39 live - full term Male [facility] Félix Delivery Date: 04/04/19 Last Updated by: Digna Sampson 2 degree laceration Delivery Date: 09/25/20 Last Updated by: Maria E GREEN Visit Details Expected Delivery Route/Plan Labor Preferences- CB/BF classes: [] labor support person: [] labor intervention preferences: [] pain management options preferred: [] cut cord/dad catch: [] : [] PP control planned: [] discussed possible routes of delivery and associated risks: [] special requests: [] Plans Covid status: declined Flu vaccine: got at health dept Tdap vaccine: [] Rhogam: [] LARC form signed: [] Problem list reviewed and updated with the most current plan of care details and appropriate orders placed. Relevant counseling for the gestational age provided. Continue routine care and follow up unless otherwise noted in visit notes/problem list details OB Flowsheet Initial Weight: 159 lb Date -?-?-?-?-?-?-?-?-?-?-?-?- EGA Weight BP Urine Prot -?-?-?-?-?-?-?-?-?-?-?-?- Glucose FHR FuHt Pres Dilation -?-?-?-?-?-?-?-?-?-?-?-?- Effaced St Visit Note 05/14/23 -?-?-?-?-?-?-?-?-?-?-?-?- 10w 3d 159 lb (+0 oz) 130/83 -?-?-?-?-?-?-?-?-?-?-?-?- 175 -?-?-?-?-?-?-?-?-?-?-?-?- KW-CRL not cons with LMP. reviewed with SM. KASHIF changed 06/11/23 -?-?-?-?-?-?-?-?-?-?-?-?- 14w 3d 157 lb 6 oz (-1 lb 10 oz) 91/64 Trace -?-?-?-?-?-?-?-?-?-?-?-?- Negative 155 -?-?-?-?-?-?-?-?-?-?-?-?- LC- no vb/crampi ng. declines afp. anatomy ordered. 07/08/23 -?-?-?-?-?-?-?-?-?-?-?-?- 18w 2d 161 lb 6 oz (+2 lb 6 oz) 121/73 Negative -?-?-?-?-?-?-?-?-?-?-?-?- Negative 153 -?-?-?-?-?-?-?-?-?-?-?-?- JV- no lof, vagi nal bleeding, or cramping. wants flu shot but will get at health department. 08/06/23 -?-?-?-?-?-?-?-?-?-?-?-?- 22w 3d 168 lb 4 oz (+9 lb 4 oz) 119/79 -?-?-?-?-?-?-?-?-?-?-?-?- 145 -?-?-?-?-?-?-?-?-?-?-?-?- SM- no vb lof go od fm no regualr ctx 09/11/23 -?-?-?-?-?-?-?-?-?-?-?-?- 27w 4d 171 lb (+12 lb) 110/66 110/66 Negative -?-?-?-?-?-?-?-?-?-?-?-?- Negative 145 27 -?-?-?-?-?-?-?-?-?-?-?-?- SM- no vb lof go od fm nor egular ctx cbc gct today and pending 10/05/23 -?-?-?-?-?-?-?-?-?-?-?-?- 31w 0d 173 lb 8 oz (+14 lb 8 oz) 119/75 Negative -?-?-?-?-?-?-?-?-?-?-?-?- Negative 140 31 -?-?-?-?-?-?-?-?-?-?-?-?- KW- no vb/crampi ng. good fm. getting Tdap at health department. LARC done. may want PP tubal. KW- no vb/cramping. good fm. getting Tdap at health department. LARC done. may want PP tubal. 36 week growth US ordered 10/21/23 -?-?-?-?-?-?-?-?-?-?-?-?- 33w 2d 175 lb 4 oz (+16 lb 4 oz) 104/74 Negative -?-?-?-?-?-?-?-?-?-?-?-?- Negative 145 33 -?-?-?-?-?-?-?-?-?-?-?-?- JV- having some stress at home due to not communicating well. 11/05/23 -?-?-?-?-?-?-?-?-?-?-?-?- 35w 3d 175 lb (+16 lb) 119/82 Negative -?-?-?-?-?-?-?-?-?-?-?-?- Negative 140 35 -?-?-?-?-?-?-?-?-?-?-?-?- SM- no vb lof go od fm n oregular ctx 11/17/23 -?-?-?-?-?-?-?-?-?-?-?-?- 37w 1d 178 lb 2 oz (+19 lb 2 oz) 125/76 -?-?-?-?-?-?-?-?-?-?-?-?- 140 37 -?-?-?-?-?-?-?-?-?-?-?-?- KW- no vb/lof/ct x. good fm. GBS today. labor precautions 11/24/23 -?-?-?-?-?-?-?-?-?-?-?-?- 38w 1d 178 lb (+19 lb) 112/78 Negative -?-?-?-?-?-?-?-?-?-?-?-?- Negative 140 37 -?-?-?-?-?-?-?-?-?-?-?-?- SM- no vb lof go od fm no regular ctx 12/03/23 -?-?-?-?-?-?-?-?-?-?-?-?- 39w 3d 177 lb (+18 lb) 115/80 -?-?-?-?-?-?-?-?-?-?-?-?- 140 39 Cephalic 4 -?-?-?-?-?-?-?-?-?-?-?-?- 60 -1 SM- no vb lof good fm no regualr ctx discussed IOL NST FHR Rate Baby A Baseline: 130 Variability:: Moderate Accelerations:: 15 x 15 Decelerations:: None NST Reactive:: Yes FHR Category:: Category I Uterine Activity:: irregular ROS Constitutional Constitutional: Reports systems reviewed and no addt'l complaints, except as documented Eyes Eyes: Denies change in vision ENT HEENT: Reports systems reviewed and no addt'l complaints, except as documented; Denies headache(s) Cardiovascular Cardiovascular: Reports systems reviewed and no addt'l complaints, except as documented; Denies chest pain or dyspnea Respiratory/Chest Respiratory/Chest: Reports systems reviewed and no addt'l complaints, except as documented Gastrointestinal Gastrointestinal: Reports systems reviewed and no addt'l complaints, except as documented; Denies abdominal pain Genitourinary Genitourinary: Reports systems reviewed and no addt'l complaints, except as documented, contractions Details: present (irregular) and movement Details: present; Denies dysuria or genital lesions Musculoskeletal Musculoskeletal: Reports systems reviewed and no addt'l complaints, except as documented Neurologic Neurologic: Reports systems reviewed and no addt'l complaints, except as documented Endocrine Endocrinology: Reports systems reviewed and no addt'l complaints, except as documented Vital Signs Vital Signs Vital Signs: 12/08/23 07:39 12/08/23 07:39 Pulse Rate 93 Blood Pressure 124/61 H BP Systolic 124 BP Diastolic 61 Weight Weight: 179 lb 4 oz Body Mass Index (BMI) 28.8 Physical Exam Const alert, oriented x3, no apparent distress and healthy appearing HEENT normocephalic and moist oral mucous membranes Head and Scalp: atraumatic Neck full ROM, no lymphadenopathy, supple and thyroid normal General: trachea midline Lymph Lymphatic: no lymphadenopathy noted Chest inspection of chest normal Resp normal respiratory effort Cardio regular rate GI normal to inspection, nondistended, normoactive bowel sounds, soft to palpation and non-tender Inspection: gravid external exam normal Manual OB Exam: estimated gestational size appropriate, presentation cephalic, dilated, effaced and station Extremity normal to inspection General Extremity: Negative for edema Skin no rashes or lesions noted Neuro no focal motor deficits and deep tendon reflexes 2+ bilaterally Motor Exam: strength 5/5 throughout and clonus absent Psych mental status grossly normal Labs Labs Labs: Blood Type B POSITIVE Antibody Screen NEGATIVE Hct 35.5 % (37-47) L Hgb 11.7 g/dL (12.0-15.0) L Obstetrics Ultrasound Syphilis Total Ab Non-reactive Rubella IgG Antibody Equiv (Nonreactive) Hep Bs Antigen Non-Reactive (Nonreactive) Hepatitis C Antibody Non-Reactive (Nonreactive) Chlamydia DNA (ANDREA) Negative (Negative) N.gonorrhoeae DNA (ANDREA) Negative (Negative) HIV 1&2 Antibody Non-Reactive (Nonreactive) Glucose 1 Hr 50 gm 129 mg/dL (70-140) Rhogam given: No Assessment & Plan (1) Choroid plexus cyst: COMMENT: offered NIPT, patient declined. (2) Family history of hemophilia: COMMENT: update peds at delivery father in law has it, FOB not affected (3) AMA (advanced maternal age) multigravida 35+: COMMENT: genetic counseling provided and will consider, growth US at 36 weeks. (68%) (4) Supervision of high risk , antepartum: COMMENT: PRR KASHIF 12/18/2023 boy PC: Israel Florentino Spouse: Arvind (5) : QUALIFIERS: Weeks of gestation: 39 weeks Qualified Code(s): Z3A.39 - 39 weeks gestation of COMMENT: GBS neg, Discussed NIPT, afp and carrier screening declined. anatomy reveiwed. (6) Rubella non-immune status, antepartum: COMMENT: can't maintain immunity, given vaccine in past, states had disease as a child. recommend avoidance PLAN: Plan Patient presents IOL, plan management for with pitocin/AROM. Pain management: minimal intervention. GBS negative. Management of any complications: ama I have reviewed the [facility] and made any clinically relevant updates. 12/08/23 0911 <Electronically signed by Lisa Heard MD> Cosigner Signature (if applicable): CC: SAL Ford; Dr. Lisa Heard MD~ Signed [facility] Work Phone: 1(464) 164-468109-14-2023 NotePap Smear Specimen AdequacySeptember 2022 3:13pmComment.Satisfactory for evaluation. Endocervical and/or squamous metaplasticcells (endocervical component)are present.[facility] A#[id number] Valley Surgical HospitalComment on above:Satisfactory for evaluation. Endocervical and/or squamous metaplasticcells (endocervical component)are present.05-14-2023 NotePap Smear Specimen AdequacySeptember 2022 3:13pmComment.Satisfactory for evaluation. Endocervical and/or squamous metaplasticcells (endocervical component)are present.[facility] A#[id number] Valley Surgical HospitalComment on above:Satisfactory for evaluation. Endocervical and/or squamous metaplasticcells (endocervical component)are present.05-14-2023 NotePap Smear Specimen AdequacySeptember 2022 2:13pmComment.Satisfactory for evaluation. Endocervical and/or squamous metaplasticcells (endocervical component)are present.[facility] A#[id number] Valley Surgical HospitalComment on above:Satisfactory for evaluation. Endocervical and/or squamous metaplasticcells (endocervical component)are present.Evaluation note* Diagnosis Onset Date Resolution Status AMA (advanced maternal age) multigravida 35+ acute acute Rubella non-immune status, antepartum acute Supervision of high risk , antepartum acute [facility] Work Phone: Evaluation note* Diagnosis Onset Date Resolution Status AMA (advanced maternal age) multigravida 35+ acute acute Rubella non-immune status, antepartum acute Supervision of high risk , antepartum acute AMA (advanced maternal age) multigravida 35+ acute acute Rubella non-immune status, antepartum acute Supervision of high risk , antepartum acute AMA (advanced maternal age) multigravida 35+ acute acute Rubella non-immune status, antepartum acute Supervision of high risk , antepartum acute [facility] Work Phone: Evaluation note* Diagnosis Onset Date Resolution Status AMA (advanced maternal age) multigravida 35+ acute Choroid plexus cyst acute Family history of hemophilia acute acute Rubella non-immune status, antepartum acute Supervision of high risk , antepartum acute AMA (advanced maternal age) multigravida 35+ acute Choroid plexus cyst acute Family history of hemophilia acute acute Rubella non-immune status, antepartum acute Supervision of high risk , antepartum acute AMA (advanced maternal age) multigravida 35+ acute Choroid plexus cyst acute Family history of hemophilia acute acute Rubella non-immune status, antepartum acute Supervision of high risk , antepartum acute AMA (advanced maternal age) multigravida 35+ acute Choroid plexus cyst acute Family history of hemophilia acute acute Rubella non-immune status, antepartum acute Supervision of high risk , antepartum acute AMA (advanced maternal age) multigravida 35+ acute Choroid plexus cyst acute Family history of hemophilia acute acute Rubella non-immune status, antepartum acute Supervision of high risk , antepartum acute [facility] Work Phone: Evaluation note* Diagnosis Onset Date Resolution Status AMA (advanced maternal age) multigravida 35+ acute Choroid plexus cyst acute Family history of hemophilia acute acute Rubella non-immune status, antepartum acute Supervision of high risk , antepartum acute AMA (advanced maternal age) multigravida 35+ acute Choroid plexus cyst acute Family history of hemophilia acute acute Rubella non-immune status, antepartum acute Supervision of high risk , antepartum acute AMA (advanced maternal age) multigravida 35+ acute Choroid plexus cyst acute Family history of hemophilia acute acute Rubella non-immune status, antepartum acute Supervision of high risk , antepartum acute AMA (advanced maternal age) multigravida 35+ acute Choroid plexus cyst acute Family history of hemophilia acute acute Rubella non-immune status, antepartum acute Supervision of high risk , antepartum acute AMA (advanced maternal age) multigravida 35+ acute Choroid plexus cyst acute Family history of hemophilia acute acute Rubella non-immune status, antepartum acute Supervision of high risk , antepartum acute AMA (advanced maternal age) multigravida 35+ acute Choroid plexus cyst acute Family history of hemophilia acute acute Rubella non-immune status, antepartum acute Supervision of high risk , antepartum acute [facility] Work Phone: Evaluation note* Diagnosis Onset Date Resolution Status AMA (advanced maternal age) multigravida 35+ resolved Choroid plexus cyst resolved Family history of hemophilia resolved resolved Rubella non-immune status, antepartum resolved Supervision of high risk , antepartum resolved AMA (advanced maternal age) multigravida 35+ resolved Choroid plexus cyst resolved Family history of hemophilia resolved resolved Rubella non-immune status, antepartum resolved Supervision of high risk , antepartum resolved AMA (advanced maternal age) multigravida 35+ resolved Choroid plexus cyst resolved Family history of hemophilia resolved resolved Rubella non-immune status, antepartum resolved Supervision of high risk , antepartum resolved AMA (advanced maternal age) multigravida 35+ resolved Choroid plexus cyst resolved Family history of hemophilia resolved resolved Rubella non-immune status, antepartum resolved Supervision of high risk , antepartum resolved AMA (advanced maternal age) multigravida 35+ resolved Choroid plexus cyst resolved Family history of hemophilia resolved resolved Rubella non-immune status, antepartum resolved Supervision of high risk , antepartum resolved AMA (advanced maternal age) multigravida 35+ resolved Choroid plexus cyst resolved Family history of hemophilia resolved resolved Rubella non-immune status, antepartum resolved Supervision of high risk , antepartum resolved AMA (advanced maternal age) multigravida 35+ resolved Choroid plexus cyst resolved Family history of hemophilia resolved resolved Rubella non-immune status, antepartum resolved Supervision of high risk , antepartum resolved AMA (advanced maternal age) multigravida 35+ resolved Choroid plexus cyst resolved Family history of hemophilia resolved resolved Rubella non-immune status, antepartum resolved Supervision of high risk , antepartum resolved Vaginal delivery acute AMA (advanced maternal age) multigravida 35+ resolved Choroid plexus cyst resolved Family history of hemophilia resolved resolved Rubella non-immune status, antepartum resolved Supervision of high risk , antepartum resolved [facility] Work Phone: Evaluation note* Diagnosis Onset Date Resolution Status Admit Date Encounter for routine gynecological examination noneactive January 262024 11:00am [facility] Work Phone: Progress note Author Lisa Heard [facility] Note Date/Time January 26, 2025 11:50 am [facility] [address] [place] [address], [address] [place] [address] OFFICE VISIT Date of Service: 01/26/25 MR#: [id number] Acct: [id number] Name: ALEJANDRA RUSH Rep #: [id number] : 1985 Provider: Dr. 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 Nurse Required: No Is patient in pain?: Yes (left leg aching during the night) Allergies No Known Allergies Allergy (Verified 01/26/25 11:15) Medications ?Medication ?Instructions ?Recorded ?Confirmed ?Type vitamin#30 30 mg iron-10 1 cap PO DAILY pregn garima 03/02/19 01/26/25 History mg iron-folic acid 1 mg-omg3 capsule citalopram 20 mg tablet 20 mg PO DAILY #30 tabs 12/3001/26/25 Rx Is last menstrual period known: Yes Last Menstrual Period: 01/23/25 Post menopausal: No Patient : No : No [facility] Medical History Vaginal delivery Choroid plexus cyst Infertility Surgical History History of hysteroscopy H/O wisdom tooth extraction Family History Father Anxiety Social History adopted: No household members: spouse housing: house number of children: 3 pets and animals: No history of recent travel: Yes sexually active: Yes Smoking Status: Never smoker second hand exposure: No alcohol intake: never substance use type: does not use caffeine: No lorenzo/catholic: Mennonite seatbelt use: always do you feel safe at home: Yes additional social history: Arvind- works at a [employer] History 3 Elective abortions Hx Para 3 Spontaneous abortions Hx # Term Pregnancies Ectopic pregnancies Hx # Pregnancies Multiple births # of living children 3 Past Pregnancies Del. Date Name GA/Weeks Outcome Route Bth Weight Infant Gen Labor Lgth Anesthesia Del Locatn Provider FOB 04/04/19 Beau 39 live - full term 7lbs Male [facility] AMBAR 09/25/20 Israel 39 live - full term Male [facility] Félix 12/08/23 Madi 40 live - full term 8#4 Male [facility] Félix Delivery Date: 04/04/19 Last Updated by: Digna Sampson 2 degree laceration Delivery Date: 09/25/20 Last Updated by: Maria E GREEN Delivery Date: 12/08/23 Last Updated by: Maria E GREEN AMSamina HPI Encounter for routine gynecological examination Details: ALEJANDRA RUSH is a 39 year old who presents for 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she is feeling fatigued, her son is waking her up at night and this may be contributing Last PAP: 05/14/2023 - normal History of abnormal PAP: Last mammogram: due this year - order placed History of abnormal mammogram: Colon cancer screening: not due Other preventative health care screenings: PCP [facility] at [place] Female Reproductive History Last Menstrual Period: 01/23/25 Cycle Length: 21-35 Bleeding Duration: 5 Questions: metorrhagia: No, sexually active: Yes, dyspareunia: No and PCB: No Menopausal Symptoms: No hot flashes, No night sweats, No weight change, No mood changes, No difficulty concentrating, No sleep problems and No change in libido ROS Const Constitutional: Reports as per HPI, fatigue and increased appetite; Denies poor appetite, night sweats, weight gain or weight loss Cardio Card: Denies chest pain Resp Resp: Denies cough or dyspnea GI GI: Reports as per HPI; Denies abdominal pain, bloating, constipation, nausea or vomiting : Reports as per HPI, nipple discharge (breast feeding) and other; Denies difficulty voiding, dysuria, hematuria, hot flashes, pelvic pain, prolapse symptoms, urinary frequency, urinary incontinence, urinary urgency, vaginal discharge, vaginal dryness, vaginal odor or vaginal pruritus Skin Skin/Breast: Reports nipple discharge (breast feeding); Denies changing lesions, breast mass, breast pain or breast skin changes Psych Psych: Reports depression; Denies anxiety, change in libido or difficulty concentrating Exam Const General: cooperative, healthy appearing, comfortable, no acute distress, well developed and well groomed HENCA Head: normal to inspection and normocephalic Ears: hearing grossly normal bilaterally and external ears normal Nose: external nose normal Face and sinus: normal facial exam Neck Neck: normal visual inspection, full ROM and no lymphadenopathy Thyroid: thyroid normal Chest Chest palpation & inspection: normal inspection of the chest Breast inspection: normal inspection of the breasts and normal inspection of theaxillae Breast palpation: normal palpation of the breasts, normal palpation of the axillae and no axillary lymphadenopathy Resp Effort & Inspection: normal respiratory effort GI Inspection: normal to inspection and non-distended Palpation: soft, no hepatosplenomegaly and no guarding General: bladder normal to palpation External Female Exam: normal external appearance, normal appearance of the urethra and no lesions Urethra: normal appearance of the urethra and normal palpation Speculum Exam - Vagina: normal appearance of the vagina and normal vaginal discharge Speculum Exam - Cervix: normal appearance of the cervix, no cervical discharge, no lesions and nontender Bimanual Exam- Vagina & Uterus: normal bimanual exam, uterine size normal, bladder normal to palpation, No tender, uterine mobility normal, consistency normal, non-tender and no cervical motion tenderness Bimanual Exam- Adnexa, other: normal adnexae, no masses and non-tender Skin General: no rashes or lesions noted Neuro General: patient alert, moves all extremities and no focal motor deficits Extrem General: normal to inspection and no pedal edema Psych Appearance: grossly normal Mental Status: mental status grossly normal Affect: normal affect Speech and Movement: speech and movement normal Attitude: cooperative Coding Level of Care Code Off vis,est,prev 18-39yrs Diagnoses Encounter for gynecological examination without abnormal finding Z01.419 Gynecological examination findings: abnormal findings ABSENT Assessment and Plan Assessment and Plan (1) Encounter for routine gynecological examination: Qualifiers: Gynecological examination findings: abnormal findings ABSENT Qualified Code(s): Z01.419 - Encounter for gynecological examination (general) (routine) without abnormal findings Orders: Orders SCRN MAMM (CAD)W/ELGIN BILAT Today Z12.31 - Encounter for screening mammogram for malignant neoplasm of breast Medications: New citalopram 20 mg PO DAILY 30 tabs 12RF Plan Cervical cancer screening: pap hpv up to date Breast cancer screening: mamm ordered ordered celexa other health maintenance examination reviewed and orders placed if needed. Encouraged maintenance of a healthy weight and active lifestyle and handout given. Annual exam handout including recommendations for good health guidelines, Calcium/vitamin D recommendations, and basic screening information given. Problem list up to date, see problem list details for any additional plan information. Follow up in one year for annual health maintenance exam or sooner if needed. 01/26/25 1150 <Electronically signed by Lisa silveira MD> Date _ Lisa Manning Signature: Date (if applicable) CC: ~ [facility] Work Phone: Reason for referral (narrative)No reason for referral information availableKentfield Hospital Work Phone: Summary Purpose Family History No Family History Records Found Relationship Condition Age at Onset Recorded Date/T ghazala father Anxiety Unknown Advance Directives No Advanced Directives Records Found Advance Directive Response Recorded Date/ Time Living Will No March 05, 2023 3 :02pm Power of Rough And Truing Machine Operator No March 05, 2023 3:02pm Advance Directive Response Recorded Date/ Time Living Will No March 05, 2023 2 :02pm Power of Rough And Truing Machine Operator No March 05, 2023 2:02pm Advance Directive Response Recorded Date/ Time Living Will No September 24 3:06pm Power of Rough And Truing Machine Operator No September 24, 2020 3:06pm Advance Directive Response Recorded Date/ Time Living Will No December 08, 2023 8:08am Power of Rough And Truing Machine Operator No December 07 8:08am Chief Complaint and Reason for Visit Chief Complaint NOB LMP 7/10 PAP Reason for Visit AMA (advanced matern al age) multigravida 35+ Rubella non-immune status, antepartum Supervision of high risk , antepartum Chief Complaint NOB LMP 7/10 PAP 14 WK OB 18 WK OB ANATOMY Reason for Visit AMA (advanced matern al age) multigravida 35+ Rubella non-immune status, antepartum Supervision of high risk , antepartum AMA (advanced maternal age) multigravida 35+ Rubella non-immune status, antepartum Supervision of high risk , antepartum AMA (advanced maternal age) multigravida 35+ Rubella non-immune status, antepartum Supervision of high risk , antepartum Chief Complaint ANATOMY 22 WK OB 27 WK OB 30 WK OB 32 WK OB AMA 34 WK OB Reason for Visit AMA (advanced matern al age) multigravida 35+ Choroid plexus cyst Family history of hemophilia Rubella non-immune status, antepartum Supervision of high risk , antepartum AMA (advanced maternal age) multigravida 35+ Choroid plexus cyst Family history of hemophilia Rubella non-immune status, antepartum Supervision of high risk , antepartum AMA (advanced maternal age) multigravida 35+ Choroid plexus cyst Family history of hemophilia Rubella non-immune status, antepartum Supervision of high risk , antepartum AMA (advanced maternal age) multigravida 35+ Choroid plexus cyst Family history of hemophilia Rubella non-immune status, antepartum Supervision of high risk , antepartum AMA (advanced maternal age) multigravida 35+ Choroid plexus cyst Family history of hemophilia Rubella non-immune status, antepartum Supervision of high risk , antepartum Chief Complaint 22 WK OB 27 WK OB 30 WK OB 32 WK OB AMA 34 WK OB 36 WK OB Reason for Visit AMA (advanced matern al age) multigravida 35+ Choroid plexus cyst Family history of hemophilia Rubella non-immune status, antepartum Supervision of high risk , antepartum AMA (advanced maternal age) multigravida 35+ Choroid plexus cyst Family history of hemophilia Rubella non-immune status, antepartum Supervision of high risk , antepartum AMA (advanced maternal age) multigravida 35+ Choroid plexus cyst Family history of hemophilia Rubella non-immune status, antepartum Supervision of high risk , antepartum AMA (advanced maternal age) multigravida 35+ Choroid plexus cyst Family history of hemophilia Rubella non-immune status, antepartum Supervision of high risk , antepartum AMA (advanced maternal age) multigravida 35+ Choroid plexus cyst Family history of hemophilia Rubella non-immune status, antepartum Supervision of high risk , antepartum AMA (advanced maternal age) multigravida 35+ Choroid plexus cyst Family history of hemophilia Rubella non-immune status, antepartum Supervision of high risk , antepartum Chief Complaint 27 WK OB 30 WK OB 32 WK OB AMA 34 WK OB 36 WK OB 37 WK OB 39 WK OB 40 WK OB *happy due date* VAGINAL DELIVERY INDUCTION VAGINAL DELIVERY Reason for Visit AMA (advanced matern al age) multigravida 35+ Choroid plexus cyst Family history of hemophilia Rubella non-immune status, antepartum Supervision of high risk , antepartum AMA (advanced maternal age) multigravida 35+ Choroid plexus cyst Family history of hemophilia Rubella non-immune status, antepartum Supervision of high risk , antepartum AMA (advanced maternal age) multigravida 35+ Choroid plexus cyst Family history of hemophilia Rubella non-immune status, antepartum Supervision of high risk , antepartum AMA (advanced maternal age) multigravida 35+ Choroid plexus cyst Family history of hemophilia Rubella non-immune status, antepartum Supervision of high risk , antepartum AMA (advanced maternal age) multigravida 35+ Choroid plexus cyst Family history of hemophilia Rubella non-immune status, antepartum Supervision of high risk , antepartum AMA (advanced maternal age) multigravida 35+ Choroid plexus cyst Family history of hemophilia Rubella non-immune status, antepartum Supervision of high risk , antepartum AMA (advanced maternal age) multigravida 35+ Choroid plexus cyst Family history of hemophilia Rubella non-immune status, antepartum Supervision of high risk , antepartum AMA (advanced maternal age) multigravida 35+ Choroid plexus cyst Family history of hemophilia Rubella non-immune status, antepartum Supervision of high risk , antepartum Vaginal delivery AMA (advanced maternal age) multigravida 35+ Choroid plexus cyst Family history of hemophilia Rubella non-immune status, antepartum Supervision of high risk , antepartum Chief Complaint Admit Date Annual ([employer]) January 26, 2025 11:00 am Reason for Visit Admit Date Encounter for routine gynecological exam ination January 26, 2025 11:00am Additional Source Comments INFORMATION SOURCE (unrecogn ized section and content) DATE CREATED AUTHOR 02/16/2018 [facility] DATE CREATED AUTHOR AUTHOR'S ORGANIZ ATION 02/19/2018 [facility] ([place]) DATE CREATED AUTHOR AUTHOR[facility]S OR[facility]IZ ATION [facility] Care Teams (unrecognized sec tion and content) Team Status: Active Member Role Status Dates No Primary Care Physician Family Provider Active Aster Ford NP, MOLDING PROCESS TECHNICIAN-C Primary Care Provider Active Team Status: Inactive Member Role Status Dates Aster Ford MOLDING PROCESS TECHNICIAN, MOLDING PROCESS TECHNICIAN-C Primary Care Provider, Referri ng Provider Active Erica Macario CNM Attending Provider Active Team Status: Inactive Member Role Status Dates Aster Ford MOLDING PROCESS TECHNICIAN, MOLDING PROCESS TECHNICIAN-C Primary Care Provider Active Erica Macario CNM Attending Provider, Referring Pro vider Active Team Status: Active Member Role Status Dates Aster Ford MOLDING PROCESS TECHNICIAN, MOLDING PROCESS TECHNICIAN-C Primary Care Provider Active Erica Macario CNM Attending Provider, Referring Pro vider Active Team Status: Inactive Member Role Status Dates Aster Ford MOLDING PROCESS TECHNICIAN, MOLDING PROCESS TECHNICIAN-C Primary Care Provider, Referri ng Provider Active Tyra Hanson CNM Attending Provider Active Team Status: Inactive Member Role Status Dates Aster Ford MOLDING PROCESS TECHNICIAN, MOLDING PROCESS TECHNICIAN-C Primary Care Provider, Referri ng Provider Active Dr. Lissa Wu DO Attending Provider Activ e Team Status: Inactive Member Role Status Dates Aster Ford MOLDING PROCESS TECHNICIAN, MOLDING PROCESS TECHNICIAN-C Primary Care Provider Active Tyra Hanson CNM Attending Provider, Referring Pr ovider Active Team Status: Inactive Member Role Status Dates Aster Ford MOLDING PROCESS TECHNICIAN, MOLDING PROCESS TECHNICIAN-C Primary Care Provider, Referri ng Provider Active Dr. Lisa Heard MD Attending Provider Active Team Status: Inactive Member Role Status Dates Aster Ford MOLDING PROCESS TECHNICIAN, MOLDING PROCESS TECHNICIAN-C Primary Care Provider Active Dr. Lisa Heard MD Attending Provider, Referr ing Provider Active Team Status: Active Member Role Status Dates Aster Ford MOLDING PROCESS TECHNICIAN, MOLDING PROCESS TECHNICIAN-C Primary Care Provider Active Erica Macario CNM Admit Provider, Ref erring Provider, Other Provider Active Dr. Lisa Heard MD Attending Provider Active Team Status: Active Member Role Status Dates Aster Ford MOLDING PROCESS TECHNICIAN, MOLDING PROCESS TECHNICIAN-C Primary Care Provider Active Dr. Lisa Heard MD Admit Provid er, Referring Provider, Other Provider Active Tyra Hanson CNM Attending Provider Active Team Status: Inactive Member Role Status Dates Aster Ford MOLDING PROCESS TECHNICIAN, MOLDING PROCESS TECHNICIAN-C Primary Care Provider Active Dr. Lisa Heard MD Admit Provid er, Attending Provider, Referring Provider Active Team Status: Inactive Member Role Status Dates Aster Ford MOLDING PROCESS TECHNICIAN, MOLDING PROCESS TECHNICIAN-C Primary Care Provider Active Start: January 26, 2025 End: January 26, 2025 Aster Ford MOLDING PROCESS TECHNICIAN, MOLDING PROCESS TECHNICIAN-C Referring Provider Active Start: January 26, 2025 End: January 26, 2025 Dr. Lisa Heard MD Attending Provider Active Start: January 26, 2025 End: January 26, 2025 Team Status: Active Member Role Status Dates Astre Ford NP, MOLDING PROCESS TECHNICIAN-C Primary Care Provider Active Start: January 26, 2025 Dr. Lisa Heard MD Attending Provider Active Start: January 26, 2025 Dr. Lisa Heard MD Referring Provider Active Start: January 26, 2025 Team Status: Inactive Member Role Status Dates Aster Ford NP, MOLDING PROCESS TECHNICIAN-C Primary Care Provider Active Start: January 26, 2025 End: January 26, 2025 Dr. Lisa Heard MD Attending Provider Active Start: January 26, 2025 End: January 26, 2025 Dr. Lisa Heard MD Referring Provider Active Start: January 26, 2025 End: January 26, 2025 Goals (unrecognized section and content) Goals may be documented in a n alternate sectionGoals may be documented in an alternate sectionGoals may be documented in an alternate sectionGoals may be documented in an alternate sectionGoals may be documented in an alternate sectionGoals may be documented in an alternate sectionGoals may be documented in an alternate section FOR RECORDS PERTAINING TO PATIENTS WHO ARE [...] BE BASED ON THE PRIMARY CLINICAL RECORDS. [employer] provides no warranty or guarantee of the accuracy or completeness of information in this document.
--- OUTSIDE RECORDS SUMMARY | 2025-06-21 10:42 | XMS RPT_ITS | CCD ---
Author Organization [facility] Care Team Providers Care Passenger Solicitor Name Role Phone CAMILO JAMES Unavailable Unavailable CAMILO JAMES Unavailable Unavailable CAMILO JAMES Unavailable Unavailable ASTER FORD Unavailable Unavailable ASTER FORD Unavailable Unavailable [place] SATURATION EQUIPMENT OPERATOR, SATURATION EQUIPMENT OPERATOR-C Aster Primary Care Provider [place] SATURATION EQUIPMENT OPERATOR, SATURATION EQUIPMENT OPERATOR-C Aster Referring Provider 1(330 ) SANDHYA Macario Attending Provider 1(330) [place] SATURATION EQUIPMENT OPERATOR, SATURATION EQUIPMENT OPERATOR-C Aster Primary Care Provider [place] SATURATION EQUIPMENT OPERATOR, SATURATION EQUIPMENT OPERATOR-C Aster Referring Provider 1(330 ) SANDHYA Macario Attending Provider 1(330) SANDHYA Hanson Attending Provider 1(330) Dr. Lissa Wu Attending Provider [phone] [place] SATURATION EQUIPMENT OPERATOR, SATURATION EQUIPMENT OPERATOR-C Aster Primary Care Provider [phone] [place] SATURATION EQUIPMENT OPERATOR, SATURATION EQUIPMENT OPERATOR-C Aster Referring Provider 1(330 ) Dr. Lisa Heard Attending Provider 1(330 ) SANDHYA Macario Attending Provider 1(330) Dr. Lissa Wu Attending Provider [phone] Matty SATURATION EQUIPMENT OPERATOR, SATURATION EQUIPMENT OPERATOR-C Aster Primary Care Provider [place] SATURATION EQUIPMENT OPERATOR, SATURATION EQUIPMENT OPERATOR-C Aster Referring Provider 1(330 ) Dr. Lisa Heard Attending Provider 1(330 ) SANDHYA Macario Admit Provider 1(330) SANDHYA Macario Referring Provider 1(330) SANDHYA Macario Other Provider 1(330) Dr. Lisa Heard Admit Provider [phone] Dr. Lisa Heard Referring Provider [phone] Dr. Lisa Heard Other Provider [phone] SANDHYA Hanson Attending Provider [phone] Matty SATURATION EQUIPMENT OPERATOR-C, [place] Primary Care Provider [phone] Matty SATURATION EQUIPMENT OPERATOR-C, Aster Referring Provider [phone] Félix SERVIN, Dr. Gonzalez Attending Provider Dr. Lisa Heard MD Referring Provider [phone] Lisa Heard Attending Unavailable Matty SATURATION EQUIPMENT OPERATOR, [place] Primary Care Unavailable Matty SATURATION EQUIPMENT OPERATOR, Aster Referring Unavailable Lisa Heard Attending Unavailable Lisa Heard Referring Unavailable Matty SATURATION EQUIPMENT OPERATOR, [place] Primary Care Unavailable Lisa Heard Attending Unavailable Lisa Heard Referring Unavailable Matty SATURATION EQUIPMENT OPERATOR, [facility] Care Unavailable Medications Current Medications Medication Drug Class(es) Dates Sig (Normalized) Sig (Original) citalopram 20 mg oral tablet (2 sources) Serotonin Reuptake Inhibitor Start: 01-26-2025 take 1 tablet by mouth once daily Citalopram 20 mg tablet Active 20 mg PO DAILY January 26, 2025 12:00am Pnv #98-Oerz-Sqsly Acid-Omega3 30 mg iron-10 mg iron-1 mg capsule (2 sources) Start: 03-02-2019 Pnv #71-Nqze-Smmaw Acid-Omega3 30 mg iron-10 mg iron-1 mg capsule Active 1 NMA PO DAILY March 02, 2019 12:00am vitamin#30 30 mg iron-10 mg iron-folic acid 1 mg-omg3 capsule (6 sources) Start: 03-02-2019 take 1 capsule by mouth once daily vitamin#30 30 mg iron-10 mg iron-folic acid 1 mg-omg3 capsule Active 1 CAP PO DAILY March 01, 2019 11:00pm Start: 03-02-2019 take 1 capsule by [facility] once daily vitamin#30 30 mg iron-10 mg [...] Auto (Unsp spec) [#/Vol] 1.50 10*3/uL 0.83-4.51 [facility] Absolute neutrophil countOrd ered By: Lisa Heard on 01-26-2025 Neutrophils (Bld) [#/Vol] 3.3 10*3/uL 2.0-7.7 [facility] Automated lymphocyte count a s percentage of total leukocytesOrdered By: Lisa Heard on 01-26-2025 Lymphocytes/100 WBC Auto (Unsp spec) 28.0 % 19-41 [facility] Basophil percentageOrdered B y: Lisa Heard on 01-26-2025 Basophils/100 WBC (Bld) 0.7 % 0-1 [facility] CBC W/Diff, Automatedon 12-30 Absolute Lymph 1.50 X10 3/uL Normal 0.83-4.51 [facility] Comment on above: Performed By: #### L 501.9520, L100.0100 #### [facility] [address] [place], [address] Absolute Neut 3.3 X10 3/uL Normal 2.0-7.7 [facility] Comment on above: Performed By: #### L 501.9520, L100.0100 #### [facility] [address] [facility] [place], [address] Basophils/100 WBC (Bld) 0.7 % Normal 0-1 [facility] Comment on above: Performed By: #### L 501.9520, L100.0100 #### [facility] [address] [facility] [place], [address] Eosinophils/100 WBC (Bld) 2.4 % Normal 0-5 [facility] Comment on above: Performed By: #### L 501.9520, L100.0100 #### [facility] [address] [place], [address] Erythrocyte distribution width (RBC) [Ratio] 12.4 % Normal 11.6-14.6 [facility] Comment on above: Performed By: #### L 501.9520, L100.0100 #### [facility] [address] [place], [address] Hematocrit (Bld) [Volume fraction] 41.1 % Normal 37-47 [facility] Comment on above: Performed By: #### L 501.9520, L100.0100 #### [facility] [address] [place], [address] Hemoglobin (Bld) [Mass/Vol] 13.6 g/dL Normal 12.0-15.0 [facility] Comment on above: Performed By: #### L 501.9520, L100.0100 #### [facility] [address] [place], [address] IG% 0.400 Normal 0.0-0.9 [facility] Comment on above: Result Comment: IG% - Immature Granulocytes (promyelocytes, myelocytes and metamyelocytes) > 1% indicates that a LEFT SHIFT is Present. Performed By: #### L 501.9520, L100.0100 #### [facility] [address] [place], [address] Lymphocytes/100 WBC (Bld) 28.0 % Normal 19-41 [facility] Comment on above: Performed By: #### L [id number], L100.0100 #### [facility] [address] [place], [address] MCH (RBC) [Entitic mass] 29.8 pg Normal 27.0-32.0 [facility] Comment on above: Performed By: #### L [id number], L100.0100 #### [facility] [address] [place], [address] MCHC (RBC) [Mass/Vol] 33.1 g/dL Normal 32-36 [facility] Comment on above: Performed By: #### L [id number], L100.0100 #### [facility] [address] [place], [address] MCV (RBC) [Entitic vol] 90.1 fL Normal 81-99 [facility] Comment on above: Performed By: #### L [id number], L100.0100 #### [facility] [address] [place], [address] Monocytes/100 WBC (Bld) 7.5 % Normal 0-10 [facility] Comment on above: Performed By: #### L 501.95, L100.0100 #### [facility] [address] [place], [address] Neutrophils/100 WBC (Bld) 61.0 % Normal 47-70 [facility] Comment on above: Performed By: #### L 501.9519, L100.0100 #### [facility] [address] [place], [address] Nucleated RBC (Bld) [#/Vol] 0 10*3/uL Normal 0-5 [facility] Comment on above: Performed By: #### L [id number], L100.0100 #### [facility] [address] [place], [address] Platelet mean volume (Bld) [Entitic vol] 8.8 fL Normal 6.2-12.0 [facility] Comment on above: Performed By: #### L 501.9520, L100.0100 #### [facility] [address] [place], [address] Platelets (Bld) [#/Vol] 324 10*3/uL Normal 150-450 [facility] Comment on above: Performed By: #### L 501.9520, L100.0100 #### [facility] [address] [place], [address] RBC (Bld) [#/Vol] 4.56 10*6/uL Normal 4.2-5.4 [facility] Comment on above: Performed By: #### L [id number], L100.0100 #### [facility] [address] [place], [address] RDW SD 40.6 fl Normal 35.1-43.9 [facility] Comment on above: Performed By: #### L 501.9520, L100.0100 #### [facility] [address] [place], [address] WBC (Bld) [#/Vol] 5.4 10*3/uL Normal 4.4-11.0 [facility] Comment on above: Performed By: #### L 501.9520, L100.0100 #### [facility] [address] [place], [address] Eosinophil percentageOrdered By: Lisa Heard on 01-26-2025 Eosinophils/100 WBC (Bld) 2.4 % 0-5 [facility] Erythrocyte distribution wid th ratioOrdered By: Lisa Heard on 01-26-2025 Erythrocyte distribution width (RBC) [Ratio] 12.4 % 11.6-14.6 [facility] Erythrocyte distribution wid th standard deviationOrdered By: Lisa Heard on 01-26-2025 Erythrocyte distribution width (RBC) [Ratio] 40.6 fl 35.1-43.9 [facility] Hematocrit Auto (Bld) [Volum e fraction]Ordered By: Lisa Heard on 01-26-2025 Hematocrit (Bld) [Volume fraction] 41.1 % 37-47 [facility] Hemoglobin measurementOrdere d By: Lisa Heard on 01-26-2025 Hemoglobin (Bld) [Mass/Vol] 13.6 g/dL 12.0-15.0 [facility] Immature granulocytes/100 WB C Auto (Bld)Ordered By: Lias Heard on 01-26-2025 Immature granulocytes/100 WBC (Bld) 0.400 % 0.0-0.9 [facility] Comment on above: IG% - Immature Granu locytes (promyelocytes, myelocytes and metamyelocytes) > 1% indicates that a LEFT SHIFT is Present. MCV (mean corpuscular volume ) determinationOrdered By: Lisa Heard on 01-26-2025 MCV (RBC) [Entitic vol] 90.1 fL 81-99 [facility] Mean corpuscular hemoglobin (MCH) determinationOrdered By: Lisa Heard on 01-26-2025 MCH (RBC) [Entitic mass] 29.8 pg 27.0-32.0 [facility] Mean corpuscular hemoglobin concentration (MCHC) determinationOrdered By: Lisa Heard on 01-26-2025 MCHC (RBC) [Mass/Vol] 33.1 g/dL 32-36 [facility] Mean platelet volume determi nationOrdered By: Lisa Heard on 01-26-2025 Platelet mean volume (Bld) [Entitic vol] 8.8 fL 6.2-12.0 [facility] Monocyte percentageOrdered B y: Lisa Heard on 01-26-2025 Monocytes/100 WBC (Bld) 7.5 % 0-10 [facility] Neutrophil percentageOrdered By: Lisa Heard on 01-26-2025 Neutrophils/100 WBC (Bld) 61.0 % 47-70 [facility] Nucleated red blood cell per centageOrdered By: Lisa Heard on 01-26-2025 Nucleated RBC/100 WBC (Bld) [Ratio] 0 % 0-5 [facility] Office Runner Office Visit Reporton 01-26-2025 Office Runner Office Visit Report [facility]'[address], [address] [place] [address] OFFICE VISIT Date of Service: 01/26/25 MR#: [id number] Acct: [id number] Name: ALEJANDRA RUSH Rep #: [id number] : 1985 Provider: Dr. 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 Date Name GA/Weeks Outcome Route Bth Weight Gen Labor Lgth Anesthesia Del Locatn Provider FOB 04/04/19 Beau 39 live - full term 7lbs Male [facility] AMBAR 09/25/20 Israel 39 live - full term Male [facility] Uriel nya 12/08/23 Madi 40 live - full term 8#[address] [facility] Uriel fay Delivery Date: 04/04/19 Last Updated [...] preventative health care screenings: PCP [facility] Female Reproductive History Last Menstrual Period: 01/23/25 [...] acute distress, well developed and well groomed [facility] Head: normal to inspection and normocephalic Ears: hearing grossly normal bilaterally and external ears normal Nose: external nose normal Face and sinus: normal facial exam Neck Neck: normal visual inspection, full ROM and no lymphadenopathy Thyroid: thyroid normal Chest Chest palpation inspection: normal inspecti (more content not included)... Normal [facility] Platelet countOrdered By: Vivi Heard on 01-26-2025 Platelets (Bld) [#/Vol] 324 10*3/uL 150-450 [facility] RBC Auto (Bld) [#/Vol]Ordere d By: Lisa Heard on 01-26-2025 RBC (Bld) [#/Vol] 4.56 10*6/uL 4.2-5.4 [facility] TSH DL <= 0.005 mIU/L QnOrde red By: Lisa Heard on 01-26-2025 TSH Qn 0.963 uIU/mL 0.300-4.200 [facility] Thyroid Stim Hormone (TSH)on 01-26-2025 TSH 0.963 uIU/mL Normal 0.300-4.200 [facility] Comment on above: Performed By: #### L 501.9520, L100.0100 #### [facility] [address] [place], [place], [id number] White blood cell (WBC) count Ordered By: Lisa Heard on 01-26-2025 WBC (Bld) [#/Vol] 5.4 10*3/uL 4.4-11.0 [facility] Absolute lymphocyte countOrd ered By: Lisa Heard on 12-08-2023 Lymphocytes Auto (Unsp spec) [#/Vol] 1.70 10*3/uL 0.83-4.51 [facility] Automated lymphocyte count a s percentage of total leukocytesOrdered By: Lisa Heard on 12-08-2023 Lymphocytes/100 WBC Auto (Unsp spec) 17.9 % 19-41 [facility] Basophil percentageOrdered B y: Lisa Heard on 12-08-2023 Basophils/100 WBC (Bld) 0.3 % 0-1 [facility] Eosinophils/100 WBC (Bld) 1.9 % 0-5 [facility] Hemoglobin (Bld) [Mass/Vol] 11.7 g/dL 12.0-15.0 [facility] Monocytes/100 WBC (Bld) 6.3 % 0-10 [facility] Neutrophils (Bld) [#/Vol] 6.9 10*3/uL 2.0-7.7 [facility] Neutrophils/100 WBC (Bld) 73.1 % 47-70 [facility] WBC (Bld) [#/Vol] 9.5 10*3/uL 4.4-11.0 [facility] Determination of erythrocyte mean corpuscular volume (MCV)Ordered By: Lisa Heard on 12-08-2023 MCV (RBC) [Entitic vol] 89.9 fL 81-99 [facility] Erythrocyte distribution wid th ratioOrdered By: Lisa Heard on 12-08-2023 Erythrocyte distribution width (RBC) [Ratio] 13.3 % 11.6-14.6 [facility] Erythrocyte distribution wid th standard deviationOrdered By: Lisa Heard on 12-08-2023 Erythrocyte distribution width (RBC) [Entitic vol] 43.8 fL 35.1-43.9 [facility] Hematocrit Auto (Bld) [Volum e fraction]Ordered By: Lisa Heard on 12-08-2023 Hematocrit (Bld) [Volume fraction] 35.5 % 37-47 [facility] Immature granulocytes/100 WB C Auto (Bld)Ordered By: Lisa Heard on 12-08-2023 Immature granulocytes/100 WBC (Bld) 0.500 % 0.0-0.9 [facility] Comment on above: IG% - Immature Granu locytes (promyelocytes, myelocytes and metamyelocytes) > 1% indicates that a LEFT SHIFT is Present. Laboratory - Hematology and Cell countsOrdered By: Lisa Heard on 12-08-2023 MCH (RBC) [Entitic mass] 29.6 pg 27.0-32.0 [facility] MCHC (RBC) [Mass/Vol] 33.0 g/dL 32-36 [facility] Nucleated RBC/100 WBC (Bld) [Ratio] 0 % 0-5 [facility] Platelet mean volume (Bld) [Entitic vol] 9.3 fL 6.2-12.0 [facility] Platelets (Bld) [#/Vol] 286 10*3/uL 150-450 [facility] RBC Auto (Bld) [#/Vol]Ordere d By: Lisa Heard on 12-08-2023 RBC (Bld) [#/Vol] 3.95 10*6/uL 4.2-5.4 [facility] Serum Treponema species anti body detectionOrdered By: Lisa Heard on 12-08-2023 Treponema sp Ab Ql (S) Non-Reactive [facility] - Chemistry and C hemistry - challengeon 11-24-2023 Glucose Ql (U) Negative [facility] - Urinalysison Protein Ql (U) Negative [facility] No Panel InformationOrdered By: Erica Macario on 11-17-2023 Group B Streptococcus Culture Group B Beta Streptococcus is not isolated. [facility] - Chemistry and C hemistry - challengeon 11-05-2023 Glucose Ql (U) Negative [facility] - Urinalysison Protein Ql (U) Negative [facility] - Chemistry and C hemistry - challengeon 10-21-2023 Glucose Ql (U) Negative [facility] - Urinalysison Protein Ql (U) Negative [facility] - Chemistry and C hemistry - challengeon 10-05-2023 Glucose Ql (U) Negative [facility] - Urinalysison Protein Ql (U) Negative [facility] Absolute lymphocyte countOrd ered By: Lisa Heard on 09-11-2023 Lymphocytes Auto (Unsp spec) [#/Vol] 1.83 10*3/uL 0.83-4.51 [facility] Basophil percentageOrdered B y: Lisa Heard on 09-11-2023 Basophils/100 WBC (Bld) 0.2 % 0-1 [facility] Eosinophils/100 WBC (Bld) 1.3 % 0-5 [facility] Neutrophils (Bld) [#/Vol] 7.4 10*3/uL 2.0-7.7 [facility] Neutrophils/100 WBC (Bld) 74.9 % 47-70 [facility] WBC (Bld) [#/Vol] 9.9 10*3/uL 4.4-11.0 [facility] Blood erythrocytes count (nu mber/volume)Ordered By: Lisa Heard on 09-11-2023 RBC (Bld) [#/Vol] 3.77 10*6/uL 4.2-5.4 [facility] Blood hemoglobin measurement (mass/volume)Ordered By: Lisa Heard on 09-11-2023 Hemoglobin (Bld) [Mass/Vol] 11.6 g/dL 12.0-15.0 [facility] Blood lymphocytes/100 leukoc ytesOrdered By: Lisa Heard on 09-11-2023 Lymphocytes/100 WBC (Bld) 18.5 % 19-41 [facility] Blood monocytes/100 leukocyt esOrdered By: Lisa Heard on 09-11-2023 Monocytes/100 WBC (Bld) 4.8 % 0-10 [facility] Blood platelet mean volumeOr dered By: Lisa Heard on 09-11-2023 Platelet mean volume (Bld) [Entitic vol] 8.8 fL 6.2-12.0 [facility] Determination of erythrocyte mean corpuscular volume (MCV)Ordered By: Lisa Heard on 09-11-2023 MCV (RBC) [Entitic vol] 91.5 fL 81-99 [facility] Gestational diabetes screen 1-hour screen with 50g oral glucose loadOrdered By: Lisa Heard on 09-11-2023 Glucose 1 Hr post 50 g glucose PO [Mass/Vol] 129 mg/dL 70-140 [facility] HIV 1 and HIV-2 antibody ass ay with HIV-1 p24 antigen detectionOrdered By: Lisa Heard on 09-11-2023 HIV 1+2 Ab+HIV1 p24 Ag IA Ql Non-Reactive Nonreactive [facility] Hematocrit Auto (Bld) [Volum e fraction]Ordered By: Lisa Heard on 09-11-2023 Hematocrit (Bld) [Volume fraction] 34.5 % 37-47 [facility] - Chemistry and C hemistry - challengeon 09-11-2023 Glucose Ql (U) Negative [facility] - Hematology and Cell countsOrdered By: Lisa Heard on 09-11-2023 Erythrocyte distribution width (RBC) [Entitic vol] 44.0 fL 35.1-43.9 [facility] Erythrocyte distribution width (RBC) [Ratio] 13.3 % 11.6-14.6 [facility] Immature granulocytes/100 WBC (Bld) 0.300 % 0.0-0.9 [facility] Comment on above: IG% - Immature Granu locytes (promyelocytes, myelocytes and metamyelocytes) > 1% indicates that a LEFT SHIFT is Present. MCH (RBC) [Entitic mass] 30.8 pg 27.0-32.0 [facility] Nucleated RBC/100 WBC (Bld) [Ratio] 0 % 0-5 [facility] - Urinalysison Protein Ql (U) Negative [facility] MCHC Auto (RBC) [Mass/Vol]Or dered By: Lisa Heard on 09-11-2023 MCHC (RBC) [Mass/Vol] 33.6 g/dL 32-36 [facility] Platelets bldOrdered By: Savage Heard on 09-11-2023 Platelets (Bld) [#/Vol] 294 10*3/uL 150-450 [facility] Serum Treponema species anti body detectionOrdered By: Lisa Heard on 09-11-2023 Treponema sp Ab Ql (S) Non-Reactive [facility] - Chemistry and C hemistry - challengeon 07-08-2023 Glucose Ql (U) Negative [facility] - Urinalysison Protein Ql (U) Negative [facility] - Chemistry and C hemistry - challengeon 06-11-2023 Glucose Ql (U) Negative [facility] - Urinalysison Protein Ql (U) Trace [facility] Absolute lymphocyte countOrd ered By: Erica Macaroi on 05-14-2023 Lymphocytes Auto (Unsp spec) [#/Vol] 2.15 10*3/uL 0.83-4.51 [facility] Basophil percentageOrdered B y: Erica Macario on 05-14-2023 Basophils/100 WBC (Bld) 0.4 % 0-1 [facility] Eosinophils/100 WBC (Bld) 2.7 % 0-5 [facility] Neutrophils (Bld) [#/Vol] 6.8 10*3/uL 2.0-7.7 [facility] Neutrophils/100 WBC (Bld) 68.5 % 47-70 [facility] WBC (Bld) [#/Vol] 9.9 10*3/uL 4.4-11.0 [facility] Blood erythrocytes count (nu mber/volume)Ordered By: Erica Macario on 05-14-2023 RBC (Bld) [#/Vol] 4.35 10*6/uL 4.2-5.4 [facility] Blood hemoglobin measurement (mass/volume)Ordered By: Erica Macario on 05-14-2023 Hemoglobin (Bld) [Mass/Vol] 12.8 g/dL 12.0-15.0 [facility] Blood lymphocytes/100 leukoc ytesOrdered By: Erica Macario on 05-14-2023 Lymphocytes/100 WBC (Bld) 21.6 % 19-41 [facility] Blood monocytes/100 leukocyt esOrdered By: Erica Macario on 05-14-2023 Monocytes/100 WBC (Bld) 6.6 % 0-10 [facility] Blood platelet mean volumeOr dered By: Erica Macario on 05-14-2023 Platelet mean volume (Bld) [Entitic vol] 8.7 fL 6.2-12.0 [facility] Cervical or vagninal specime n microscopic examination by cytology stain (reported asOrdered By: Erica Macario on 05-14-2023 Cytology report Cyto stain Doc (Cvx/Vag) Comment . [facility] Comment on above: The Pap smear [...] rRNA ANDREA+probe Ql (Unsp spec) Negative Negative [facility] Culture, urineOrdered By: Trell Macario on 05-14-2023 Bacteria identified Cx Nom (U) Mixed Gram Pos & Gram Neg Org [facility] Bacteria identified Cx Nom (U) Mixed Gram Pos & Gram Neg Org [facility] Detection in cervical specim en of any of human papilloma virus (HPV) 16, 18, 31, 33,Ordered By: Erica Macario on 05-14-2023 HPV 16+18+31+33+35+39+45+51+5 2+56+58+59+66+68 DNA Probe+sig amp Ql (Cvx) Negative Negative [facility] Comment on above: This nucleic acid am plification test detects fourteen high-risk HPV types (16,18,31,33,35,39,45,51,52,56,58,59,66,68)without differentiation. Determination of erythrocyte mean corpuscular volume (MCV)Ordered By: Erica Macario on 05-14-2023 MCV (RBC) [Entitic vol] 90.1 fL 81-99 [facility] HIV 1 and HIV-2 antibody ass ay with HIV-1 p24 antigen detectionOrdered By: Erica Macario on 05-14-2023 HIV 1+2 Ab+HIV1 p24 Ag IA Ql Non-Reactive Nonreactive [facility] Hematocrit Auto (Bld) [Volum e fraction]Ordered By: Erica Macario on 05-14-2023 Hematocrit (Bld) [Volume fraction] 39.2 % 37-47 [facility] - CytologyOrdered By: Erica Macario on 05-14-2023 Braille Proofreader Cyto stain Nom (Cvx/Vag) [ID] Comment . [facility] Comment on above: Bret Alfaro totechnologist (ASCP) Laboratory - Hematology and Cell countsOrdered By: Erica Macario on 05-14-2023 Erythrocyte distribution width (RBC) [Entitic vol] 39.5 fL 35.1-43.9 [facility] Erythrocyte distribution width (RBC) [Ratio] 12.0 % 11.6-14.6 [facility] Immature granulocytes/100 WBC (Bld) 0.200 % 0.0-0.9 [facility] Comment on above: IG% - Immature Granu locytes (promyelocytes, myelocytes and metamyelocytes) > 1% indicates that a LEFT SHIFT is Present. MCH (RBC) [Entitic mass] 29.4 pg 27.0-32.0 [facility] Nucleated RBC/100 WBC (Bld) [Ratio] 0 % 0-5 [facility] - Microbiology an d Antimicrobial susceptibilityOrdered By: Erica Macario on 05-14-2023 N. gonorrhoeae DNA ANDREA+probe Ql (Unsp spec) Negative Negative [facility] Comment on above: Performed at: =G - [facility] [address] [id number] Director: Latricia Hayes MD, Phone: [phone] Laboratory - Miscellaneous t estsOrdered By: Erica Macario on 05-14-2023 Service comment (Unsp spec) [Interp] Comment . [facility] Comment on above: This liquid based Th inPrep(R) pap test was screened withthe use of an image guided system. Service comment (Unsp spec) [Interp] . . [facility] Liquid-based cerv Pap + CT/G C by ANDREA w reflex to high-risk HPV for ASCUSOrdered By: Erica Macario on 05-14-2023 Cytology report Cyto stain.thin prep Doc (Cvx/Vag) Comment . [facility] Comment on above: Criteria not met, HP V Genotype not performed.Performed at: - [facility] [address] [id number] Director: Latricia Hayes MD, Phone: [phone] at: =G - [facility] [address] [id number] Director: Latricia Hayes MD, Phone: [phone] MCHC Auto (RBC) [Mass/Vol]Or dered By: Erica Macario on 05-14-2023 MCHC (RBC) [Mass/Vol] 32.7 g/dL 32-36 [facility] No Panel InformationOrdered By: Erica Macario on 05-14-2023 Pathology report final diagnosis Narrative Comment . [facility] Comment on above: NEGATIVE FOR INTRAEP ITHELIAL LESION OR MALIGNANCY. Hepatitis B Surface Antigen Non-Reactive Nonreactive [facility] Hepatitis C Antibody Non-Reactive Nonreactive [facility] Comment on above: Non Reactive: < 0.8 Equivocal: >/= 0.8 to < 1.0 Reactive: >/= 1.0The CDC recommends that a reactive/equivocal HCV antibody result be followed up by the HCV Nucleic Acid Amplificationtest ([id number]) Rubella IgG Antibody Equiv Nonreactive [facility] Comment on above: Antibody Results Int erpretation of Immune Status Non Reactive Presumed Non-Immune Equivocal Equivocal Reactive Presumed Immune Platelets bldOrdered By: Bob Macario on 05-14-2023 Platelets (Bld) [#/Vol] 362 10*3/uL 150-450 [facility] Serum Treponema species anti body detectionOrdered By: Erica Macario on 05-14-2023 Treponema sp Ab Ql (S) Non-Reactive [facility] XR Injection Hysterosalpingo graphyon 02-02-2018 XR Injection Hysterosalpingography Fluoro Time Indication: Infertility 0.6 minutes of fluoro was provided to Dr. James. Read by: Approved by: ZULEYKA SCHMITZ MD Date: 02/02/2018 10:21 AM [facility] HPVon 11-18-2017 HPV Interp Normal See Interp HPVN [facility] [place] Comment on above: Order Comment: Order placed by AP_HPV_ORDER rule from [id number] Result Comment: High Risk HPV Typing: NEGATIVEHPV [...] Interp HPVN Performed By: #### H PV ####[place] [address] HPV Source Cervix Normal [facility] [place] Comment on above: Order Comment: Order placed by AP_HPV_ORDER rule from [id number] Performed By: #### H PV ####[place] [address] Longitudinal Float Operator Cytology Reporton 2017 Longitudinal Float Operator Cytology Report . Pathology ReportsAccession: Collected Date/Time: Received Date/Time: Pathologist:[id number] 11/11/2017 15:30 EDT 11/11/2017 18:00 EDT Longitudinal Float Operator Cytology ReportSPECIMEN:Specime n Description: Liquid Prep w/ HPVSpecimen: Cervical/EndocervicalS creening or Diagnostic: ScreeningRELEVANT HISTORY:LMP: [id number] ADEQUACY:SATISFACTORY FOR EVALUATIONENDOCERVICAL /TRANSFORMATIONAL ZONE COMPONENT PRESENTINTERPRETATION/ RESULTS:NEGATIVE FOR INTRAEPITHELIAL LESION OR MALIGNANCYADJUNCTIVE TESTING:HIGH RISK HPV DNA TESTING ORDERED, REPORT TO FOLLOW UNDER SEPARATE COVERElectronically Signed byPathology report verified by [facility].Screened by: KSElectronically signed by Marely WAKEFIELD (ASCP)Sign-Out Date: 11/13/2017 15:19Performing Lab: [address]DisclaimerThe Pap test is a screening test for cervical cancer. As evidenced by published data, it is subject to both inherent false negative and false positive results. Your patient's results should be interpreted in context with pertinent clinical history including gynecological examination. Normal [facility] [place] Comment on above: Performed By: #### G YCR ####[place] [address] TSHon 11-11-2017 Thyroid stimulating hormone (TSH) 1.52 mcIU/mL Normal 0.27-4.20 [facility] [place] Comment on above: Performed By: #### T ####[address] [place], [place] [address] Vital Signs Date Time Vital Sign Value Performing Clinician Teresa christianson 01-26-2025 11:12-0400 Body height 167.64 cm Aster HUANG Work Phone: [facility] 01-26-2025 11:12-0400 Body mass index (BMI) [Ratio] 25.9 kg/m2 Aster Ford SATURATION EQUIPMENT OPERATOR-C Work Phone: [facility] 01-26-2025 11:12-0400 Body weight 73.02 kg Aster Ford SATURATION EQUIPMENT OPERATOR-C Work Phone: [facility] 01-26-2025 11:12-0400 Diastolic blood pressure 80 mm[Hg] Aster Ford SATURATION EQUIPMENT OPERATOR-C Work Phone: [facility] 01-26-2025 11:12-0400 Systolic blood pressure 122 mm[Hg] Aster Ford SATURATION EQUIPMENT OPERATOR-C Work Phone: [facility] 12-09-2023 15:20-0400 Heart rate 83 /min SATURATION EQUIPMENT OPERATOR-C Aster Ford SATURATION EQUIPMENT OPERATOR Work Phone: [facility] 12-09-2023 15:20-0400 SaO2% (BldA) [Mass fraction] 96 % SATURATION EQUIPMENT OPERATOR-C Aster Ford SATURATION EQUIPMENT OPERATOR Work Phone: [facility] 12-09-2023 15:18-0400 Diastolic blood pressure 67 mm[Hg] SATURATION EQUIPMENT OPERATOR-C Aster Ford SATURATION EQUIPMENT OPERATOR Work Phone: [facility] 12-09-2023 15:18-0400 Systolic blood pressure 116 mm[Hg] SATURATION EQUIPMENT OPERATOR-C Aster Ford SATURATION EQUIPMENT OPERATOR Work Phone: [facility] 12-09-2023 15:17-0400 Body temperature 97.9 [degF] SATURATION EQUIPMENT OPERATOR-C Aster Ford SATURATION EQUIPMENT OPERATOR Work Phone: [facility] 12-09-2023 15:17-0400 Respiratory rate 15 /min SATURATION EQUIPMENT OPERATOR-C Aster Ford SATURATION EQUIPMENT OPERATOR Work Phone: [facility] 12-08-2023 07:45-0400 Body height 168 cm SATURATION EQUIPMENT OPERATOR-C Aster Ford SATURATION EQUIPMENT OPERATOR Work Phone: [facility] 12-08-2023 07:45-0400 Body mass index (BMI) [Ratio] 28.8 kg/m2 SATURATION EQUIPMENT OPERATOR-C Aster Fodr SATURATION EQUIPMENT OPERATOR Work Phone: [facility] 12-08-2023 07:45-0400 Body weight 81.3 kg SATURATION EQUIPMENT OPERATOR-C Aster Ford SATURATION EQUIPMENT OPERATOR Work Phone: [facility] 12-07-2023 11:09-0400 Body mass index (BMI) [Ratio] 28.8 kg/m2 SATURATION EQUIPMENT OPERATOR-C Aster Lorson SATURATION EQUIPMENT OPERATOR Work Phone: [facility] 12-07-2023 11:09-0400 Body weight 81.19 kg SATURATION EQUIPMENT OPERATOR-C Aster Lorson SATURATION EQUIPMENT OPERATOR Work Phone: [facility] 12-07-2023 11:09-0400 Diastolic blood pressure 89 mm[Hg] SATURATION EQUIPMENT OPERATOR-C Asterfreddie Ford SATURATION EQUIPMENT OPERATOR Work Phone: [facility] 12-07-2023 11:09-0400 Systolic blood pressure 130 mm[Hg] SATURATION EQUIPMENT OPERATOR-C Aster Valentinoson SATURATION EQUIPMENT OPERATOR Work Phone: [facility] 12-03-2023 10:52-0400 Body mass index (BMI) [Ratio] 28.5 kg/m2 SATURATION EQUIPMENT OPERATOR-C Aster Ford SATURATION EQUIPMENT OPERATOR Work Phone: [facility] 12-03-2023 10:52-0400 Body weight 80.28 kg SATURATION EQUIPMENT OPERATOR-C Aster Ford SATURATION EQUIPMENT OPERATOR Work Phone: [facility] 12-03-2023 10:52-0400 Diastolic blood pressure 80 mm[Hg] SATURATION EQUIPMENT OPERATOR-C Aster Ford SATURATION EQUIPMENT OPERATOR Work Phone: [facility] 12-03-2023 10:52-0400 Systolic blood pressure 115 mm[Hg] SATURATION EQUIPMENT OPERATOR-C Aster Ford SATURATION EQUIPMENT OPERATOR Work Phone: [facility] 11-24-2023 10:23-0400 Body mass index (BMI) [Ratio] 28.7 kg/m2 SATURATION EQUIPMENT OPERATOR-C Aster Lorson SATURATION EQUIPMENT OPERATOR Work Phone: [facility] 11-24-2023 10:23-0400 Body weight 80.73 kg SATURATION EQUIPMENT OPERATOR-C Aster Ford SATURATION EQUIPMENT OPERATOR Work Phone: [facility] 11-24-2023 10:23-0400 Diastolic blood pressure 78 mm[Hg] SATURATION EQUIPMENT OPERATOR-C Aster Ford SATURATION EQUIPMENT OPERATOR Work Phone: [facility] 11-24-2023 10:23-0400 Systolic blood pressure 112 mm[Hg] SATURATION EQUIPMENT OPERATOR-C Aster Lorson SATURATION EQUIPMENT OPERATOR Work Phone: [facility] 11-17-2023 10:22-0400 Body height 167.64 cm SATURATION EQUIPMENT OPERATOR-C Aster Ford SATURATION EQUIPMENT OPERATOR Work Phone: [facility] 11-17-2023 10:22-0400 Body mass index (BMI) [Ratio] 28.7 kg/m2 SATURATION EQUIPMENT OPERATOR-C Aster Ford SATURATION EQUIPMENT OPERATOR Work Phone: [facility] 11-17-2023 10:22-0400 Body weight 80.79 kg SATURATION EQUIPMENT OPERATOR-C Aster Ford SATURATION EQUIPMENT OPERATOR Work Phone: [facility] 11-17-2023 10:22-0400 Diastolic blood pressure 76 mm[Hg] SATURATION EQUIPMENT OPERATOR-C Aster Ford SATURATION EQUIPMENT OPERATOR Work Phone: [facility] 11-17-2023 10:22-0400 Systolic blood pressure 125 mm[Hg] SATURATION EQUIPMENT OPERATOR-C Aster Ford SATURATION EQUIPMENT OPERATOR Work Phone: [facility] 11-05-2023 10:25-0500 Body height 167.64 cm SATURATION EQUIPMENT OPERATOR-C Aster Ford SATURATION EQUIPMENT OPERATOR Work Phone: [facility] 11-05-2023 10:23-0500 Body mass index (BMI) [Ratio] 28.2 kg/m2 SATURATION EQUIPMENT OPERATOR-C Aster Ford SATURATION EQUIPMENT OPERATOR Work Phone: [facility] 11-05-2023 10:230500 Body weight 79.37 kg SATURATION EQUIPMENT OPERATOR-C Aster Ford SATURATION EQUIPMENT OPERATOR Work Phone: [facility] 11-05-2023 10:23-0500 Diastolic blood pressure 82 mm[Hg] SATURATION EQUIPMENT OPERATOR-C Aster Ford SATURATION EQUIPMENT OPERATOR Work Phone: [facility] 11-05-2023 10:23-0500 Systolic blood pressure 119 mm[Hg] SATURATION EQUIPMENT OPERATOR-C Aster Ford SATURATION EQUIPMENT OPERATOR Work Phone: [facility] 10-21-2023 09:54-0500 Body mass index (BMI) [Ratio] 28.3 kg/m2 SATURATION EQUIPMENT OPERATOR-C Aster Ford SATURATION EQUIPMENT OPERATOR Work Phone: [facility] 10-21-2023 09:54-0500 Body weight 79.49 kg SATURATION EQUIPMENT OPERATOR-C Aster Ford SATURATION EQUIPMENT OPERATOR Work Phone: [facility] 10-21-2023 09:54-0500 Diastolic blood pressure 74 mm[Hg] SATURATION EQUIPMENT OPERATOR-C Aster Ford SATURATION EQUIPMENT OPERATOR Work Phone: [facility] 10-21-2023 09:54-0500 Systolic blood pressure 104 mm[Hg] SATURATION EQUIPMENT OPERATOR-C Aster Ford SATURATION EQUIPMENT OPERATOR Work Phone: [facility] 10-05-2023 10:56-0500 Body mass index (BMI) [Ratio] 28 kg/m2 SATURATION EQUIPMENT OPERATOR-C Aster Ford SATURATION EQUIPMENT OPERATOR Work Phone: [facility] 10-05-2023 10:56-0500 Body weight 78.69 kg SATURATION EQUIPMENT OPERATOR-C Aster Ford SATURATION EQUIPMENT OPERATOR Work Phone: [facility] 10-05-2023 10:56-0500 Diastolic blood pressure 75 mm[Hg] SATURATION EQUIPMENT OPERATOR-C Aster Ford SATURATION EQUIPMENT OPERATOR Work Phone: [facility] 10-05-2023 10:56-0500 Systolic blood pressure 119 mm[Hg] SATURATION EQUIPMENT OPERATOR-C Aster Ford SATURATION EQUIPMENT OPERATOR Work Phone: [facility] 09-11-2023 11:48-0500 Diastolic blood pressure 66 mm[Hg] SATURATION EQUIPMENT OPERATOR-C Aster Ford SATURATION EQUIPMENT OPERATOR Work Phone: [facility] 09-11-2023 11:48-0500 Systolic blood pressure 110 mm[Hg] SATURATION EQUIPMENT OPERATOR-C Aster Ford SATURATION EQUIPMENT OPERATOR Work Phone: [facility] 09-11-2023 11:43-0500 Body mass index (BMI) [Ratio] 27.6 kg/m2 SATURATION EQUIPMENT OPERATOR-C Aster Ford SATURATION EQUIPMENT OPERATOR Work Phone: [facility] 09-11-2023 11:43-0500 Body weight 77.56 kg SATURATION EQUIPMENT OPERATOR-C Aster Ford SATURATION EQUIPMENT OPERATOR Work Phone: [facility] 08-06-2023 09:53-0500 Body mass index (BMI) [Ratio] 27.1 kg/m2 SATURATION EQUIPMENT OPERATOR-C Aster Lorson SATURATION EQUIPMENT OPERATOR Work Phone: [facility] 08-06-2023 09:53-0500 Body weight 76.31 kg SATURATION EQUIPMENT OPERATOR-C Asterfreddie Ford SATURATION EQUIPMENT OPERATOR Work Phone: [facility] 08-06-2023 09:53-0500 Diastolic blood pressure 79 mm[Hg] SATURATION EQUIPMENT OPERATOR-C Aster Valentinoson SATURATION EQUIPMENT OPERATOR Work Phone: [facility] 08-06-2023 09:53-0500 Systolic blood pressure 119 mm[Hg] SATURATION EQUIPMENT OPERATOR-C Aster Ford SATURATION EQUIPMENT OPERATOR Work Phone: [facility] 07-08-2023 09:42-0500 Body height 167.64 cm SATURATION EQUIPMENT OPERATOR-C Aster Ford SATURATION EQUIPMENT OPERATOR Work Phone: [facility] 07-08-2023 09:40-0500 Body mass index (BMI) [Ratio] 26 kg/m2 SATURATION EQUIPMENT OPERATOR-C Aster Valentinoson SATURATION EQUIPMENT OPERATOR Work Phone: [facility] 07-08-2023 09:40-0500 Body weight 73.19 kg SATURATION EQUIPMENT OPERATOR-C Aster Ford SATURATION EQUIPMENT OPERATOR Work Phone: [facility] 07-08-2023 09:40-0500 Diastolic blood pressure 73 mm[Hg] SATURATION EQUIPMENT OPERATOR-C Aster Ford SATURATION EQUIPMENT OPERATOR Work Phone: [facility] 07-08-2023 09:40-0500 Systolic blood pressure 121 mm[Hg] SATURATION EQUIPMENT OPERATOR-C Aster Valentinoson SATURATION EQUIPMENT OPERATOR Work Phone: [facility] 06-11-2023 10:28-0400 Body mass index (BMI) [Ratio] 25.4 kg/m2 SATURATION EQUIPMENT OPERATOR-C Aster Valentinoson SATURATION EQUIPMENT OPERATOR Work Phone: [facility] 06-11-2023 10:28-0400 Body weight 71.38 kg SATURATION EQUIPMENT OPERATOR-C Aster Ford SATURATION EQUIPMENT OPERATOR Work Phone: [facility] 06-11-2023 10:28-0400 Diastolic blood pressure 64 mm[Hg] SATURATION EQUIPMENT OPERATOR-C Aster Valentinoson SATURATION EQUIPMENT OPERATOR Work Phone: [facility] 06-11-2023 10:28-0400 Systolic blood pressure 91 mm[Hg] SATURATION EQUIPMENT OPERATOR-C Aster Valentinoson SATURATION EQUIPMENT OPERATOR Work Phone: [facility] 05-14-2023 13:35-0400 Body height 167.64 cm SATURATION EQUIPMENT OPERATOR-C Aster Ford SATURATION EQUIPMENT OPERATOR Work Phone: [facility] 05-14-2023 13:29-0400 Body mass index (BMI) [Ratio] 25.7 kg/m2 SATURATION EQUIPMENT OPERATOR-C Aster Valentinoson SATURATION EQUIPMENT OPERATOR Work Phone: [facility] 05-14-2023 13:29-0400 Body weight 72.12 kg SATURATION EQUIPMENT OPERATOR-C Aster Ford SATURATION EQUIPMENT OPERATOR Work Phone: [facility] 05-14-2023 13:29-0400 Diastolic blood pressure 83 mm[Hg] SATURATION EQUIPMENT OPERATOR-C Aster Valentinoson SATURATION EQUIPMENT OPERATOR Work Phone: [facility] 05-14-2023 13:29-0400 Systolic blood pressure 130 mm[Hg] SATURATION EQUIPMENT OPERATOR-C Aster Ford SATURATION EQUIPMENT OPERATOR Work Phone: [facility] Encounters Encounter Date Encounter Type Care Provider Facility Start: 06-21-2025 ambulatory Lisa Moore lity:[facility] Start: 01-31-2025 Encounter for genera l adult medical examination without abnormal findings Lisa Heard [facility] Start: 01-26-2025 Encounter for gynecological examination (general) (routine) without abnormal findings Lisa Heard [facility] Start: 01-26-2025 End: 01-26-[address] Lisa Heard [facility] Work Phone: Start: 01-26-2025 End: 01-26-[address] Lisa Heard MD [facility] Start: 01-26-2025 End: 01-26-2025 ambulatory Asterfreddie Ford SATURATION EQUIPMENT OPERATOR-C Work Phone: [facility] Work Phone: Start: 01-26-2025 End: 01-26-2025 ambulatory Lisa Heard Facility:[facility] Start: 12-09-2023 Non-patient / Non-visit SATURATION EQUIPMENT OPERATOR-C Sharmila Ford SATURATION EQUIPMENT OPERATOR Work Phone: [facility] Start: 12-08-2023 Non-patient / Non-visit SATURATION EQUIPMENT OPERATOR-C Sharmila Ford SATURATION EQUIPMENT OPERATOR Work Phone: [facility] Start: 12-08-2023 End: 12-09-2023 Evaluation and management of inpatient SATURATION EQUIPMENT OPERATOR-C Aster Ford SATURATION EQUIPMENT OPERATOR [facility] Work [facility] Start: 12-07-2023 End: 12-07-2023 Patient encounter procedure SATURATION EQUIPMENT OPERATOR-C Aster Ford SATURATION EQUIPMENT OPERATOR Work Phone: [facility] Work Phone: Start: 12-03-2023 End: 12-03-2023 Patient encounter procedure SATURATION EQUIPMENT OPERATOR-C Aster Lorjaime SATURATION EQUIPMENT OPERATOR Work Phone: [facility] Work Phone: Start: 11-24-2023 End: 11-24-2023 Patient encounter procedure SATURATION EQUIPMENT OPERATOR-C Aster Ford SATURATION EQUIPMENT OPERATOR Work Phone: [facility] Work Phone: Start: 11-17-2023 End: 11-17-2023 ambulatory SATURATION EQUIPMENT OPERATOR-C Aster Ford SATURATION EQUIPMENT OPERATOR Work Phone: [facility] Work Phone: Start: 11-17-2023 End: 11-17-2023 Patient encounter procedure SATURATION EQUIPMENT OPERATOR-C Aster Ford SATURATION EQUIPMENT OPERATOR Work Phone: [facility] Work Phone: Start: 11-17-2023 End: 11-17-2023 Patient encounter procedure SATURATION EQUIPMENT OPERATOR-C Aster Ford SATURATION EQUIPMENT OPERATOR Work Phone: [facility] Work Phone: Start: 11-05-2023 End: 11-05-2023 ambulatory SATURATION EQUIPMENT OPERATOR-C Aster Ford SATURATION EQUIPMENT OPERATOR Work Phone: [facility] Work Phone: Start: 11-05-2023 End: 11-05-2023 Patient encounter procedure SATURATION EQUIPMENT OPERATOR-C Aster Ford SATURATION EQUIPMENT OPERATOR Work Phone: [facility] Work Phone: Start: 10-21-2023 End: 10-21-2023 Patient encounter procedure SATURATION EQUIPMENT OPERATOR-C Aster Ford SATURATION EQUIPMENT OPERATOR Work Phone: [facility] Work Phone: Start: 10-05-2023 End: 10-05-2023 Patient encounter procedure SATURATION EQUIPMENT OPERATOR-C Aster Ford SATURATION EQUIPMENT OPERATOR Work Phone: [facility] Start: 09-11-2023 End: 09-11-2023 Patient encounter procedure SATURATION EQUIPMENT OPERATOR-C Aster Ford SATURATION EQUIPMENT OPERATOR Work Phone: [facility] Work Phone: Start: 08-06-2023 End: 08-06-2023 Patient encounter procedure SATURATION EQUIPMENT OPERATOR-C Aster Ford SATURATION EQUIPMENT OPERATOR Work Phone: [facility] Work Phone: Start: 07-16-2023 End: 07-16-2023 ambulatory SATURATION EQUIPMENT OPERATOR-C Aster Ford SATURATION EQUIPMENT OPERATOR Work Phone: [facility] Work Phone: Start: 07-16-2023 End: 07-16-2023 Patient encounter procedure SATURATION EQUIPMENT OPERATOR-C Aster Ford SATURATION EQUIPMENT OPERATOR Work Phone: [facility] Work Phone: Start: 07-08-2023 End: 07-08-2023 Patient encounter procedure SATURATION EQUIPMENT OPERATOR-C Aster Ford SATURATION EQUIPMENT OPERATOR Work Phone: [facility] Work Phone: Start: 06-11-2023 End: 06-11-2023 Patient encounter procedure SATURATION EQUIPMENT OPERATOR-C Aster Ford SATURATION EQUIPMENT OPERATOR Work Phone: [facility] @ Start: 05-14-2023 End: 05-14-2023 ambulatory SATURATION EQUIPMENT OPERATOR-C Aster Ford SATURATION EQUIPMENT OPERATOR Work Phone: [facility] Work Phone: Start: 05-14-2023 End: 05-14-2023 Patient encounter procedure SATURATION EQUIPMENT OPERATOR-Kely Ford SATURATION EQUIPMENT OPERATOR Work Phone: [facility] Work Phone: Start: 05-14-2023 End: 05-14-2023 Patient encounter procedure SATURATION EQUIPMENT OPERATOR-C Aster Ford SATURATION EQUIPMENT OPERATOR Work Phone: [facility] Work Phone: Start: 02-02-2018 End: 02-02-2018 Ambulatory [facility] Start: 11-11-2017 End: 11-16-2017 Ambulatory ASTER FORD Facility:[facility] Procedures Date Procedure Procedure Detail Performing Clinician Start: 11-17-2023 Group B Streptococcu s Culture SATURATION EQUIPMENT OPERATOR-Kely Ford SATURATION EQUIPMENT OPERATOR Work Phone: Start: 11-05-2023 Ultrasound scan for growth SATURATION EQUIPMENT OPERATOR-Kely Ford SATURATION EQUIPMENT OPERATOR Work Phone: Start: 07-16-2023 Ultrasonography in f irst trimester SATURATION EQUIPMENT OPERATOR-Kely Ford SATURATION EQUIPMENT OPERATOR Work Phone: Start: 05-14-2023 Urine culture SATURATION EQUIPMENT OPERATOR-C Jimena Ford SATURATION EQUIPMENT OPERATOR Work Phone: Plan of Treatment Date Care Activity Detail Author Start: 01-26-2025 CBC W Auto Different ial panel - Blood [facility] Start: 01-26-2025 Thyroid stimulating hormone measurement [facility] Start: 12-08-2023 Patient discharge [facility] Start: 12-08-2023 Administration of medication [facility] Start: 12-08-2023 Application of ice c ollar, cap or bag [facility] Start: 12-08-2023 Catheterization of vein [facility] Start: 12-08-2023 Introduction of urinary catheter [facility] Start: 12-08-2023 Measuring intake and output [facility] Start: 12-08-2023 Notification of physician [facility] Start: 12-08-2023 Procedure discontinued [facility] Start: 12-08-2023 Provision of activity privileges [facility] Start: 12-08-2023 Vital signs measurements [facility] Start: 12-08-2023 End: 12-08-2023 [facility] Start: 12-08-2023 Documentation procedure [facility] Start: 12-08-2023 Admission procedure [facility] Erythrocyte mean cor puscular volume determination [facility] Hematocrit [Volume F raction] of Blood [facility] Hemoglobin [Mass/volume] in Blood [facility] Leukocytes [#/volume] in Blood [facility] Mean corpuscular hem oglobin concentration determination [facility] Mean corpuscular hem oglobin determination [facility] MG Breast - bilateral Screening [facility] Neutrophil count [facility] Neutrophil percent d ifferential count [facility] Patient referral [facility] Work Phone: Platelets [#/volume] in Blood [facility] Red blood cell count [facility] Red cell distributio n width determination [facility] Immunizations Immunization Date Immunization Notes Care Provider Musa blanco 06-21-2020 Influenza virus vaccine SATURATION EQUIPMENT OPERATOR-Kely Ford SATURATION EQUIPMENT OPERATOR Work Phone: [facility] 04-05-2019 measles, mumps and rubella virus vaccine SATURATION EQUIPMENT OPERATOR-Kely Ford NP Work Phone: [facility] 04-05-2019 varicella virus vaccine SATURATION EQUIPMENT OPERATOR-C Aster Ford SATURATION EQUIPMENT OPERATOR Work Phone: [facility] 01-29-2019 tetanus toxoid, redu luis alberto diphtheria toxoid, and acellular pertussis vaccine, adsorbed SATURATION EQUIPMENT OPERATOR-C Aster Ford SATURATION EQUIPMENT OPERATOR Work Phone: [facility] Payers Date Payer Category Payer Unknown [id number] 2017 Self-pay [id number] [facility] PACKAGE PLAN [id number] Unknown [id number] Unknown [id number] Social History Date Type Detail Facility Start: 05-14-2023 End: 12-08-2023 Tobacco smoking status NHIS Unknown if ever smoked [facility] Start: 04-04-2019 None [facility] Start: 1985 Sex Assigned At Female [facility] Start: 01-26-2024 Tobacco smoking stat us NHIS Never smoked tobacco (finding) [facility] Goals Date Patient Goal Desired Activity /State Clinical Notes 05-14-2023 to 01-26-2025 Note Date & Type Note Facility 01-26-2025 Evaluation note Diagnosis Onset Date Resolution Encounter for routine gynecological examination noneactive January 26, 2025 11:00am [facility] Work Phone: 1(113) 741-628805-29-2025 [facility] [address], [address] [place] [address] OFFICE VISIT Date of Service: 01/26/25 MR#: [id number] Acct: [id number] Name: ALEJANDRA RUSH Rep #: [id number] : 1985 Provider: Dr. Thomas Heard MD Age/Sex: 39/F Location: [facility] Status: Signed Intake Vital Signs 01/26/24 10:08 01/26/25 11:12 Height 5 ft 6.14 in 5 ft 6 in Weight: 161 lb BMI 25.9 BP 122/80 H Intake Visit Reasons: 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) Card Cleaner Required: No Is patient in pain?: Yes [...] menopausal: No Patient : No : [facility] Vaginal delivery Choroid plexus cyst [...] use type: does not use caffeine: No lorenzo/buddhist: Mennonite seatbelt use: always do you feel safe at home: Yes additional social history: Arvind- works at a [employer].sh uruguayan- [place] History 3 Elective abortions Hx Para 3 Spontaneous abortions Hx # Term Pregnancies Ectopic pregnancies Hx # Pregnancies Multiple births # of living children 3 Past Pregnancies Del. Date Name GA/Weeks Outcome Route Bth Weight Infant Gen Labor Lgth Anesthesia Del Locatn Provider FOB 04/04/19 Beau 39 live - full term 7lbs Male [facility] AMBAR 09/25/20 Israel 39 live - full term Male [facility] Félix 12/08/23 Madi 40 live - full term 8#4 Male [facility] [place] Delivery Date: 04/04/19 Last Updated by: [...] preventative health care screenings: [facility] Female Reproductive History Last Menstrual Period: 01/23/25 [...] acute distress, well developed and well groomed HENPA Head: normal to inspection and normocephalic Ears: [...] jordana SERVIN> Date _ Lisa Heard MD [facility] Signature: Date (if applicable) CC: ~ [facility]04-10-2024 Progress note Author Tyra Hanson [facility] December 09, 2023 11:24am Note Date/Time December 09, 2023 8:2 1am [facility] Medical Records Department [address] [place] [address] Progress Note - OBGYN 12/09/23819 MR#: [id number] Acct: [id number] Name: ALEJANDRA RUSH Rep #:[id number] : 1985 38 From: Tyra Hanson CNM PCP: SAL Shipman Status:ADM I N Location: [place] [address] Subjective Subjective Patient doing well without complaints. [...] Cosigner Signature (if applicable): CC: ~ Signed [facility] Work Phone: 1(996) 617-355204-09-2024 Discharge summary Author Lisa Heard [facility] December 08, 2023 5:41pm Note Date/Time December 08, 2023 5:41 pm [facility] Medical Records Department [address] [place] [address] Instructions for Home/Discharge Instructions 12/08/23 1741 MR#: [id number] Acct: [id number] Name: ALEJANDRA RUSH Rep #:[id number] : 1985 38 From: Lisa amaya MD [...] Up With: Lisa Heard MD When: Call [phone] to make an appointment with your doctor [...] Referrals / Follow Up: Aster Ford NP, SATURATION EQUIPMENT OPERATOR-C [Primary Care Provider] - Disposition Disposition (needs filled in before D/C Order can be placed): Home, Self Care 12/08/23 1741<Electronically signed by Lisa Heard MD>Lisa Heard MD CC: SATURATION EQUIPMENT OPERATOR-C Aster Ford ~ Signed [facility] Work Phone: 1(702) 478-537404-09-2024 Procedure [facility] 12-08-2023 History and physical note Author Lisa Heard [facility] December 08, 2023 9:11am Note Date/Time December 08, 2023 9:11 am [facility] Medical Records Department [address] [place] [address] H&P 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 Date Name GA/Weeks Outcome Route Bth Weight Gen Labor Lgth Anesthesia Del Locatn Provider FOB 04/04/19 Beau 39 live - full term 7lbs Male [facility] 09/25/20 [place] 39 live - full term Male [facility] [place] Delivery Date: 04/04/19 Last Updated by: [...] any complications: ama I have reviewed the [facility] and made any clinically relevant updates. 12/08/23 0911 <Electronically signed by Lisa Heard MD> Cosigner Signature (if applicable): CC: SAL Ford; Dr. Lisa Heard MD~ Signed [facility] Work Phone: 1(362) 823-310309-14-2023 NotePap Smear Specimen AdequacySeptember 2022 3:13pmComment.Satisfactory for evaluation. Endocervical and/or squamous metaplasticcells (endocervical component)are present.[facility] INTER[facility]ACED A#[id number] HospitalComment on above:Satisfactory for evaluation. Endocervical and/or squamous metaplasticcells (endocervical component)are present.05-14-2023 NotePap Smear Specimen AdequacySeptember 2022 3:13pmComment.Satisfactory for evaluation. Endocervical and/or squamous metaplasticcells (endocervical component)are present.[facility] INTER[facility]ACED A#[id number] HospitalComment on above:Satisfactory for evaluation. Endocervical and/or squamous metaplasticcells (endocervical component)are present.05-14-2023 NotePap Smear Specimen AdequacySeptember 2022 2:13pmComment.Satisfactory for evaluation. Endocervical and/or squamous metaplasticcells (endocervical component)are present.[facility] INTERFACED A#[id number] HospitalComment on above:Satisfactory for evaluation. Endocervical and/or squamous metaplasticcells (endocervical component)are present.Evaluation note* Diagnosis Onset Date Resolution Status AMA (advanced maternal age) multigravida 35+ acute acute Rubella non-immune status, antepartum acute Supervision of high risk , antepartum acute [facility] Work Phone: Evaluation note* Diagnosis Onset [...] Supervision of high risk , antepartum acute [facility] Work Phone: Evaluation note* Diagnosis Onset [...] Supervision of high risk , antepartum acute [facility] Work Phone: Evaluation note* Diagnosis Onset [...] Supervision of high risk , antepartum acute [facility] Work Phone: Evaluation note* Diagnosis Onset [...] Supervision of high risk , antepartum resolved [facility] Work Phone: Evaluation note* Diagnosis Onset Date Resolution Status Admit Date Encounter for routine gynecological examination noneactive January 262024 11:00am [facility] Work Phone: Progress note Author Lisa Heard [facility] Note Date/Time January 26, 2025 11:50 am [facility] [address] [place] [address], [address] [place] [address] OFFICE VISIT Date of Service: 01/26/25 MR#: [id number] Acct: [id number] Name: ALEJANDRA RUSH Rep #: [id number] : 1985 Provider: Dr. 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 Date Name GA/Weeks Outcome Route Bth Weight Infant Gen Labor Lgth Anesthesia Del Locatn Provider FOB 04/04/19 Beau 39 live - full term 7lbs Male [facility] 09/25/20 [place] 39 live - full term Male [facility] [place] 12/08/23 Madi 40 live - full term 8#[address] [facility] [place] Delivery Date: 04/04/19 Last Updated by: [...] preventative health care screenings: [facility] Female Reproductive History Last Menstrual Period: 01/23/25 [...] acute distress, well developed and well groomed HENPA Head: normal to inspection and normocephalic Ears: [...] Manning Signature: Date (if applicable) CC: ~ [facility] Work Phone: Reason for referral (narrative)No reason for referral information availableScripps Memorial Hospital Work Phone: Summary Purpose Family History No Family History Records Found Relationship Condition Age at Onset Recorded Date/T ghazala father Anxiety Unknown Advance Directives No Advanced Directives Records Found Advance Directive Response Recorded Date/ Time Living Will No March 05, 2023 3 :02pm Power of Signal Wirer No March 05, 2023 3:02pm Advance Directive Response Recorded Date/ Time Living Will No March 05, 2023 2 :02pm Power of Signal Wirer No March 05, 2023 2:02pm Advance Directive Response Recorded Date/ Time Living Will No September 24 3:06pm Power of Signal Wirer No September 24, 2020 3:06pm Advance Directive Response Recorded Date/ Time Living Will No December 08, 2023 8:08am Power of Signal Wirer No December 07 8:08am Chief Complaint and [...] , antepartum Chief Complaint Admit Date 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) January 26, 2025 11:00 am Reason for Visit Admit Date Encounter for routine gynecological exam ination January 26, 2025 11:00am Additional Source Comments INFORMATION SOURCE (unrecogn ized section and content) DATE CREATED AUTHOR 02/16/2018 [facility] DATE CREATED AUTHOR AUTHOR'S ORGANIZ ATION 02/19/2018 [facility] ([place]) DATE CREATED AUTHOR AUTHOR'S ORGANIZ ATION [facility] Care Teams (unrecognized sec tion and content) Team Status: Active Member Role Status Dates No Primary Care Physician Family Provider Active Aster Ford NP, SATURATION EQUIPMENT OPERATOR-C Primary Care Provider Active Team Status: Inactive Member Role Status Dates Aster Ford SATURATION EQUIPMENT OPERATOR, SATURATION EQUIPMENT OPERATOR-C Primary Care Provider, Referri ng Provider Active Erica Macario CNM Attending Provider Active Team Status: Inactive Member Role Status Dates Aster Ford SATURATION EQUIPMENT OPERATOR, SATURATION EQUIPMENT OPERATOR-C Primary Care Provider Active Erica Macario CNM Attending Provider, Referring Pro vider Active Team Status: Active Member Role Status Dates Aster Ford SATURATION EQUIPMENT OPERATOR, SATURATION EQUIPMENT OPERATOR-C Primary Care Provider Active Erica Macario CNM Attending Provider, Referring Pro vider Active Team Status: Inactive Member Role Status Dates Aster Ford SATURATION EQUIPMENT OPERATOR, SATURATION EQUIPMENT OPERATOR-C Primary Care Provider, Referri ng Provider Active Tyra Hanson CNM Attending Provider Active Team Status: Inactive Member Role Status Dates Aster Ford SATURATION EQUIPMENT OPERATOR, SATURATION EQUIPMENT OPERATOR-C Primary Care Provider, Referri ng Provider Active Dr. Lissa Wu DO Attending Provider Activ e Team Status: Inactive Member Role Status Dates Aster Ford SATURATION EQUIPMENT OPERATOR, SATURATION EQUIPMENT OPERATOR-C Primary Care Provider Active Tyra Hanson CNM Attending Provider, Referring Pr ovider Active Team Status: Inactive Member Role Status Dates Aster Ford SATURATION EQUIPMENT OPERATOR, SATURATION EQUIPMENT OPERATOR-C Primary Care Provider, Referri ng Provider Active Dr. Lisa Heard MD Attending Provider Active Team Status: Inactive Member Role Status Dates Aster Ford SATURATION EQUIPMENT OPERATOR, SATURATION EQUIPMENT OPERATOR-C Primary Care Provider Active Dr. Lisa Heard MD Attending Provider, Referr ing Provider Active Team Status: Active Member Role Status Dates Aster Ford SATURATION EQUIPMENT OPERATOR, SATURATION EQUIPMENT OPERATOR-C Primary Care Provider Active Erica Macario CNM Admit Provider, Ref erring Provider, Other Provider Active Dr. Lisa Heard MD Attending Provider Active Team Status: Active Member Role Status Dates Aster Ford SATURATION EQUIPMENT OPERATOR, SATURATION EQUIPMENT OPERATOR-C Primary Care Provider Active Dr. Lisa Heard MD Admit Provid er, Referring Provider, Other Provider Active Tyra Hanson CNM Attending Provider Active Team Status: Inactive Member Role Status Dates Aster Ford SATURATION EQUIPMENT OPERATOR, SATURATION EQUIPMENT OPERATOR-C Primary Care Provider Active Dr. Lisa Heard MD Admit Provid er, Attending Provider, Referring Provider Active Team Status: Inactive Member Role Status Dates Aster Ford SATURATION EQUIPMENT OPERATOR, SATURATION EQUIPMENT OPERATOR-C Primary Care Provider Active Start: January 26, 2025 End: January 26, 2025 Aster Ford SATURATION EQUIPMENT OPERATOR, SATURATION EQUIPMENT OPERATOR-C Referring Provider Active Start: January 26, 2025 End: January 26, 2025 Dr. Lisa Heard MD Attending Provider Active Start: January 26, 2025 End: January 26, 2025 Team Status: Active Member Role Status Dates Aster Ford NP, SATURATION EQUIPMENT OPERATOR-C Primary Care Provider Active Start: January 26, 2025 Dr. Lisa Heard MD Attending Provider Active Start: January 26, 2025 Dr. Lisa Heard MD Referring Provider Active Start: January 26, 2025 Team Status: Inactive Member Role Status Dates Aster Ford NP, SATURATION EQUIPMENT OPERATOR-C Primary Care Provider Active Start: January 26, [...] BE BASED ON THE PRIMARY CLINICAL RECORDS. [employer] provides no warranty or guarantee of the accuracy or completeness of information in this document.
== END | disposition home or self-care (01) ==
PROVIDERS: PCP Nurse Practitioner Family; Referring Provider Obstetrics & Gynecology; Visit Provider Obstetrics & Gynecology
DX: Z12.31 Encounter for screening mammogram for malignant neoplasm of breast (principal)
CPT/HCPCS: 77063; 77067